=== PATIENT | male | born 1975 | race Caucasian/White ===

== ENCOUNTER → 2017-08-19 16:51 | Outpatient (CLI) | payer MEDICARE, MEDICAID, SELFPAY ==
[2017-08-19 18:03] LABS: Hematocrit 40.8 % (40-54); Hemoglobin 13.9 g/dl (13.0-16.5); Mean Corp Hgb Conc 34.1 g/gl (32-36); Mean Corpuscular Volume 93.8 fL (80-94); Mean Platelet Vol. 9.9 fl (6.2-12.0); Platelet Count 418 K/mm3 (150-450); RBC Distribution Width CV 12.5 % (11.6-14.6); Red Blood Count 4.35 M/mm3 (4.6-6.2); White Blood Count 14.3 K/mm3 (4.4-11.0)
[2017-08-19 18:28] LABS: Vitamin B12 366 pg/mL (211-911); Vitamin D,25 Hydroxy 13.5 ng/mL (29.95-100.01)
[2017-08-19 18:39] LABS: AST(SGOT) 14 U/L (15-37); Alanine Aminotransfer ALT/SGPT 22 U/L (16-61); Albumin, Serum 3.7 g/dL (3.2-5.0); Alkaline Phosphatase 90 U/L (45-117); Anion Gap 7 (5-15); BUN 10 mg/dL (7-18); BUN/Creat Ratio 9.4 RATIO (10-20); Calcium,Total 8.7 mg/dL (8.5-10.1); Chloride 103 mmol/L (98-107); Creatinine, Serum 1.06 mg/dL (0.70-1.30); EST Glomerular Filtration Rate 81 mL/min (>60); Est Glom Filt Rate - Afr Amer 98 mL/min (>60); Globulin 3.7 g/dL (2.2-4.2); Glucose 81 mg/dL (74-106); Potassium 3.9 mmol/L (3.5-5.1); Protein, Total 7.4 g/dL (6.4-8.2); Sodium Level 140 mmol/L (136-145); Thyroid Stim Hormone (TSH) 1.26 uIU/mL (0.358-3.74)
[2017-08-20 15:40] LABS: Absolute Lymphocyte Count 2.76 X10^3/ul (0.83-4.51); Absolute Neutrophil Count 9.4 X10^3/uL (2.0-7.7); Basophil# 0.08 X10^3/uL; Basophil% 0.6 % (0-1); Differential Indicated SCAN CRITERIA MET; Eosinophil# 0.59 X10^3/uL; Eosinophils% 4.1 % (0-5); Lymphocyte # 2.76 X10^3/ul (4.0); Lymphocyte % 19.1 % (19-41); Monocyte# 1.56 X10^3/uL; Monocyte% 10.8 % (0-10); Neutrophil # 9.42 X10^3/uL (2.7-7.7); Neutrophil % 65.1 % (47-70); POSITIVE COUNT NO; POSITIVE DIFFERENTIAL YES; POSITIVE MORPHOLOGY YES
[2017-08-20 16:39] LABS: Differential Comment SCANNED
== END ==
PROVIDERS: Visit Provider Family Medicine
DX: R53.81 Other malaise (principal)
CPT/HCPCS: 36415; 80053; 82306; 82607; 84403; 84443; 85025; 85027

== ENCOUNTER → 2017-09-04 12:48 | Outpatient (CLI) | payer MEDICARE, SELFPAY ==
--- NOTE | 2017-09-04 13:00 | RAD_ITS ---
STUDY: X-RAY - LUMBAR SPINE REASON FOR EXAM: Male, 42 years old. Chronic back pain. TECHNIQUE: 3 view(s) of the lumbar spine were obtained. COMPARISON: Comparison is made with prior study dated April 07, 2014. FINDINGS: There is straightening of the normal lumbar lordosis. There is no substantial scoliosis. There is a normal alignment of the vertebrae. There is multilevel endplate spondylosis of the lumbar vertebrae. Marked degree of disc space narrowing at the L5-S1 level. Moderate degree of disc space narrowing at the L4-L5 level. This has progressed as compared to prior study. The soft tissue structures are unremarkable. RAD/Lumbar Spine 2 or 3 Views IMPRESSION: Degenerative changes of the spine, as detailed above. Electronically Signed: Sal Cole MD at 16:09 EDT Tel [phone], Service support ,
== END ==
PROVIDERS: Family Provider Family Medicine; PCP Family Medicine; Visit Provider Anesthesiology Pain Medicine
DX: M54.9 Dorsalgia, unspecified (principal); G89.29 Other chronic pain
CPT/HCPCS: 72100

== ENCOUNTER 2017-10-29 18:00 | Outpatient (RCR) | payer MEDICARE, MEDICAID, SELFPAY ==
--- NOTE | 2017-09-25 18:55 | HP.PTEVAL ---
Patient's Visit Information HUDSON SHARIF is a 42 year old M referred to Physical Therapy by Renetta Rosen with a diagnosis of Back and leg pain and joint pain.. Date of Evaluation: 09/25/17 Physical Therapist: Isabela Salazar - Visit Plan Frequency: 2x /Week Duration: 4 Weeks Plan: 2X/week for week for general core, hip, knee strengthening being mindful of psoriatic and OA to improve general strength and decrease overall pain with HEP. - Subjective Subjective: Pt reports that many years ago he was dx with osteoporosis, OA, and psoriatic arthritis. THis is due to having an autoimmune disorder. 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 He is confused as to how this will help his pain due to an autoimmune disease. He is on Ultram 50 mg 2X/day and doing injections in his back. Hudson Mendoza was dx with DDD in his spine and Jessika said narrowing of the L4-L5 as well. This would be the first time that he would be doing PT. He is trying to get an appointment with [facility] as well. Somedays he walks with a limp. Dr Bloom said the pt has no cartilage left in his knees. He works 5 hours a day for 5 hours a week. Stairs: he can't run up the stairs. Somedays her can go recip and some says he has to go 2 feet to a stair. He notices more problems going down stairs than going up stairs. Sit to stand he usually does not have apronlem. - Pain Back pain Pain Intensity (Out of 10): 4 Pain Intensity Range: 7 knees and hip pain Pain Intensity (Out of 10): 4 Pain Intensity Range: 7 - Objective Gait: walks with decrease stance time on the R LE. Trunk ROM: flex 100%, ext 25% with increase motion on the L than the R, SB B 75%. LE MMT: Prone hip ext R 3+/5 and L 4-/5, hip flex R 4/5 and L 4+/5, knee ext B 4+/5, R knee flex 4/5 and L 4+/5, B hip abd 4+/5, pt is able to heel and toe raise B. Decreased IR of B hips with increase pain. -SLUMP test (just HS tightness B). -SLR (just HS tightness and some pain in B hips). Patella DTR B 2+/3 - Goals Goal 1:: I HEP Goal Time Frame: 4-6 Weeks Goal 2:: Increase B hip ext strength to 4/5 and hip flex strength to 4+/5 Goal Time Frame: 4-6 Weeks Goal 3:: Subjectively decrease pain in back and B hips and knees to 3/10 on daily basis Goal Time Frame: 4-6 Weeks - Rehabilitation Potential Rehabilitation Potential: Good - Anticipated Interventions Patient/Client Instruction: Educate patient on: Condition, Plan of Care For the Purpose of:: To decrease pain, To decrease swelling/inflammation, To increase ROM, To improve nutrient delivery to tissue, To improve muscle performance and motor function, To improve ability to perform ADL's, To increase tolerance to activity/condition/position, To improve ability of physical actions for home/community/work/leisure, To improve gait and locomotor functions, To improve health of tissue Therapeutic Exercise to Include: Strength training, Postural training, Active ROM, Dynamic Lumbar Stabilization For the Purpose of:: To decrease pain, To increase ROM, To improve nutrient delivery to tissue, To improve muscle performance and motor function, To improve ability to perform ADL's, To increase tolerance to activity/condition/position, To improve performance and independence with ADL's, To improve ability of physical actions for home/community/work/leisure, To improve health of tissue Thank you for the opportunity to evaluate your patient. For Medicare and Medicare HMO plans, please review the plan of care and approve it. It will need to be FAXED BACK to us at [phone] for Medicare purposes. Please let me know if there are questions or concerns regarding this plan of care. Physician Signature: Date:
--- NOTE | 2017-10-29 18:00 | DT_ITS ---
This patient was seen during an EMR downtime October 28, 2017 - November 04, 2017. This patient may have a combination of paper and electronic documentation or all paper documentation. All documentation is viewable within the e-chart portion of [facility] for each patient visit.
--- NOTE | 2018-02-05 17:43 | HP.PTDCNRP_ITS ---
HP - Discharge Summary (1) - Patient Information SUSAN SHARIF was seen in my office for initial evaluation on 09/25/17. The following Plan of Care was established for this patient: Initial Frequency: 2x /Week Initial Duration: 4 Weeks - Anticipated Interventions Patient/Client Instruction: Educate patient on: Condition, Plan of Care For the Purpose of:: To decrease pain, To decrease swelling/inflammation, To increase ROM, To improve nutrient delivery to tissue, To improve muscle performance and motor function, To improve ability to perform ADL's, To increase tolerance to activity/condition/position, To improve ability of physical actions for home/community/work/leisure, To improve gait and locomotor functions, To improve health of tissue Therapeutic Exercise to Include: Strength training, Postural training, Active ROM, Dynamic Lumbar Stabilization For the Purpose of:: To decrease pain, To increase ROM, To improve nutrient delivery to tissue, To improve muscle performance and motor function, To improve ability to perform ADL's, To increase tolerance to activity/condition/ position, To improve performance and independence with ADL's, To improve ability of physical actions for home/community/work/leisure, To improve health of tissue This patient was last seen in our office 10/29/17. Pertinent comments regarding their Physical therapy will appear below: JACK PT At this point I will be discontinuing this patient from physical therapy. I would be happy to see this patient again in the future if found appropriate by the physician. Thank you! Isabela Salazar
== END 2017-10-29 19:00 | disposition home or self-care (01) ==
LOC: PT 18:00
PROVIDERS: Family Provider Family Medicine; PCP Family Medicine; Visit Provider Anesthesiology Pain Medicine
DX: M54.9 Dorsalgia, unspecified (principal); M79.606 Pain in leg, unspecified; M25.50 Pain in unspecified joint
CPT/HCPCS: 97110; 97162

== ENCOUNTER → 2017-11-16 08:33 | Outpatient (CLI) | payer MEDICARE, MEDICAID, SELFPAY ==
--- NOTE | 2017-11-16 09:15 | MRI_ITS ---
STUDY: MRI LUMBAR SPINE WITHOUT CONTRAST REASON FOR EXAM: Male, 42 years old. Low back pain and joint pain. TECHNIQUE: Standardized fat and water weighted pulse sequences were obtained in the sagittal and axial planes. COMPARISON: None FINDINGS: T11-T12: (Sagittal only). Minimal anterior marginal spurs. Normal endplates. Normal disc height, hydration and morphology. Normal central canal and bilateral intervertebral neural foramina. T12-L1: (Sagittal only). Normal endplates. Normal disc height, hydration and morphology. Normal central canal and bilateral intervertebral neural foramina. Normal lumbar lordosis. There is no substantial scoliosis. Normal conus medullaris that terminates at the mid L1 vertebral body level. L1-2: Anterior marginal spurs. Moderate disc space height narrowing but normal disc hydration. Small posterior bulging disc. Normal central canal and bilateral lateral recesses. Normal facet joints. Normal bilateral intervertebral neural foramina. L2-3: Minimal anterior marginal spurs. Normal endplates. Moderate disc space height narrowing. Tiny posterior bulging disc. Normal central canal and bilateral lateral recesses. Normal facet joints. Normal bilateral intervertebral neural foramina. L3-4: Normal endplates. Normal disc height, hydration and morphology. Normal bilateral facet joints. Normal central canal and bilateral lateral recesses. Normal bilateral intervertebral neural foramina. L4-5: Moderate disc space height narrowing. Moderate loss of disc hydration. Moderate central canal stenosis with an AP canal diameter of 8 mm. Small posterior annular bulging disc. Mild asymmetric degenerative facet arthropathy. Normal bilateral intervertebral neural foramina. L5-S1: Pronounced disc space height narrowing. Modic type II degenerative vertebral marrow fatty changes underneath the vertebral endplates. Nearly grade 1 degenerative retrolisthesis of L5 on S1. Mild degenerative facet arthropathy. Normal central canal and bilateral lateral recesses. Normal bilateral intervertebral neural foramina. Normal visualized sacral ala. Normal visualized paraspinous soft tissue structures. MRI/Spine Lumbar (Routine) IMPRESSION: 1. No MRI evidence of lumbar extruded disc fragment. 2. Pronounced L5-S1 disc space height narrowing with Modic type II degenerative vertebral marrow fatty changes underneath the vertebral endplates and nearly grade 1 degenerative retrolisthesis of L5 on S1. 3. Moderate L4-L5 disc space height narrowing with moderate central canal stenosis and small posterior annular bulging disc. 4. Moderate L1-L2 disc space height narrowing with small posterior bulging disc. 5. Moderate L2-L3 disc space height narrowing with small posterior bulging disc. Electronically Signed: Jaswant Lynch MD at 14:27 EDT , Service support ,
== END ==
LOC: MRI 08:35
PROVIDERS: Family Provider Family Medicine; PCP Family Medicine; Visit Provider Anesthesiology Pain Medicine
DX: M54.9 Dorsalgia, unspecified (principal); M79.606 Pain in leg, unspecified
CPT/HCPCS: 72148

== ENCOUNTER 2017-12-24 06:20 | Emergency (ER) | payer MEDICARE, SELFPAY ==
[2017-12-24 06:22] VITALS: BP 133/90; PULSE 78; RESP 16; TEMP 36.7; O2SAT 98; BMI 22.9
--- NOTE | 2017-12-24 06:59 | ED.DCSUM_ITS ---
- ER Visit Summary Date of Service: 12/24/17 Chief Complaint: Right eye foreign body sensation History of Present Illness: The patient is a 42 M foreign body sensation right eye yesterday after using a weed Ricky. States felt some irritation however worsen. No change in the vision. Burning sensation. Does not wear contacts or glasses. 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 Did not well. No nausea or vomiting. History of asthma. Physical Examination: General: Alert and oriented ?3, no acute distress HEENT: Normocephalic, atraumatic. Moist mucosa membranes. Right eye examination moist Q-tip eyelid margins and everted, no foreign bodies. There was diffuse scleral injection. Tetracaine instilled, fluorescein strip with no dye uptake. Neck: supple, nontender. Cardiovascular: Regular rate and rhythm, no murmurs Respiratory: Normal breath sounds, symmetric, no distress Abdomen: Soft, nontender, nondistended Extremities: Nontender, no edema, pulses intact ?4 Neuro: no focal neurological deficits. Test Results: [] Emergency Department Course and Treatment: Patient exam concerns for conjunctivitis. No visual changes. Antibiotic drops will be provided. He can use rewetting drops in between. Follow-up with eye doctor. Treatment Plan: [] Disposition: Discharge Impression: Right eye conjunctivitis This note was generated with [employer] dictation software. It may contain incorrect words, spelling, and punctuation that were not noted in review of the chart prior to signing ED Disposition - Plan for ED Patient: Disposition: Home or Assisted Living Chief Complaint: Eye Problem Diagnosis: Conjunctivitis, right eye Instructions: ED Conjunctivitis Nonspecific Prescriptions: Polymyxin B Sulf/Trimethoprim [Polytrim Eye Drops] 1 drop RIGHT EYE BID #1 bottle Referrals: Jong Zaldivar MD [Primary Care Provider] - Additional Instructions: Follow with eye doctor for reevaluation.
== END 2017-12-24 07:08 | disposition home or self-care (01) ==
PROVIDERS: Emergency Provider Emergency Medicine; Family Provider Family Medicine; PCP Family Medicine
DX: H10.9 Unspecified conjunctivitis (principal); K22.2 Esophageal obstruction; T18.128A Food in esophagus causing other injury, initial encounter; X58.XXXA Exposure to other specified factors, initial encounter; Y93.9 Activity, unspecified; Y92.9 Unspecified place or not applicable; Y99.9 Unspecified external cause status; K44.9 Diaphragmatic hernia without obstruction or gangrene; J44.9 Chronic obstructive pulmonary disease, unspecified; M54.9 Dorsalgia, unspecified; G89.29 Other chronic pain; F17.210 Nicotine dependence, cigarettes, uncomplicated; Z79.899 Other long term (current) drug therapy
CPT/HCPCS: 43247; 93005; 99282; 99283; J7030; J7120; A4216; J1610; J2405

== ENCOUNTER 2017-12-24 19:35 | Outpatient (CLI) | payer MEDICARE, MEDICAID, SELFPAY ==
[2017-12-24 19:35] VITALS: BP 159/105; PULSE 79; RESP 24; TEMP 36.9; O2SAT 98; BMI 22.9
[2017-12-24] MEDS: 0.9% Normal Saline 1,000 ML 1000 ML IV (20:12)
[2017-12-24] MEDS: Glucagon 1 MG/ML Syringe IV (20:12)
--- NOTE | 2017-12-24 21:01 | HP.PCM_ITS ---
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 His primary care physician is Dr. Hudson Zaldivar. 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 The patient has had at least 3 or 4 previous upper endoscopies. The patient has had esophageal dilatation. The patient has had a single episode of food bolus foreign body obstruction approximately 7 years ago. He claims to have known a small hiatal hernia. He has had a previous history of reflux and was on chronic reflux medication but states that recently over an extended period time he has not had reflux symptoms. He states that he ate a piece of baked chicken 2-3 hours ago and it is failed to pass. He is a asthmatic. He is on 3 different inhalers that he takes as needed. He is a 1-1/ 2 pack per day smoker. He suggests that he has had previous history of chronic gastritis and he is not medicating it currently. He is on other medication which he takes only as he sees indicated. He has not had any abdominal surgery. Past Medical History Allergies epinephrine Allergy (Verified 12/24/17 06:24) Unknown Home Medications: Ambulatory Orders Medication Instructions Recorded Albuterol IH (ProAir) [Proair Hfa] 1 puff INHALATION Q4H PRN PRN 04/30/13 Albuterol/Ipratropium [Combivent 2 puff INHALATION 4X/DAY 04/30/13 Inhaler] Clonazepam [Klonopin] 0.5 mg PO TID PRN 04/30/13 Duloxetine Hcl [Cymbalta] 30 mg PO DAILY 04/30/13 Polymyxin B Sulf/Trimethoprim 1 drop RIGHT EYE BID #1 bottle 12/24/17 [Polytrim Eye Drops] traMADol [Ultram (G)] 50 mg PO BID 12/24/17 Surgical History: appendectomy - Esophagoscopy with foreign body removal and on a separate occasion diagnostic endoscopy and on a separate occasion upper endoscopy with esophageal dilatation 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, - - Right knee arthroscopy Smoking Status: Current every day smoker Tobacco Use: Cigarettes - 1-1/2 pack per day Alcohol: None Review of Systems Constitutional: Denies: Anorexia Eyes: Denies: Blurred vision HEENT: Denies: Difficulty Hearing Cardiovascular: Denies: Chest Pain Respiratory: Reports: Cough Gastrointestinal: Denies: Abdominal Pain VTE Information - Inpt Only VTE Present on Admission: No Patient Problems: Active and Suspected Problems Distal esophageal obstruction due to foreign body (Acute) Asthma (Acute) Tobacco abuse (Acute) - Physical Exam General: Alert, Oriented x3, Cooperative, No apparent distress HEENT: Atraumatic Oral: Moist Mucosa Neck: Supple Lungs: Clear to auscultation, - - Increased anterior posterior diameter Cardiovascular: Regular rate, Regular Rhythm Abdomen: Bowel Sounds Present, Soft, Non Tender, Non-Distended Extremities: Clubbing Neurological: Cranial nerves II-XII grossly intact Psych/Mental Status: Normal Affect Vital Signs Temp Pulse Resp BP Pulse Ox 98.4 F 79 24 H 159/105 H 98 12/24/17 19:35 12/24/17 19:35 12/24/17 19:35 12/24/17 19:35 12/24/17 19:35 Oxygen Delivery Method Room Air Weight: 138 lb Body Mass Index (BMI) 22.9 Assessment/Plan All Active Problems Conjunctivitis, right eye (Acute) Distal esophageal obstruction due to foreign body (Acute) Asthma (Acute) Tobacco abuse (Acute) Baked chicken esophageal foreign body obstruction. This is his second episode of food bolus obstruction. He claims that he has had previous endoscopy performed by Dr. Kyle Roberts and actually a previous dilatation. The patient does not know a diagnosis for esophageal disorder. He states that he has never been given a reason for his esophageal dysfunction per Dr. Kyle Roberts I have discussed with the patient he has higher risk for complication. He may have structural abnormality of the esophagus. He has COPD with ongoing heavy tobacco addiction. I am recommending to him that we perform this under general endotracheal intubation. I have cautioned him that this may not simply be a upper endoscopy with pushing the mass into the stomach. Fragment removal may be required. The patient is at risk for pulmonary aspiration. He has had an opportunity to ask and have questions answered. He is well aware that adverse outcome including perforation bleeding aspiration pneumonia are all a possibility. We will proceed at his discretion. Jesus Mcdonald M.D., F.A.C.S.
--- NOTE | 2017-12-24 21:03 | EKGRS_ITS ---
Test Reason : PRE-OP Blood Pressure : / mmHG Vent. Rate : 066 BPM Atrial Rate : 066 BPM P-R Int : 102 ms QRS Dur : 088 ms QT Int : 390 ms P-R-T Axes : 074 084 063 degrees QTc Int : 408 ms Sinus rhythm with short AR Otherwise normal ECG Confirmed by EVELIN FELICIANO, KOLE ([id number]), editor news CLARA CARRERA ([id number]) on 12/26/2017 11:48:18 AM Referred By: REFUGIO Confirmed By:KOLE WATERS MD
--- NOTE | 2017-12-24 22:16 | PCM.OPRPT ---
Problem List (1) Distal esophageal obstruction due to foreign body Status: Acute (2) Asthma Status: Acute Qualifiers: Asthma complication type: unspecified (3) Tobacco abuse Status: Acute Report of Operation Date of Procedure: 12/24/17 Pre-Operative Diagnosis: Esophageal food foreign body obstruction Post-Operative Diagnosis: Impaction in the distal esophagus at the e.g. junction Food foreign body obstruction Surgery/Procedure Performed:: Esophagogastroduodenoscopy with retrieval of esophageal foreign body Description of Surgical Findings:: Timeout and informed consent was obtained. 42-year-old gentleman was taken to the operating room. He underwent general endotracheal intubation. He was placed in left lateral decubitus position. Kneepads and shoulder roll were placed. Flexible gastroscope was inserted passed a bite block. The proximal mid distal esophagus not remarkable all the way down to the GE junction where there was a large food foreign bile duct obstruction consistent with the piece of baked chicken that the patient described. I initially tried to gently manipulate the piece into the stomach and was not able to. I then tried to get Shashank firm retrieval net around it that was not successful. I then placed a 36 Bhutanese chest tube on the end of the gastroscope and is attempted to suction the foreign body which was not successful. I then utilized a 4 pronged grasper to grab the apex of the pes and with that was able to successfully retrieve the majority of the obstruction. I then replaced the scope and additional time was able to assure clearance of the distal esophagus. There was a significant amount of food still remaining within the stomach. There was no antral erythema. Duodenum had some very minimal irritation. There were no additional biopsies performed today. Due to the acuteness of the situation I recommend a follow-up outpatient endoscopy to further evaluate his esophageal dysfunction. There was some mild irritation of the esophagus from the repetitive instrumentation and removal of foreign body. There is no active bleeding. I did not see any disruption. He seemed to tolerate the procedure well. He is taken to the recovery area in satisfactory condition. Specimens include the floor body impaction which was discarded. Drains none. Blood loss minimal. eJsus Mcdonald M.D., F.A.C.S. Type of Anesthesia:: General Anesthesiologist: Marleen Carter
[2017-12-24 22:30] VITALS: BP 134/92; BP 159/105; PULSE 90; RESP 18; TEMP 37.2; O2SAT 99
--- NOTE | 2017-12-24 22:31 | DCINST_ITS ---
Discharge Diet: - - Clear liquids for 24 hours orally. No excessively hot liquids Discharge Activity: Return to Normal Activity, May Drive May shower in (days): 1 Additional Instructions: I am recommending that as an outpatient in the future that you pursue esophageal manometry to evaluate the mechanical function of your esophagus. Allergies/Adverse Reactions: Allergies epinephrine Allergy (Verified 12/24/17 06:24) Unknown Medications to take at Discharge Albuterol IH (ProAir) [Proair Hfa] 1 puff INHALATION Q4H PRN PRN 04/30/13 Albuterol/Ipratropium [Combivent Inhaler] 2 puff INHALATION 4X/DAY 04/30/13 Clonazepam [Klonopin] 0.5 mg PO TID PRN 04/30/13 Duloxetine Hcl [Cymbalta] 30 mg PO DAILY 04/30/13 Polymyxin B Sulf/Trimethoprim [Polytrim Eye Drops] 1 drop RIGHT EYE BID #1 bottle 12/24/17 traMADol [Ultram (G)] 50 mg PO BID 12/24/17 Primary Care Physician: Jong Zaldivar MD [Primary Care Provider] - Test Results: Test results from this visit will be discussed in further detail at your follow- up appointment, if applicable. Please Follow Up With: Jesus Mcdonald MD - [phone] When: Call to make an appointment to be seen in about 10 days.
[2017-12-24 22:45] VITALS: BP 130/89; BP 159/105; PULSE 74; RESP 18; O2SAT 100
[2017-12-24 22:50] VITALS: BP 120/81; BP 159/105; PULSE 78; RESP 16; TEMP 36.8; O2SAT 98
[2017-12-24 22:55] VITALS: BP 159/105
--- NOTE | 2017-12-25 01:13 | ED.DCSUM_ITS ---
- ER Visit Summary Date of Service: 12/25/17 Chief Complaint: Chicken stuck in esophagus History of Present Illness: The patient is a [address] Lagos. Reports that approximately 2 hours ago he was eating chicken and got stuck in his lower esophagus. Reports that he is a dull pressure with 7-10 worst 510 currently. Denies any nausea, vomiting, or diarrhea. Reports that a similar episode approximately 7 years ago. Physical Examination: Vitals: Stable. Afebrile. General: Well-nourished and well-developed. Head: Normocephalic atraumatic. Neck: Supple, no lymphadenopathy. No JVD. Nontender. Cardiovascular: Regular rate and rhythm. No murmurs. Respiratory: No respiratory distress. Clear to auscultation bilaterally. Abdominal: Soft, nontender, nondistended, normal bowel sounds. No guarding, rebound, or peritoneal signs. Back: Nontender. Extremities: Nontender, no edema. Skin: Normal color, no rash. Neurologic: Alert and oriented ?3. Cranial nerves II through XII are intact. Normal strength and sensation. Psych: Normal affect. Emergency Department Course and Treatment: Patient had an IV placed. Is given dose of glucagon IV. There is no resolution of the impaction. Treatment Plan: Patient was discussed with Dr. Jesus Mcdonald. He was taken down to the operating room for endoscopy. Disposition: Transfer to the operating room in stable condition. Impression: 1. Esophageal impaction. This note was generated with [employer] dictation software. It may contain incorrect words, spelling, and punctuation that were not noted in review of the chart prior to signing ED Disposition - Plan for ED Patient: Disposition: Acute Care [facility] Chief Complaint: Foreign Body
== END 2017-12-24 23:04 | disposition home or self-care (01) ==
LOC: ED 20:16 → EN 21:05
PROVIDERS: Emergency Provider Emergency Medicine; Family Provider Family Medicine; PCP Family Medicine; Visit Provider Surgery
PROC: 0DJ08ZZ Inspection of Upper Intestinal Tract, Via Natural or Artificial Opening Endoscopic (ICD-10-PCS; CPT 43235; principal; 2017-12-24 22:00)
DX: K22.2 Esophageal obstruction (principal); T18.128A Food in esophagus causing other injury, initial encounter; X58.XXXA Exposure to other specified factors, initial encounter; Y93.9 Activity, unspecified; Y92.9 Unspecified place or not applicable; Y99.9 Unspecified external cause status; K44.9 Diaphragmatic hernia without obstruction or gangrene; J44.9 Chronic obstructive pulmonary disease, unspecified; M54.9 Dorsalgia, unspecified; G89.29 Other chronic pain; F17.210 Nicotine dependence, cigarettes, uncomplicated; Z79.899 Other long term (current) drug therapy
CPT/HCPCS: 43247; 93005; 99282; J7030; J7120; A4216; J1610; J2405

== ENCOUNTER 2017-12-26 20:11 | Emergency (ER) | payer MEDICARE, MEDICAID, SELFPAY ==
[2017-12-26 20:12] VITALS: BP 153/118; PULSE 93; RESP 17; TEMP 36.9; O2SAT 98; BMI 20.9
[2017-12-26] MEDS: Glucagon 1 MG/ML Syringe IM (20:33)
--- NOTE | 2017-12-26 21:04 | ED.DCSUM_ITS ---
- ER Visit Summary Date of Service: 12/26/17 Chief Complaint: Esophageal food impaction History of Present Illness: The patient is a 42 M presenting with esophageal foreign body. Patient was eating hamburger and Vietnamese fries around 6:30 PM. He states he felt his food get stuck. He has not been able to swallow liquids since that time. He presented to the ED 2 days ago for similar complaints and was scoped by Dr. Mcdonald at that time. He states prior to that he had not had these symptoms in the past 7 years. Denies other complaints. Physical Examination: Vitals are stable. Patient is afebrile. Alert no acute distress. HEENT exam is unremarkable. Neck is supple. Lungs are clear and equal bilaterally. Heart is regular rate and rhythm. Abdomen is soft nontender nondistended. Extremities are unremarkable. Skin is warm and dry. No focal neurologic deficit. Remainder of exam is unremarkable. Emergency Department Course and Treatment: Patient is given glucagon IM. He is unable to tolerate liquids. Discussed with Dr. Paniagua. He was consented for procedural sedation and endoscopy. Endoscopy was performed by Dr. Paniagua. Foreign body was pushed through to his stomach. He had a brief episode of hypoxia which resolved with Ambu bag. He was observed following procedural sedation. Advised full liquid diet and follow-up with Dr. Roberts. Advised return to ED if worsening complaints. Disposition: Discharge home Impression: Esophageal food impaction This note was generated with [employer] dictation software. It may contain incorrect words, spelling, and punctuation that were not noted in review of the chart prior to signing ED Disposition - Plan for ED Patient: Chief Complaint: Foreign Body Referrals: Jong Zaldivar MD [Primary Care Provider] -
--- NOTE | 2017-12-26 21:34 | PCM.CONS.GEN ---
Reason for Consult Date of Consultation: 12/26/17 Reason for Consultation: Distal esophageal food impaction History of Present Illness: The patient is a 42 year old M presents with likely distal esophageal food impaction with lower chest pain and spitting up his saliva. Patient states he had a hamburger ivania which he states he cut up with a fork about 6:30 PM. However midway through the ivania he noticed some was stuck in his lower esophagus he was unable to pass. He states he has been unable to drink clear liquids as well. Patient did have the same issue with chicken 2 days ago which he was intubated and had an EGD and removal of chicken by Dr. Mcdonald. On previous EGD there is no noted stricture of the esophagus. Past Medical History Allergies epinephrine Allergy (Verified 12/24/17 06:24) Unknown Home Medications: Ambulatory Orders Medication Instructions Recorded Albuterol IH (ProAir) [Proair Hfa] 1 puff INHALATION Q4H PRN PRN 04/30/13 Albuterol/Ipratropium [Combivent 2 puff INHALATION 4X/DAY 04/30/13 Inhaler] Clonazepam [Klonopin] 0.5 mg PO TID PRN 04/30/13 Duloxetine Hcl [Cymbalta] 30 mg PO DAILY 04/30/13 Polymyxin B Sulf/Trimethoprim 1 drop RIGHT EYE BID #1 bottle 12/24/17 [Polytrim Eye Drops] traMADol [Ultram (G)] 50 mg PO BID 12/24/17 Surgical History: appendectomy - Esophagoscopy with foreign body removal and on a separate occasion diagnostic endoscopy and on a separate occasion upper endoscopy with esophageal dilatation 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 Denies: Abdominal Pain - Physical Exam General: Alert, Cooperative Lungs: Normal air movement Cardiovascular: Regular rate Abdomen: Soft, Non Tender, Non-Distended Extremities: No clubbing, No cyanosis, No edema Vital Signs Temp Pulse Resp BP Pulse Ox 98.5 F 93 17 153/118 H 98 12/26/17 20:12 12/26/17 20:12 12/26/17 20:12 12/26/17 20:12 12/26/17 20:12 Oxygen Delivery Method Room Air Weight: 125 lb 14.143 oz Body Mass Index (BMI) 20.9 Assessment/Plan All Active Problems Distal esophageal obstruction due to foreign body (Acute) Asthma (Acute) Tobacco abuse (Acute) 42-year-old with distal esophageal obstruction 1. Plan to do an EGD with removal of foreign body. Discussed procedure including risks but not limited to bleeding, perforation, aspiration of food particles, anesthesia. Patient had no further questions at this time. Sita Paniagua M.D. Pager: [phone] [facility] [address] [place] [address], [facility], [address] [place] [address] Office: [phone] Code Visit Inpatient E&M: 26196 Init Hosp L1
--- NOTE | 2017-12-26 21:37 | CON.PCM_ITS ---
Reason for Consult Date of Consultation: 12/26/17 Reason for Consultation: Distal esophageal food impaction History of Present Illness: The patient is a 42 year old M presents with likely distal esophageal food impaction with lower chest pain and spitting up his saliva. Patient states he had a hamburger ivania which he states he cut up with a fork about 6:30 PM. However midway through the ivania he noticed some was stuck in his lower esophagus he was unable to pass. He states he has been unable to drink clear liquids as well. Patient did have the same issue with chicken 2 days ago which he was intubated and had an EGD and removal of chicken by Dr. Mcdonald. On previous EGD there is no noted stricture of the esophagus. Past Medical History Allergies epinephrine Allergy (Verified 12/24/17 06:24) Unknown Home Medications: Ambulatory Orders Medication Instructions Recorded Albuterol IH (ProAir) [Proair Hfa] 1 puff INHALATION Q4H PRN PRN 04/30/13 Albuterol/Ipratropium [Combivent 2 puff INHALATION 4X/DAY 04/30/13 Inhaler] Clonazepam [Klonopin] 0.5 mg PO TID PRN 04/30/13 Duloxetine Hcl [Cymbalta] 30 mg PO DAILY 04/30/13 Polymyxin B Sulf/Trimethoprim 1 drop RIGHT EYE BID #1 bottle 12/24/17 [Polytrim Eye Drops] traMADol [Ultram (G)] 50 mg PO BID 12/24/17 Surgical History: appendectomy - Esophagoscopy with foreign body removal and on a separate occasion diagnostic endoscopy and on a separate occasion upper endoscopy with esophageal dilatation 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 Denies: Abdominal Pain - Physical Exam General: Alert, Cooperative Lungs: Normal air movement Cardiovascular: Regular rate Abdomen: Soft, Non Tender, Non-Distended Extremities: No clubbing, No cyanosis, No edema Vital Signs Temp Pulse Resp BP Pulse Ox 98.5 F 93 17 153/118 H 98 12/26/17 20:12 12/26/17 20:12 12/26/17 20:12 12/26/17 20:12 12/26/17 20:12 Oxygen Delivery Method Room Air Weight: 125 lb 14.143 oz Body Mass Index (BMI) 20.9 Assessment/Plan All Active Problems Distal esophageal obstruction due to foreign body (Acute) Asthma (Acute) Tobacco abuse (Acute) 42-year-old with distal esophageal obstruction 1. Plan to do an EGD with removal of foreign body. Discussed procedure including risks but not limited to bleeding, perforation, aspiration of food particles, anesthesia. Patient had no further questions at this time. Sita Paniagua M.D. Pager: [phone] [facility] [address] [place] [address], [facility], [address] [place] [address] Office: [phone] Code Visit Inpatient E&M: 16510 Init Hosp L1
[2017-12-26] MEDS: Propofol 200 MG/20 ML Vial IV BOLUS (22:25)
[2017-12-26] MEDS: proMETHazine 25 MG/ML Syringe 12.5 MG IV (22:26)
[2017-12-26 22:35] VITALS: BP 143/80; PULSE 62; RESP 22; O2SAT 99
[2017-12-26 22:40] VITALS: BP 119/87; PULSE 64; RESP 21; O2SAT 94
--- NOTE | 2017-12-26 22:42 | PCM.OPRPT ---
Report of Operation Date of Procedure: 12/26/17 Pre-Operative Diagnosis: Distal esophageal food impaction Post-Operative Diagnosis: Same Surgery/Procedure Performed:: EGD Type of Anesthesia:: MAC Special Medications: per Dr. Mcgill in ER Specimen's removed: None Estimated Blood Loss (mL): None Description of Procedure: Procedure: EGD After obtaining informed consent, the endoscope was passed under direct visualization. Throughout the procedure, patient's blood pressure, pulse, oxygen saturations were monitored continuously by Dr. Mcgill, ER physician. The endoscope was introduced through the mouth and advanced to the esophagus where fluid was suctioned. There is noted to be stricture at the distal esophagus where there was a chunk of meat. The insufflation did help pass the meat through the stricture into the stomach. Picture of the stricture was taken. The upper GI endoscopy was accomplished without difficulty. Patient tolerated procedure well. Findings: Stricture of distal esophagus likely Schatzki's ring Impression: 1. Stricture at distal esophagus--Schatzki's ring Recommendations: Full liquid diet with protein drinks until follow-up with GI for dilation. - Complications none
[2017-12-26 22:44] VITALS: BP 119/87; PULSE 81; RESP 26; O2SAT 94
[2017-12-26 22:45] VITALS: BP 126/82; PULSE 64; RESP 30; O2SAT 92
--- NOTE | 2017-12-26 22:46 | ED.RN ---
2235- BEDSIDE PROCEDURE COMPLETE. AFTER COMPLETING THE PROCEDURE PT SATS DROPPED TO THE 70'S. PT BAGGED VIA NRB MASK UNTIL OXYGEN SATURATION ANTONIO TO THE 90'S. PT CURRENTLY ON 2L NC AND CONTINUING TO BE MONITORED. PT AROUSABLE ON CALLING, ABLE TO MOVE ALL EXTREMITIES.
--- NOTE | 2017-12-26 22:52 | ED.DEP ---
ED Disposition - Plan for ED Patient: Chief Complaint: Foreign Body Instructions: ED Foreign Body Esophageal Rslv Referrals: Jong Zaldivar MD [Primary Care Provider] - Kyle Roberts MD [NON-STAFF] -
[2017-12-26 23:09] VITALS: BP 115/79; PULSE 80; RESP 18; O2SAT 93
[2017-12-27 01:18] VITALS: BP 123/79; PULSE 74; RESP 15; O2SAT 100
[2017-12-27 01:19] VITALS: BP 123/79; PULSE 74; RESP 15; O2SAT 98
--- NOTE | 2017-12-27 01:20 | ED.RN ---
THIS RN EDUCATED PT ON WRITTEN AND VERBAL DISCHARGE INSTRUCTIONS AND VERBALIZES UNDERSTANDING. PT EDUCATED TO EAT SOFT FOODS. PROPER SWALLOWING TECHNIQUES. PT VERBALIZES UNDERSTANDING OF ALL INSTRUCTIONS AND DENIES ANY FURTHER QUESTIONS. PT IV D/C AND COVERED WITH 2X2 GAUZE DRESSING AND PAPER TAPE. TOLERATED WELL. PT AWAITING RIDE.
== END 2017-12-27 01:38 | disposition home or self-care (01) ==
PROVIDERS: Surgery; Emergency Provider Emergency Medicine; Family Provider Family Medicine; PCP Family Medicine
PROC: 0DJ08ZZ Inspection of Upper Intestinal Tract, Via Natural or Artificial Opening Endoscopic (ICD-10-PCS; CPT 43235; principal; 2017-12-26 22:15)
DX: K22.2 Esophageal obstruction (principal); T18.128A Food in esophagus causing other injury, initial encounter; X58.XXXA Exposure to other specified factors, initial encounter; Y93.9 Activity, unspecified; Y92.9 Unspecified place or not applicable; Y99.9 Unspecified external cause status; R09.02 Hypoxemia; J45.909 Unspecified asthma, uncomplicated; F17.200 Nicotine dependence, unspecified, uncomplicated; Z79.899 Other long term (current) drug therapy
CPT/HCPCS: 43247; 10120; 96372; 96374; 99284; J7030; A4216; J1610

== ENCOUNTER → 2018-02-11 17:26 | Outpatient (CLI) | payer MEDICARE, MEDICAID, SELFPAY ==
[2018-02-11 19:15] LABS: Amphetamine Urine VISTA NEGATIVE (<1000 ng/mL); Barbiturate Urine VISTA NEGATIVE (< 200 ng/mL); Benzodiazepine Urine VISTA NEGATIVE (< 200 ng/mL); Cocaine Urine VISTA NEGATIVE (< 300 ng/mL); Ecstacy Urine VISTA NEGATIVE (< 500 ng/mL); Methadone Urine VISTA NEGATIVE (< 300 ng/mL); PCP Urine VISTA NEGATIVE (< 25 ng/mL); THC Urine VISTA NEGATIVE (< 50 ng/mL); Vista UDS pH Range 5
== END ==
PROVIDERS: Family Provider Family Medicine; PCP Family Medicine; Visit Provider Anesthesiology Pain Medicine
DX: F11.20 Opioid dependence, uncomplicated (principal)
CPT/HCPCS: 80307

== ENCOUNTER → 2018-04-08 16:38 | Outpatient (CLI) | payer MEDICARE, MEDICAID, SELFPAY ==
[2018-04-08 19:06] LABS: Amphetamine Urine VISTA NEGATIVE (<1000 ng/mL); Barbiturate Urine VISTA NEGATIVE (< 200 ng/mL); Benzodiazepine Urine VISTA NEGATIVE (< 200 ng/mL); Cocaine Urine VISTA NEGATIVE (< 300 ng/mL); Ecstacy Urine VISTA NEGATIVE (< 500 ng/mL); Methadone Urine VISTA NEGATIVE (< 300 ng/mL); PCP Urine VISTA NEGATIVE (< 25 ng/mL); THC Urine VISTA NEGATIVE (< 50 ng/mL); Vista UDS pH Range 7
== END ==
PROVIDERS: Family Provider Family Medicine; PCP Family Medicine; Referring Provider Anesthesiology Pain Medicine; Visit Provider Anesthesiology Pain Medicine
DX: F11.20 Opioid dependence, uncomplicated (principal)
CPT/HCPCS: 80307

== ENCOUNTER → 2018-06-04 10:12 | Outpatient (CLI) | payer MEDICARE, SELFPAY ==
[2018-06-04 12:09] LABS: Hematocrit 42.8 % (40-54); Hemoglobin 14.1 g/dl (13.0-16.5); Mean Corp Hgb Conc 32.9 g/gl (32-36); Mean Corpuscular Hgb 31.3 pg (27.0-32.0); Mean Corpuscular Volume 94.9 fL (80-94); Platelet Count 369 K/mm3 (150-450); RBC Distribution Width CV 12.1 % (11.6-14.6); RBC Distribution Width SD 41.8 fl (35.1-43.9); Red Blood Count 4.51 M/mm3 (4.6-6.2); White Blood Count 7.4 K/mm3 (4.4-11.0)
[2018-06-04 12:13] LABS: Scan Indicated on CBC? Y/N NO
[2018-06-04 12:34] LABS: Vitamin D,25 Hydroxy 82.3 ng/mL (29.95-100.01)
[2018-06-04 12:43] LABS: ALB/GLOB Ratio 0.9 RATIO (0.9-2.4); AST(SGOT) 14 U/L (15-37); Alanine Aminotransfer ALT/SGPT 30 U/L (16-61); Albumin, Serum 3.5 g/dL (3.2-5.0); Alkaline Phosphatase 73 U/L (45-117); Anion Gap 7 (5-15); BUN 11 mg/dL (7-18); BUN/Creat Ratio 8.5 RATIO (10-20); Calcium,Total 8.6 mg/dL (8.5-10.1); Chloride 105 mmol/L (98-107); Cholesterol 190 mg/dL (200); Creatinine, Serum 1.29 mg/dL (0.70-1.30); EST Glomerular Filtration Rate 64 mL/min (>60); Est Glom Filt Rate - Afr Amer 78 mL/min (>60); Globulin 3.8 g/dL (2.2-4.2); Glucose 92 mg/dL (74-106); High Density Lipoprotein 45 mg/dL; Potassium 4.1 mmol/L (3.5-5.1); Protein, Total 7.3 g/dL (6.4-8.2); Sodium Level 137 mmol/L (136-145); Thyroid Stim Hormone (TSH) 1.05 uIU/mL (0.358-3.74); Triglycerides 54 mg/dL; Very Low Density Lipoprotein 11 mg/dL (5-40)
== END ==
PROVIDERS: Family Provider Family Medicine; PCP Family Medicine; Visit Provider Family Medicine
DX: L40.50 Arthropathic psoriasis, unspecified (principal); K58.9 Irritable bowel syndrome, unspecified; Z13.220 Encounter for screening for lipoid disorders
CPT/HCPCS: 36415; 80053; 80061; 82306; 84443; 85027

== ENCOUNTER → 2018-07-01 15:44 | Outpatient (CLI) | payer MEDICARE, SELFPAY ==
--- NOTE | 2018-07-01 15:48 | RAD_ITS ---
HISTORY: RIGHT POSTERIOR LOWER RIB PAIN INCREASING X SEVERAL YEARS, previous left rib fracture. COMPARISON: Left ribs 05/09/2016 FINDINGS: Right ribs with PA chest 5 views The right ribs appear intact. No fracture or suspicious bony lesion. No pneumothorax or suspicious pleural fluid collection. Biapical mild scarring. COPD with hyperinflation. RAD/Ribs Uni Min 3V w/PA Chest IMPRESSION: 1. Negative right ribs. No fracture seen. 2. COPD. at 0650 Reported and signed by: Souleymane Williamson MD Electronically Signed: Souleymane Williamson, at 6:49 EST Tel , Service support ,
== END ==
PROVIDERS: Family Provider Family Medicine; PCP Family Medicine; Referring Provider Anesthesiology Pain Medicine; Visit Provider Anesthesiology Pain Medicine
DX: R07.81 Pleurodynia (principal)
CPT/HCPCS: 71101

== ENCOUNTER 2018-08-25 05:20 | Emergency (ER) | payer OTHER, SELFPAY ==
[2018-08-25 05:21] VITALS: BP 143/93; PULSE 84; RESP 16; TEMP 36.6; O2SAT 100; BMI 23.3
--- NOTE | 2018-08-25 05:39 | ED.VISSUMM ---
- ER Visit Summary Date of Service: 08/25/18 Chief Complaint: Right lateral mid back pain History of Present Illness: The patient is a 43 M of disc disease of his lower back. Patient states he was pulling parts out of the van and started developing right lateral back pain. No falls or trauma. No numbness or weakness in his upper or lower extremities. No fever. Patient states this was at work at the time. Physical Examination: Middle-aged male. No acute distress. Vital signs are stable. He is afebrile. HEENT exam unremarkable. Neck nontender no lymphadenopathy. Lungs clear to auscultation bilaterally. Heart regular rhythm no murmur. Chest wall nontender. Abdomen soft and nontender. Normal bowel sounds no peritoneal signs. Remedies patient is moving all 4 extremities. Neurovascular intact. 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 Dorsi plantar flexion intact. Negative straight leg raise bilaterally. Negative cauda equina or saddle anesthesia. Normal medial thigh sensation. Normal motor strength with dorsi and plantar flexion. Back the cervical, thoracic and lumbar spine are nontender. His right trapezius soft tissue tenderness to palpation consistent with a trapezial muscle strain. There is no ecchymosis or bruising. No bony tenderness. No redness or warmth. Neurologically is awake alert with no focal motor or sensory deficits. Test Results: None Emergency Department Course and Treatment: Motrin for pain. Treatment Plan: Light duty at work. Ice and heat to his back. Motrin for pain and inflammation. Follow-up with corporate care. Disposition: Discharge Impression: Right trapezius back strain This note was generated with [employer]ell[employer] dictation software. It may contain incorrect words, spelling, and punctuation that were not noted in review of the chart prior to signing ED Disposition - Plan for ED Patient: Referrals: Jong Zaldivar MD [Primary Care Provider] -
--- NOTE | 2018-08-25 05:41 | ED.DEP ---
ED Disposition - Plan for ED Patient: Disposition: Home or Assisted Living Instructions: ED Sprain Strain Lumbar Referrals: Jong Zaldivar MD [Primary Care Provider] - As Needed Corporate,Care [GROUP OF PHYSICIANS] - 1 Week if not improving Additional Instructions: Motrin for pain and inflammation. 600 mg 3 or 4 times a day. Ice to your back to decrease inflammation. Heat to relax the muscles. Hot shower and bath. Massage. Light duty at work. No lifting more than 10 pounds over the next week. Follow-up with corporate care as needed.
[2018-08-25] MEDS: Ibuprofen 600 MG Tablet PO (05:53)
[2018-08-25 05:58] VITALS: RESP 14
== END 2018-08-25 06:23 | disposition home or self-care (01) ==
PROVIDERS: Emergency Provider Emergency Medicine; Family Provider Family Medicine; PCP Family Medicine
DX: S46.811A Strain of other muscles, fascia and tendons at shoulder and upper arm level, right arm, initial encounter (principal); X50.9XXA Other and unspecified overexertion or strenuous movements or postures, initial encounter; Y93.9 Activity, unspecified; Y92.9 Unspecified place or not applicable; Y99.9 Unspecified external cause status; J45.909 Unspecified asthma, uncomplicated; Z72.0 Tobacco use
CPT/HCPCS: 99283

== ENCOUNTER → 2018-09-02 16:09 | Outpatient (CLI) | payer OTHER, SELFPAY ==
[2018-08-29 07:34] VITALS: BMI 23.3
--- NOTE | 2018-09-02 16:15 | RAD_ITS ---
STUDY: X-RAY - LUMBAR SPINE REASON FOR EXAM: Male, 43 years old. Chronic low back pain TECHNIQUE: 2 view(s) of the lumbar spine were obtained. COMPARISON: None FINDINGS: Normal lumbar lordosis. There is no substantial scoliosis. There is a normal alignment of the vertebrae. Normal vertebral bodies and endplates. Disc space narrowing at L4-5, and L5-S1. The soft tissue structures are unremarkable. RAD/Lumbar Spine 2 or 3 Views IMPRESSION: Degenerative changes at L4-5 and L5-S1. Electronically Signed: Fred Ko MD at 17:04 EDT , Service support ,
== END ==
PROVIDERS: Family Provider Family Medicine; PCP Family Medicine; Referring Provider Anesthesiology Pain Medicine; Visit Provider Anesthesiology Pain Medicine
DX: M54.9 Dorsalgia, unspecified (principal)
CPT/HCPCS: 72100

== ENCOUNTER 2018-10-09 16:30 | Outpatient (RCR) | payer MEDICARE, MEDICAID, SELFPAY ==
[2018-08-29 07:34] VITALS: BMI 23.3
--- NOTE | 2018-09-24 14:57 | HP.PTEVAL ---
Patient's Visit Information SUSAN SHARIF is a 43 year old M referred to Physical Therapy by Renetta Rosen MD with a diagnosis of Back pain. Date of Evaluation: 09/23/18 Physical Therapist: David Maloney DPT - Visit Plan Frequency: 2x /Week Duration: 4 Weeks Plan: Start with US to lumbar erector spinea, neutral spine core stability exercises, HS stretching, May use Ice or heat at well for symptom management. Progress prone lying proressing to prone on elbows if tolreated. - Subjective Findings: Pt. is here today for his initial evaluation with diagnosis of LBP. Pt. reports having increased pain for a number of years. He reports having some radiating pain into his R LE, but mostly in his lumbar spine on R side. Pt. reports having psoriatic arthritis as well. Pt. has had an MRI showing a moderate disc space narrowing at L5/S1 ~10 months ago. Pt. is disabled due to asthma condition, but was able to start working again recently until having an upper back injury, which ultimately he was laid off from his job. Pt. reprots increased pain with sustinated sitting, standing, lufting, bending, and twisting. Pt. denies N/T in either LE. Pt. is fiorella to sleep on his side, but does have icnreased pain waking him up. Pt. has been seeing pain mangeement with good relief from injections. Pt. reports having last injection ~4 months previously. Pt. is hopeful to reduce symptoms in order to get back to all recreational actvities without limitations. - Pain lumbar spine Pain Intensity (Out of 10): 5 Pain Intensity Range: 2, 8 - Objective POSTURE: Pt. has decreased lumbar lordosis and general slouched posture. Pt. has roudned shoulders with FH positioning. PALAPTION: Pt. ahs increased soreness along lumbar erector spine and increased pain with spring testing of L2-S1. Hypomobility noted throughout. NEURO: Normal throughout. ROM: Lumbar spine: flexion nil loss NE, ext min/mod loss increase NW, SB L min loss NE, SB R mod loss icnrease NW, rotation bilat min loss NE. Pt. has tight HS and hip flexors bilaterally. MMT: RLE- ankle- 5/5 throughout; knee- ext 5-/5, flexion 5-/5; hip- flexion 4/5 increase NW, abd 4/5 NE, ext 4/5 increase NW. LLE- ankle 5/5 throoughout; knee 5/5 throughout. hip- flexion 4+/5 increase NW, abd 4/5 NE, ext 4+/5 increase NW. Core strneght- fair-. GAIT: Pt. ambulates wtih generalized flexed posture. PT. has normal step length, but has icnreased postural sway and forward posture. STAIRS: PT. is able to negotiate without issues. - Special Tests L/S Slump test left side: Positive L/S Slump test right side: Negative L/S Left Straight Leg Raise: Negative L/S Right Straight Leg Raise: Negative L/S Left Femoral Nerve Tension: Positive L/S Right Femoral Nerve Tension: Positive Lumbar Standing: Flexion - Mechanical Response: No effect Lumbar Standing: Flexion - Symptoms During Testing: No effect Lumbar Standing: Flexion - Symptoms After Testing: No effect Lumbar Standing: Extension - Mechanical Response: No effect Lumbar Standing: Extension - Symptoms During Testing: Increases Lumbar Standing: Extension - Symptoms After Testing: No worse Lumbar Standing: Right Side Glides - Mechanical Response: No effect Lumbar Standing: Right Side [place] - Symptoms During Testing: No effect Lumbar Standing: Right Side [place] - Symptoms After Testing: No effect Lumbar Standing: Left Side [place] - Mechanical Response: No effect Lumbar Standing: Left Side [place] - Symptoms During Testing: No effect Lumbar Standing: Left Side [place] - Symptoms After Testing: No effect - Goals Goal 1:: Pt. to be I with HEP. Goal Time Frame: 4-6 Weeks Goal 2:: Pt. to have increased lumbar ROM by 25% in all directions without increase in symptoms. Goal Time Frame: 4-6 Weeks Goal 3:: Pt. to have increased Core strength by 1/2 grade to reduce stress applied to lumbar spine with all functional mobility. Goal Time Frame: 4-6 Weeks Goal 4:: Pt. to sleep throughout the night without increase in symptoms. Goal Time Frame: 4-6 Weeks Goal 5:: Pt. to ambulate unlimited distances with 0-2/10 pain in lumbar spine. Goal Time Frame: 4-6 Weeks - Rehabilitation Potential Physical Therapy Diagnosis: Pt. has signs and symptomc consistent wtih LBP. Pt. did not present with radiating symptoms this date, but report that he does have some. Pt. also did not present with a directional preference this date. He would benefit from PT to reduce symptoms, increase core strength and increase tolerance to all funtional mobility. Rehabilitation Potential: Fair - Anticipated Interventions Patient/Client Instruction: Educate patient on: Condition, Plan of Care, Risk Factors, Benefits of Fitness Program For the Purpose of:: To foster healthy habits, To improve decision making, To facilitate caregiver knowledge, To improve self management, To prevent re-injury, To improve ability to perform tasks related to life management Therapeutic Exercise to Include: Strength training, Power training, Body mechanics, Postural training, Flexibilty training, Passive ROM, Active ROM, Dynamic Lumbar Stabilization, Jessica Exercises For the Purpose of:: To decrease pain, To decrease swelling/inflammation, To increase ROM, To improve nutrient delivery to tissue, To increase oxygenation perfusion, To improve muscle performance and motor function, To improve health of tissue, To decrease soft tissue restriction, To increase flexibility/ROM Manual Therapy Techniques to Include: Mobilization, Functional dry needling, Soft tissue mobilization For the Purpose of:: To decrease pain, To decrease swelling/inflammation, To increase ROM, To improve nutrient delivery to tissue IF ES: Yes Cryotherapy (ice pack, ice massage): Yes Ultrasound (thermal/non thermal): Yes For the Purpose of:: To decrease pain, To decrease swelling/inflammation, To increase ROM Thank you for the opportunity to evaluate your patient. For Medicare and Medicare HMO plans, please review the plan of care and approve it. It will need to be FAXED BACK to us at [phone] for Medicare purposes. For Medicare only, by signing this I certify the plan of care. Please let me know if there are questions or concerns regarding this plan of care. Physician Signature: Date:
--- NOTE | 2018-12-30 15:57 | HP.PTDCNRP_ITS ---
HP - Discharge Summary (1) - Patient Information SUSAN SHARIF was seen in my office for initial evaluation on 09/23/18. The following Plan of Care was established for this patient: Initial Frequency: 2x /Week Initial Duration: 4 Weeks - Anticipated Interventions Patient/Client Instruction: Educate patient on: Condition, Plan of Care, Risk Factors, Benefits of Fitness Program For the Purpose of:: To foster healthy habits, To improve decision making, To facilitate caregiver knowledge, To improve self management, To prevent re- injury, To improve ability to perform tasks related to life management Therapeutic Exercise to Include: Strength training, Power training, Body mechanics, Postural training, Flexibilty training, Passive ROM, Active ROM, Dynamic Lumbar Stabilization, Jessica Exercises For the Purpose of:: To decrease pain, To decrease swelling/inflammation, To increase ROM, To improve nutrient delivery to tissue, To increase oxygenation perfusion, To improve muscle performance and motor function, To improve health of tissue, To decrease soft tissue restriction, To increase flexibility/ROM Manual Therapy Techniques to Include: Mobilization, Functional dry needling, Soft tissue mobilization For the Purpose of:: To decrease pain, To decrease swelling/inflammation, To increase ROM, To improve nutrient delivery to tissue IF ES: Yes Cryotherapy (ice pack, ice massage): Yes Ultrasound (thermal/non thermal): Yes For the Purpose of:: To decrease pain, To decrease swelling/inflammation, To increase ROM This patient was last seen in our office 10/09/18. Pertinent comments regarding their Physical therapy will appear below: Pt. was seen for his back pain. Pt. has not been seen in several months and will be DC from PT at this point in time. At this point I will be discontinuing this patient from physical therapy. I would be happy to see this patient again in the future if found appropriate by the physician. Thank you! David Maloney DPT
== END 2018-10-09 19:00 | disposition home or self-care (01) ==
LOC: PT 16:30
PROVIDERS: Family Provider Family Medicine; PCP Family Medicine; Referring Provider Anesthesiology Pain Medicine; Visit Provider Anesthesiology Pain Medicine
DX: M54.9 Dorsalgia, unspecified (principal)
CPT/HCPCS: 97035; 97110; 97161

== ENCOUNTER → 2019-01-20 12:39 | Outpatient (CLI) | payer MEDICARE, MEDICAID, SELFPAY ==
[2019-01-20 12:39] VITALS: BMI 21.9
--- NOTE | 2019-01-20 12:43 | RAD_ITS ---
STUDY: X-RAY - LUMBAR SPINE REASON FOR EXAM: Male, 43 years old. Low back pain TECHNIQUE: 4 view(s) of the lumbar spine were obtained. COMPARISON: Prior study of 09/02/2018 FINDINGS: There is straightening of the normal lumbar lordosis. There is no substantial scoliosis. There is a normal alignment of the vertebrae. There is multilevel endplate spondylosis of the lumbar vertebrae. There is multi-level degenerative disc disease with multi-level disc space narrowing. There is no demonstrated fracture. The soft tissue structures are unremarkable. RAD/L/S Spine Min 4 Views IMPRESSION: Degenerative changes of the spine, as detailed above. Findings are similar to the previous study. Electronically Signed: Curt Schaefer MD at 17:07 EDT , Service support ,
== END ==
PROVIDERS: Family Provider Family Medicine; PCP Family Medicine; Referring Provider Orthopaedic Surgery; Visit Provider Orthopaedic Surgery
DX: M54.5 Low back pain (principal)
CPT/HCPCS: 72110

== ENCOUNTER 2019-05-11 07:12 | Day surgery (SDC) | payer MEDICARE, MEDICAID, SELFPAY ==
[2019-01-20 12:39] VITALS: BMI 21.9
[2019-05-11] VITALS (7 sets, daily range): BP systolic 98–135; BP diastolic 67–79; PULSE 69–76; RESP 15–16; TEMP 36.7–37.1; O2SAT 95–98; BMI 20.2
[2019-05-11] MEDS: Lactated Ringers 1,000 ML 100 ML IV (07:51)
--- NOTE | 2019-05-11 08:31 | RAD_ITS ---
PROCEDURE: Lumbar facet joint block. DATE OF EXAMINATION: May 11, 2019. INDICATION: Male, 43 years old. Chronic low back pain. FLUOROSCOPY TIME (if supplied): (9.2 seconds) minutes/seconds. 4 images were obtained. Intraoperative imaging provided for L3-S1 facet block. RAD/L/S Spine Min 4 Views IMPRESSION: Intraoperative imaging provided for L3-S1 facet joint block. Electronically Signed: Sal Cole, at 10:17 EST , Service support ,
[2019-05-11] MEDS: Bupivacaine 0.25% 30 ML Vial (08:35)
[2019-05-11] MEDS: MethylPREDNISolone Acetate 80 MG/ML Vial (08:36)
--- NOTE | 2019-05-11 12:11 | PCM.OPRPT ---
Report of Operation Date of Procedure: 05/11/19 Description of Surgical Findings:: PREOPERATIVE DIAGNOSIS: Lumbosacral spondylosis, lumbosacral degenerative disc disease, lumbar facet arthropathy POSTOPERATIVE DIAGNOSIS: Lumbosacral spondylosis, lumbosacral disc disease, lumbar facet arthropathy PROCEDURE PERFORMED: Right-sided lumbar facet steroid injection, L3, L4, L5, and S1. ANESTHESIA: MAC. BLOOD LOSS: Minimal. COMPLICATIONS: None. DESCRIPTION OF PROCEDURE: History and physical of today was reviewed. Risks and benefits of the procedure were explained. The patient understood and agreed to proceed. Informed consent was obtained. IV inserted per routine protocol. The patient was taken to the operating room and placed in the prone position with a pillow positioned underneath the abdomen. The right side of her lower back was prepped and draped in a sterile fashion using iodine x3. Under fluoroscopy on oblique view, the L3 through S1 vertebral bodies were visualized. The skin and subcutaneous tissue was anesthetized with approximately 5 mL of 1% lidocaine using a 25-gauge regular needle. Under direct visualization with fluoroscopy, at approximately 25-degree angle starting on the right L3, ending on the right S1, passing through the L4 and L5, using a 22-gauge 3-1/2-inch spinal needle, the needle was advanced via the skin. The tip of the needle was maneuvered and directed towards the superior medial gutter of the transverse process at the vicinity of the medial branch. Once tip of the needle was in contact with the bone, the needle was pulled approximately 2 mm off the bone. After negative aspiration of blood or CSF and confirmation on AP as well as oblique view, a total of 8 mL of preservative-free 0.25% Marcaine with 80 mg of Depo-Medrol was injected in divided doses between those four levels. The needles were then removed intact. The patient experienced no sign or symptoms of intrathecal or intravascular injection. The patient experienced no paresthesia. The procedure was completed without any apparent difficulty or any complications. The patient appeared to tolerate it well. ASSESSMENT AND PLAN: This is a 43-year-old male with lumbosacral spondylosis, lumbosacral degenerative disc disease, lumbar facet arthropathy status post right-sided lumbar facet steroid injection L3-S1 patient will continue his current medications patient found approximately 2 weeks for reevaluation.
== END 2019-05-11 09:21 | disposition home or self-care (01) ==
LOC: SDC 07:13 → AC 07:14
PROVIDERS: Family Provider Family Medicine; PCP Family Medicine; Referring Provider Anesthesiology Pain Medicine; Visit Provider Anesthesiology Pain Medicine
PROC: 3E0T3BZ Introduction of Anesthetic Agent into Peripheral Nerves and Plexi, Percutaneous Approach (ICD-10-PCS; CPT 64493; principal; 2019-05-11 08:35)
DX: M47.817 Spondylosis without myelopathy or radiculopathy, lumbosacral region (principal); M51.37 Other intervertebral disc degeneration, lumbosacral region; M46.96 Unspecified inflammatory spondylopathy, lumbar region; M48.07 Spinal stenosis, lumbosacral region; J45.909 Unspecified asthma, uncomplicated; K21.9 Gastro-esophageal reflux disease without esophagitis; F41.9 Anxiety disorder, unspecified; F31.9 Bipolar disorder, unspecified; M81.0 Age-related osteoporosis without current pathological fracture; M19.90 Unspecified osteoarthritis, unspecified site; F17.210 Nicotine dependence, cigarettes, uncomplicated; Z79.891 Long term (current) use of opiate analgesic; Z79.899 Other long term (current) drug therapy
CPT/HCPCS: 64493; 64494; 64495; 64483; 72110; J7120

== ENCOUNTER 2019-06-15 07:48 | Day surgery (SDC) | payer MEDICARE, MEDICAID, SELFPAY ==
[2019-05-11 07:41] VITALS: BMI 20.2
[2019-06-15 08:10] VITALS: BP 104/75; PULSE 78; RESP 14; TEMP 36.9; O2SAT 94
[2019-06-15] MEDS: Lactated Ringers 1,000 ML 100 ML IV (08:23)
[2019-06-15] MEDS: Bupivacaine 0.25% 30 ML Vial (08:41)
[2019-06-15] MEDS: MethylPREDNISolone Acetate 80 MG/ML Vial (08:41)
[2019-06-15 08:50] VITALS: BP 104/75; BP 112/67; PULSE 73; RESP 16; TEMP 36.8; O2SAT 98
[2019-06-15 08:55] VITALS: BP 104/75; BP 112/67; PULSE 75; RESP 16; O2SAT 98
--- NOTE | 2019-06-15 08:55 | RAD_ITS ---
PROCEDURE: Right L3-S1 facet joint block. DATE OF EXAMINATION: June 15, 2019. INDICATION: Male, 43 years old. Chronic low back pain. FLUOROSCOPY TIME (if supplied): (14 seconds) minutes/seconds Intraoperative imaging provided for right L3-S1 facet joint block. RAD/L/S Spine Min 4 Views IMPRESSION: Intraoperative imaging provided for right L3-S1 facet joint block. Electronically Signed: Sal Cole, at 14:26 EST , Service support ,
[2019-06-15 09:00] VITALS: BP 104/75; BP 111/74; PULSE 75; RESP 16; O2SAT 95
[2019-06-15 09:05] VITALS: BP 104/75; BP 106/77; PULSE 76; RESP 16; O2SAT 97
--- NOTE | 2019-06-15 09:06 | PCM.OPRPT ---
Report of Operation Date of Procedure: 06/15/19 Description of Surgical Findings:: PREOPERATIVE DIAGNOSIS: Lumbosacral spondylosis, lumbosacral degenerative disc disease, lumbar facet arthropathy POSTOPERATIVE DIAGNOSIS: Lumbosacral spondylosis, lumbosacral degenerative disc disease, lumbar facet arthropathy PROCEDURE PERFORMED: Right-sided lumbar facet steroid injection, L3, L4, L5, and S1. ANESTHESIA: MAC. BLOOD LOSS: Minimal. COMPLICATIONS: None. DESCRIPTION OF PROCEDURE: History and physical of today was reviewed. Risks and benefits of the procedure were explained. The patient understood and agreed to proceed. Informed consent was obtained. IV inserted per routine protocol. The patient was taken to the operating room and placed in the prone position with a pillow positioned underneath the abdomen. The right side of her lower back was prepped and draped in a sterile fashion using iodine x3. Under fluoroscopy on oblique view, the L3 through S1 vertebral bodies were visualized. The skin and subcutaneous tissue was anesthetized with approximately 5 mL of 1% lidocaine using a 25-gauge regular needle. Under direct visualization with fluoroscopy, at approximately 25-degree angle starting on the right L3, ending on the right S1, passing through the L4 and L5, using a 22-gauge 3-1/2-inch spinal needle, the needle was advanced via the skin. The tip of the needle was maneuvered and directed towards the superior medial gutter of the transverse process at the vicinity of the medial branch. Once tip of the needle was in contact with the bone, the needle was pulled approximately 2 mm off the bone. After negative aspiration of blood or CSF and confirmation on AP as well as oblique view, a total of 8 mL of preservative-free 0.25% Marcaine with 80 mg of Depo-Medrol was injected in divided doses between those four levels. The needles were then removed intact. The patient experienced no sign or symptoms of intrathecal or intravascular injection. The patient experienced no paresthesia. The procedure was completed without any apparent difficulty or any complications. The patient appeared to tolerate it well. ASSESSMENT AND PLAN: This is a 43-year-old male with lumbosacral spondylosis, lumbosacral degenerative disc disease, lumbar facet arthropathy status post right-sided lumbar facet steroid injection L3-S1, patient will continue his current medications, patient will follow approximately 2 weeks for reevaluation.
[2019-06-15 09:24] VITALS: BP 104/75
== END 2019-06-15 09:33 | disposition home or self-care (01) ==
LOC: SDC 07:49 → AC 07:50
PROVIDERS: Family Provider Family Medicine; PCP Family Medicine; Referring Provider Anesthesiology Pain Medicine; Visit Provider Anesthesiology Pain Medicine
PROC: 3E0T3BZ Introduction of Anesthetic Agent into Peripheral Nerves and Plexi, Percutaneous Approach (ICD-10-PCS; CPT 64493; principal; 2019-06-15 08:50)
DX: M47.817 Spondylosis without myelopathy or radiculopathy, lumbosacral region (principal); M51.37 Other intervertebral disc degeneration, lumbosacral region; M81.0 Age-related osteoporosis without current pathological fracture; J45.909 Unspecified asthma, uncomplicated; K21.9 Gastro-esophageal reflux disease without esophagitis; F31.9 Bipolar disorder, unspecified; F41.9 Anxiety disorder, unspecified; F17.210 Nicotine dependence, cigarettes, uncomplicated; Z79.899 Other long term (current) drug therapy; Z79.891 Long term (current) use of opiate analgesic
CPT/HCPCS: 01992; 64493; 64494; 64495; 64483; 72110; J7120

== ENCOUNTER → 2019-10-05 09:09 | Outpatient (CLI) | payer MEDICARE, MEDICAID, SELFPAY ==
[2019-10-05 12:17] LABS: Erythrocyte Sedimentation Rate 12 mm/hr (0-15)
[2019-10-05 12:20] LABS: Absolute Neutrophil Count 2.8 X10^3/uL (2.0-7.7); Basophil# 0.13 X10^3/uL; Basophil% 1.8 % (0-1); Eosinophil# 1.05 X10^3/uL; Eosinophils% 14.8 % (0-5); Hematocrit 41.4 % (40-54); Lymphocyte % 31.1 % (19-41); Mean Corp Hgb Conc 33.8 g/dL (32-36); Mean Corpuscular Hgb 33.2 pg (27.0-32.0); Mean Corpuscular Volume 98.1 fL (80-94); Mean Platelet Vol. 10.2 fl (6.2-12.0); Monocyte% 12.7 % (0-10); NRBC Flagged by Analyzer 0 % (0-5); Neutrophil # 2.78 X10^3/uL (2.7-7.7); Neutrophil % 39.3 % (47-70); Platelet Count 330 K/mm3 (150-450); RBC Distribution Width CV 11.7 % (11.6-14.6); RBC Distribution Width SD 42.1 fl (35.1-43.9); Red Blood Count 4.22 M/mm3 (4.6-6.2); White Blood Count 7.1 K/mm3 (4.4-11.0)
[2019-10-05 12:33] LABS: Vitamin D,25 Hydroxy 22.5 ng/mL
[2019-10-05 12:42] LABS: AST(SGOT) 20 U/L (15-37); Alanine Aminotransfer ALT/SGPT 27 U/L (16-61); Albumin, Serum 3.5 g/dL (3.2-5.0); Alkaline Phosphatase 82 U/L (45-117); Anion Gap 6 (5-15); BUN 19 mg/dL (7-18); CRP 4.07 mg/L (0.0-3.0); Calcium,Total 8.4 mg/dL (8.5-10.1); Chloride 105 mmol/L (98-107); Creatinine, Serum 1.12 mg/dL (0.70-1.30); EST Glomerular Filtration Rate 75 mL/min (>60); Est Glom Filt Rate - Afr Amer 91 mL/min (>60); Globulin 3.5 g/dL (2.2-4.2); Glucose 89 mg/dL (74-106); Sodium Level 138 mmol/L (136-145); Thyroid Stim Hormone (TSH) 0.95 uIU/mL (0.358-3.74)
== END ==
PROVIDERS: PCP Family Medicine; Referring Provider Internal Medicine Rheumatology; Visit Provider Internal Medicine Rheumatology
DX: L40.50 Arthropathic psoriasis, unspecified (principal); D64.9 Anemia, unspecified; G56.23 Lesion of ulnar nerve, bilateral upper limbs; M50.30 Other cervical disc degeneration, unspecified cervical region; M51.36 Other intervertebral disc degeneration, lumbar region; M47.812 Spondylosis without myelopathy or radiculopathy, cervical region; M19.041 Primary osteoarthritis, right hand; M19.042 Primary osteoarthritis, left hand; M47.816 Spondylosis without myelopathy or radiculopathy, lumbar region; M41.9 Scoliosis, unspecified; L40.9 Psoriasis, unspecified; K58.9 Irritable bowel syndrome, unspecified; R63.4 Abnormal weight loss; E56.9 Vitamin deficiency, unspecified; Z87.2 Personal history of diseases of the skin and subcutaneous tissue; Z79.1 Long term (current) use of non-steroidal anti-inflammatories (NSAID); Z79.899 Other long term (current) drug therapy
CPT/HCPCS: 36415; 80053; 82306; 84443; 85025; 85652; 86140

== ENCOUNTER 2019-11-30 09:15 | Day surgery (SDC) | payer MEDICARE, MEDICAID, SELFPAY ==
[2019-11-30 09:49] VITALS: BP 131/89; PULSE 83; RESP 16; TEMP 37.1; O2SAT 97; BMI 20.6
[2019-11-30] MEDS: Lactated Ringers 1,000 ML 100 ML IV (10:00)
[2019-11-30] MEDS: Bupivacaine 0.25% 30 ML Vial (10:12)
[2019-11-30] MEDS: MethylPREDNISolone Acetate 80 MG/ML Vial (10:12)
[2019-11-30 10:20] VITALS: BP 131/89; BP 94/61; PULSE 78; RESP 16; TEMP 37.1; O2SAT 96
[2019-11-30 10:25] VITALS: BP 131/89; BP 93/79; PULSE 74; RESP 16; O2SAT 96
[2019-11-30 10:30] VITALS: BP 104/71; BP 131/89; PULSE 74; RESP 16; O2SAT 95
[2019-11-30 10:35] VITALS: BP 109/74; BP 131/89; PULSE 75; RESP 16; TEMP 36.8; O2SAT 96
--- NOTE | 2019-11-30 10:37 | OP.PCM_ITS ---
Report of Operation Date of Procedure: 11/30/19 Description of Surgical Findings:: PROCEDURE: Right-sided lumbar facet steroid injection L3, L4, L5, S1 PREOPERATIVE DIAGNOSIS: Lumbosacral spondylosis, lumbosacral degenerative disc disease and lumbar facet arthropathy POSTOPERATIVE DIAGNOSIS: Lumbosacral spondylosis, lumbosacral degenerative disc disease, and lumbar facet arthropathy ANESTHESIA: MAC COMPLICATIONS: None BLOOD LOSS: Minimal PROCEDURE IN DETAIL: History and physical today was reviewed. Risks and benefits of the procedure were explained. The patient understood, agreed to our procedure, and informed consent was obtained. IV inserted per routine protocol. The patient was taken to the operating room, placed in a prone position with a pillow positioned underneath the abdomen. The right side of his lower back was prepped and draped in a sterile fashion using iodine x3. Under fluoroscopy guidance, on AP view, L3 through S1 vertebral bodies were visualized. Skin and subcutaneous tissues were anesthetized with approximately 5 mL of 1% lidocaine using a 25-gauge regular needle. Under direct visualization with fluoroscopy at approximately 25-degree angle, starting on the right L3, ending on the right S1, passing through the L4-L5 using a 22-gauge 3 1/2-inch spinal needle, the needle was advanced via the skin. The tip of the needle was maneuvered and directed towards the superior and medial gutter of the transverse process at the vicinity of the medial branch. Once the tip of the needle was in contact with the bone, the needle pulled approximately 2 mm off the bone. After negative aspiration of blood with CSF and confirmation of AP as well as oblique view, a total of 8 mL of preservative-free 0.25% Marcaine with 80 mg of Depo- Medrol was injection in divided doses between those 4 levels. The needles were then removed intact. The patient experienced no signs or symptoms intrathecal, intravascular injection. The patient experienced no paraesthesia. The procedure was completed without any apparent difficult, any complication. The patient appeared to tolerate well. ASSESSMENT AND PLAN: This is a 44-year-old Male with lumbosacral spondylosis, lumbosacral degenerative disc disease, and lumbar facet arthropathy, status post right-sided lumbar facet steroid injection L3 through S1. The patient will continue this current medications. The patient will follow in approximately 2 weeks for reevaluation.
--- NOTE | 2019-11-30 10:40 | RAD_ITS ---
PROCEDURE: Lumbar facet intra-articular steroid injection. DATE OF EXAMINATION: November 30, 2019. INDICATION: Male, 44 years old. Chronic back pain. FLUOROSCOPY TIME (if supplied): (10 seconds) minutes/seconds. 4 coned down intraoperative views were obtained. Intraoperative imaging provided for right L3-S1 lumbar facet intra-articular injection. RAD/L/S Spine Min 4 Views IMPRESSION: Intraoperative imaging provided for right L3-S1 lumbar facet joint intra-articular steroid injection. Electronically Signed: Sal Cole, at 15:42 EDT , Service support ,
[2019-11-30 10:55] VITALS: BP 131/89
== END 2019-11-30 10:59 | disposition home or self-care (01) ==
LOC: SDC 09:16 → AC 09:17
PROVIDERS: PCP Family Medicine; Referring Provider Anesthesiology Pain Medicine; Visit Provider Anesthesiology Pain Medicine
PROC: 3E0T3BZ Introduction of Anesthetic Agent into Peripheral Nerves and Plexi, Percutaneous Approach (ICD-10-PCS; principal; 2019-11-30 10:35)
DX: M47.817 Spondylosis without myelopathy or radiculopathy, lumbosacral region (principal); M51.37 Other intervertebral disc degeneration, lumbosacral region; M46.96 Unspecified inflammatory spondylopathy, lumbar region; J45.909 Unspecified asthma, uncomplicated; M19.90 Unspecified osteoarthritis, unspecified site; F31.9 Bipolar disorder, unspecified; Z79.891 Long term (current) use of opiate analgesic; Z79.899 Other long term (current) drug therapy
CPT/HCPCS: 01992; 64493; 64494; 64495; 64483; 72110; J7120

== ENCOUNTER 2019-12-22 13:28 | Outpatient (RCR) | payer MEDICARE, MEDICAID, SELFPAY ==
[2019-12-22 15:50] LABS: Absolute Lymphocyte Count 1.59 X10^3/uL (0.83-4.51); Absolute Neutrophil Count 6.5 X10^3/uL (2.0-7.7); Basophil# 0.09 X10^3/uL; Basophil% 0.9 % (0-1); Eosinophil# 0.52 X10^3/uL; Eosinophils% 5.5 % (0-5); Hemoglobin 13.7 g/dL (13.0-16.5); Lymphocyte # 1.59 X10^3/ul (4.0); Lymphocyte % 16.8 % (19-41); Mean Corp Hgb Conc 32.6 g/dL (32-36); Mean Corpuscular Hgb 32.9 pg (27.0-32.0); Mean Corpuscular Volume 100.7 fL (80-94); Mean Platelet Vol. 10.5 fl (6.2-12.0); Monocyte# 0.74 X10^3/uL; Monocyte% 7.8 % (0-10); NRBC Flagged by Analyzer 0 % (0-5); Neutrophil # 6.51 X10^3/uL (2.7-7.7); Neutrophil % 68.6 % (47-70); Platelet Count 341 K/mm3 (150-450); RBC Distribution Width CV 12.2 % (11.6-14.6); RBC Distribution Width SD 45.7 fl (35.1-43.9); Red Blood Count 4.17 M/mm3 (4.6-6.2); White Blood Count 9.5 K/mm3 (4.4-11.0)
[2019-12-22 15:51] LABS: Erythrocyte Sedimentation Rate 18 mm/hr (0-15)
[2019-12-22 16:32] LABS: AST(SGOT) 11 U/L (15-37); Alanine Aminotransfer ALT/SGPT 21 U/L (16-61); CRP 4.38 mg/L (0.0-3.0); Creatinine, Serum 1.05 mg/dL (0.70-1.30); EST Glomerular Filtration Rate 81 mL/min (>60); Est Glom Filt Rate - Afr Amer 98 mL/min (>60)
[2019-12-25 15:31] LABS: Vitamin D 1,25-Dihydroxy 37.5 pg/mL (19.9-79.3)
== END 2019-12-22 18:00 | disposition home or self-care (01) ==
LOC: MTLAB 13:28
PROVIDERS: PCP Family Medicine; Referring Provider Internal Medicine Rheumatology; Visit Provider Internal Medicine Rheumatology
DX: L40.50 Arthropathic psoriasis, unspecified (principal); R79.82 Elevated C-reactive protein (CRP); G56.23 Lesion of ulnar nerve, bilateral upper limbs; M50.30 Other cervical disc degeneration, unspecified cervical region; M51.36 Other intervertebral disc degeneration, lumbar region; M47.812 Spondylosis without myelopathy or radiculopathy, cervical region; M19.041 Primary osteoarthritis, right hand; M19.042 Primary osteoarthritis, left hand; M47.816 Spondylosis without myelopathy or radiculopathy, lumbar region; M41.9 Scoliosis, unspecified; L40.9 Psoriasis, unspecified; Z87.2 Personal history of diseases of the skin and subcutaneous tissue; Z79.899 Other long term (current) drug therapy; Z79.1 Long term (current) use of non-steroidal anti-inflammatories (NSAID)
CPT/HCPCS: 36415; 82565; 82652; 84450; 84460; 85025; 85652; 86140

== ENCOUNTER 2019-12-28 07:26 | Day surgery (SDC) | payer MEDICARE, MEDICAID, SELFPAY ==
[2019-12-28] VITALS (7 sets, daily range): BP systolic 95–105; BP diastolic 64–74; PULSE 60–66; RESP 15–16; TEMP 36.4–36.8; O2SAT 99–100
[2019-12-28] MEDS: Lactated Ringers 1,000 ML 100 ML IV (07:50)
[2019-12-28] MEDS: MethylPREDNISolone Acetate 80 MG/ML Vial (08:30)
[2019-12-28] MEDS: Bupivacaine 0.25% 30 ML Vial (08:30)
--- NOTE | 2019-12-28 08:30 | RAD_ITS ---
PROCEDURE: Radiofrequency ablation of the right L3-S1 facet joints. DATE OF EXAMINATION: 12/28/2019. INDICATION: Male, 44 years old. Chronic back pain. FLUOROSCOPY TIME (if supplied): (21.9 seconds) minutes/seconds Intraoperative imaging provided for right L3-S1 radiofrequency ablation. RAD/L/S Spine Min 4 Views IMPRESSION: Intraoperative imaging provided for right L3-S1 radiofrequency ablation. Electronically Signed: Sal Cole, at 11:19 EDT , Service support ,
--- NOTE | 2019-12-28 11:33 | PCM.OPRPT ---
Report of Operation Date of Procedure: 12/28/19 Description of Surgical Findings:: PREOPERATIVE DIAGNOSIS: Lumbosacral spondylosis, lumbosacral degenerative disc disease, lumbar facet arthropathy POSTOPERATIVE DIAGNOSIS: Lumbosacral spondylosis, lumbosacral degenerative disc disease, lumbar facet arthropathy PROCEDURE PERFORMED: Right-sided radiofrequency ablation of the medial branch at L3, L4, L5, and S1. ANESTHESIA: MAC. BLOOD LOSS: Minimal. COMPLICATIONS: None. DESCRIPTION OF PROCEDURE: History and physical of today was reviewed. Risks and benefits of the procedure were explained. The patient understood and agreed to proceed. Informed consent was obtained. IV inserted per routine protocol. The patient was taken to the operating room and placed in the prone position with a pillow positioned underneath the abdomen. The right side of the lower back was prepped and draped in a sterile fashion using iodine x3. Under fluoroscopy guidance in an oblique view, the L3 through S1 vertebral bodies were visualized. The skin and subcutaneous tissue was anesthetized with approximately 10 mL of 1% lidocaine using a 25-gauge regular needle. Under direct visualization on fluoroscopy at approximately 25-degree angle, starting on the right L3, ending on the right S1, passing through the L4 and L5, using a 20-gauge 15-cm with a 10-mm curved active-tip radiofrequency ablation needle, the needle was passed through the skin. The tip of the needle was maneuvered and directed towards the superior medial gutter of the transverse process at the vicinity of the medial branch. Once the tip of the needle was in contact with the bone, the needle was pulled approximately 2 mm off the bone. The stylette of each needle was then removed. After negative aspiration of blood or CSF and confirmation on AP, oblique as well as lateral view, the radiofrequency ablation probe was then inserted at each level. Impedance was then recorded at L3 to be 239 ohm, at L4 to be 264 ohm, at L5 to be 282 ohm, and at S1 to be 224 ohm. Motor evoked potential was then initiated to 1.5 volt without any motor response at each corresponding level. The probe was then removed intact and a total of 6 mL of preservative-free 1% lidocaine was injected in divided doses between those four levels after negative aspiration of blood or CSF. The radiofrequency ablation probe was then reinserted. After confirmation on AP, oblique as well as lateral view, radiofrequency ablation was then initiated to 80 degree Celsius for 90 second at each level. Once concluded, the probe was then removed intact. A total of 6 mL of preservative-free 0.25% Marcaine with 40 mg of Depo-Medrol was injected in divided doses between those four levels. The needles were then removed intact. The patient experienced no sign or symptoms of intrathecal or intravascular injection. The patient experienced no paresthesia. The procedure was completed without any apparent difficulty or any complications. The patient appeared to tolerate it well. Sensory as well as motor exam was unchanged from prior to the procedure. ASSESSMENT AND PLAN: This is a 44-year-old male with lumbosacral spondylosis, lumbosacral degenerative disc disease, lumbar facet arthropathy status post right-sided lumbar radiofrequency ablation of the medial branch L3-S1 patient will continue his current medications patient will follow in approximately 2 weeks for reevaluation.
== END 2019-12-28 09:29 | disposition home or self-care (01) ==
LOC: SDC 07:26 → AC 07:28
PROVIDERS: PCP Family Medicine; Referring Provider Anesthesiology Pain Medicine; Visit Provider Anesthesiology Pain Medicine
PROC: (CPT 64635; principal; 2019-12-28 08:25)
DX: M47.27 Other spondylosis with radiculopathy, lumbosacral region (principal); M51.37 Other intervertebral disc degeneration, lumbosacral region; M46.96 Unspecified inflammatory spondylopathy, lumbar region; M48.07 Spinal stenosis, lumbosacral region; G89.29 Other chronic pain; J45.909 Unspecified asthma, uncomplicated; K21.9 Gastro-esophageal reflux disease without esophagitis; F31.9 Bipolar disorder, unspecified; F41.9 Anxiety disorder, unspecified; M19.90 Unspecified osteoarthritis, unspecified site; M81.0 Age-related osteoporosis without current pathological fracture; F17.210 Nicotine dependence, cigarettes, uncomplicated; Z79.891 Long term (current) use of opiate analgesic; Z79.899 Other long term (current) drug therapy
CPT/HCPCS: 01991; 64635; 64636 ×2; 72110; 76000; J7120

== ENCOUNTER → 2020-02-02 09:31 | Outpatient (CLI) | payer MEDICARE, MEDICAID, SELFPAY ==
--- NOTE | 2020-02-02 09:34 | RAD_ITS ---
STUDY: X-RAY - CERVICAL SPINE REASON FOR EXAM: Male, 44 years old. Neck pain TECHNIQUE: 5 view(s) of the cervical spine were obtained including oblique views. COMPARISON: None FINDINGS: Normal anterior atlantoaxial articulation. Normal odontoid process. Normal cervical lordosis. Moderate degree of disc space narrowing at the C3-C4 level with anterior spondylosis. Normal visualized intervertebral neuroforamina. The soft tissue structures are unremarkable. RAD/Cerv Spine 4 or 5 Views IMPRESSION: Moderate degree of disc space narrowing and spondylosis at the C3-C4 level. Electronically Signed: Sal Cole, at 12:25 EDT , Service support ,
== END ==
PROVIDERS: PCP Family Medicine; Referring Provider Nurse Practitioner Family; Visit Provider Nurse Practitioner Family
DX: M47.812 Spondylosis without myelopathy or radiculopathy, cervical region (principal); M48.02 Spinal stenosis, cervical region
CPT/HCPCS: 72050

== ENCOUNTER 2020-04-05 16:32 | Outpatient (RCR) | payer MEDICARE, MEDICAID, SELFPAY ==
--- NOTE | 2020-04-05 16:40 | RAD_ITS ---
HISTORY: right knee pain ADDITIONAL HISTORY: None provided. EXAMINATION/TECHNIQUE: XR Knee Complete 4 Views or More Right Number of images including paperwork: 4 COMPARISON: None FINDINGS: BONES: No acute fracture. Corticated ossific densities noted in the region of the tibial tuberosity. JOINTS: No subluxation. SOFT TISSUES: No distinct foreign body. Soft tissue swelling overlying the region of the tibial tuberosity. RAD/Knee 4 or More Views IMPRESSION: No acute osseous abnormality. Ossific density in the region of the tibial tuberosity with overlying soft tissue swelling, possibly unresolved Mason-Schlatter lesion. at 2312 Reported and signed by: Tamera Fontana MD Electronically Signed: Tamera Fontana MD at 23:12 EST Tel , Service support ,
[2020-04-05 18:04] LABS: Absolute Lymphocyte Count 1.97 X10^3/uL (0.83-4.51); Basophil# 0.12 X10^3/uL; Basophil% 0.9 % (0-1); Eosinophil# 0.78 X10^3/uL; Eosinophils% 5.8 % (0-5); Hematocrit 43.7 % (40-54); Hemoglobin 14.4 g/dL (13.0-16.5); Lymphocyte # 1.97 X10^3/ul (4.0); Lymphocyte % 14.7 % (19-41); Mean Corpuscular Hgb 32.4 pg (27.0-32.0); Mean Corpuscular Volume 98.2 fL (80-94); Mean Platelet Vol. 10.4 fl (6.2-12.0); Monocyte% 10.4 % (0-10); NRBC Flagged by Analyzer 0 % (0-5); Neutrophil # 8.97 X10^3/uL (2.7-7.7); Neutrophil % 66.9 % (47-70); Platelet Count 403 K/mm3 (150-450); RBC Distribution Width CV 11.5 % (11.6-14.6); RBC Distribution Width SD 41.8 fl (35.1-43.9); Red Blood Count 4.45 M/mm3 (4.6-6.2); White Blood Count 13.4 K/mm3 (4.4-11.0)
[2020-04-05 19:01] LABS: AST(SGOT) 16 U/L (15-37); Alanine Aminotransfer ALT/SGPT 25 U/L (16-61); Anion Gap 6 (5-15); BUN 9 mg/dL (7-18); BUN/Creat Ratio 8.2 RATIO (10-20); CRP < 2.90 mg/L (0.0-3.0); Calcium,Total 8.3 mg/dL (8.5-10.1); Chloride 102 mmol/L (98-107); EST Glomerular Filtration Rate 76 mL/min (>60); Est Glom Filt Rate - Afr Amer 92 mL/min (>60); Glucose 69 mg/dL (74-106); Potassium 3.9 mmol/L (3.5-5.1); Sodium Level 139 mmol/L (136-145); Thyroid Stim Hormone (TSH) 1.15 uIU/mL (0.358-3.74)
[2020-04-05 19:47] LABS: Erythrocyte Sedimentation Rate 11 mm/hr (0-15)
[2020-04-08 15:57] LABS: Vitamin D 1,25-Dihydroxy 34.1 pg/mL (19.9-79.3)
== END 2020-04-05 18:00 | disposition home or self-care (01) ==
LOC: MTLAB 16:32
PROVIDERS: PCP Family Medicine; Referring Provider Internal Medicine Rheumatology; Visit Provider Internal Medicine Rheumatology
DX: L40.50 Arthropathic psoriasis, unspecified (principal); G56.23 Lesion of ulnar nerve, bilateral upper limbs; M50.30 Other cervical disc degeneration, unspecified cervical region; M51.36 Other intervertebral disc degeneration, lumbar region; M47.812 Spondylosis without myelopathy or radiculopathy, cervical region; M19.041 Primary osteoarthritis, right hand; M19.042 Primary osteoarthritis, left hand; M47.816 Spondylosis without myelopathy or radiculopathy, lumbar region; M41.9 Scoliosis, unspecified; L40.9 Psoriasis, unspecified; R79.82 Elevated C-reactive protein (CRP); Z87.2 Personal history of diseases of the skin and subcutaneous tissue; Z79.1 Long term (current) use of non-steroidal anti-inflammatories (NSAID); Z79.899 Other long term (current) drug therapy
CPT/HCPCS: 36415; 73564; 80048; 82330; 82652; 84443; 84450; 84460; 85025; 85652; 86140

== ENCOUNTER 2020-04-11 08:34 | Day surgery (SDC) | payer MEDICARE, MEDICAID, SELFPAY ==
[2020-04-11 09:02] VITALS: BP 134/67; PULSE 74; RESP 16; TEMP 36.4; O2SAT 95; BMI 19.9
[2020-04-11] MEDS: Lactated Ringers 1,000 ML 100 ML IV (09:16)
[2020-04-11] MEDS: Bupivacaine 0.25% 30 ML Vial (09:40)
[2020-04-11] MEDS: MethylPREDNISolone Acetate 40 MG/ML Vial IM (09:40)
--- NOTE | 2020-04-11 09:42 | RAD_ITS ---
PROCEDURE: Cervical facet stored injection. DATE OF EXAMINATION: 04/11/2020. INDICATION: Male, 44 years old. Chronic neck pain. FLUOROSCOPY TIME (if supplied): (10.5 seconds) minutes/seconds. 4 images were obtained. Intraoperative imaging provided for right C4-C7 facet steroid injection. RAD/Cerv Spine 4 or 5 Views IMPRESSION: Intraoperative imaging provided for right-sided C4-C7 facet steroid injection. Electronically Signed: Sal Cole, at 8:29 EST , Service support ,
[2020-04-11 09:51] VITALS: BP 108/65; BP 134/67; PULSE 78; RESP 16; TEMP 36.8; O2SAT 98
[2020-04-11 09:55] VITALS: BP 117/74; BP 134/67; PULSE 72; RESP 16; O2SAT 97
[2020-04-11 10:00] VITALS: BP 104/75; BP 134/67; PULSE 67; RESP 16; O2SAT 95
[2020-04-11 10:11] VITALS: BP 106/74; BP 134/67; PULSE 67; RESP 16; TEMP 37.4; O2SAT 96
[2020-04-11 10:25] VITALS: BP 134/67
--- NOTE | 2020-04-15 09:51 | OP.PCM_ITS ---
Report of Operation Date of Procedure: 04/11/20 Description of Surgical Findings:: PREOPERATIVE DIAGNOSIS: CERVICAL SPONDYLOSIS, CERVICAL DEGENERATIVE DISC DISEASE, CERVICAL FACETS ARTHROPATHY POSTOPERATIVE DIAGNOSIS: CERVICAL SPONDYLOSIS, CERVICAL DEGENERATIVE DISC DISEASE, CERVICAL FACETS ARTHROPATHY PROCEDURE PERFORMED:RIGHT-sided cervical facet steroid injection, C4, C5, C6, and C7. ANESTHESIA: MAC. BLOOD LOSS: Minimal. COMPLICATIONS: None. DESCRIPTION OF PROCEDURE: History and physical of today was reviewed. Risks and benefits of the procedure were explained. The patient understood and agreed to proceed. Informed consent was obtained. IV inserted per routine protocol. The patient was taken to the operating room and placed in the prone position with a pillow positioned underneath the chest. The neck area was prepped and draped in a sterile fashion using iodine x3. Under fluoroscopy guidance on an AP view, the C4 through C7 vertebral bodies were visualized at approximately 10- degree angle, starting on the right C4, ending on the rightC7, passing through the C5 and C6. Using a 25-gauge 3-1/2-inch spinal needle, the needle was advanced via the skin. The tip of the needle was maneuvered and directed towards the epiphyseal junction of each corresponding vertebra. Once the tip of the needle was at the vicinity of the medial branch, the needle was pulled approximately 2 mm off the bone. After negative aspiration of blood or CSF and confirmation on AP, oblique as well as lateral view, a total of 4 mL of preservative-free 0.25% Marcaine with 80 mg of Depo-Medrol was injected in divided doses between those four levels. The needles were then removed intact. The patient experienced no sign or symptoms of intrathecal or intravascular injection. The patient experienced no paresthesia. The procedure was completed without any apparent difficulty or any complications. The patient appeared to tolerate it well. ASSESSMENT AND PLAN: This is a 44 Y/O Male with cervical spondylosis, cervical degenerative disc disease, and cervical facets arthropathy S/P right sided cervical facets steroid injection at C4-C7, pt will continue with his current medications, pt will follow up in 2 weeks for reevaluation.
== END 2020-04-11 10:39 | disposition home or self-care (01) ==
LOC: SDC 08:35 → AC 08:35
PROVIDERS: PCP Family Medicine; Referring Provider Anesthesiology Pain Medicine; Visit Provider Anesthesiology Pain Medicine
PROC: 3E0U3BZ Introduction of Anesthetic Agent into Joints, Percutaneous Approach (ICD-10-PCS; CPT 64490; principal; 2020-04-11 09:30)
DX: M47.22 Other spondylosis with radiculopathy, cervical region (principal); M50.10 Cervical disc disorder with radiculopathy, unspecified cervical region; M46.92 Unspecified inflammatory spondylopathy, cervical region; G89.29 Other chronic pain; J45.909 Unspecified asthma, uncomplicated; K21.9 Gastro-esophageal reflux disease without esophagitis; M81.0 Age-related osteoporosis without current pathological fracture; M19.90 Unspecified osteoarthritis, unspecified site; F31.9 Bipolar disorder, unspecified; F41.9 Anxiety disorder, unspecified; F17.210 Nicotine dependence, cigarettes, uncomplicated; Z79.891 Long term (current) use of opiate analgesic; Z79.899 Other long term (current) drug therapy
CPT/HCPCS: 01991; 64491; 64492; 64490; 72040; 72050; J7120

== ENCOUNTER → 2020-04-14 14:37 | Outpatient (CLI) | payer MEDICARE, MEDICAID, SELFPAY ==
[2020-04-11 09:02] VITALS: BMI 19.9
--- NOTE | 2020-04-14 14:41 | BD_ITS ---
STUDY: DUAL ENERGY X-RAY ABSORPTIOMETRY / DXA REASON FOR EXAM: Male, 44 years old. SMOKER -- USES PREDNISONE NEEDED -- HX OF TAKING FOSAMAX IN PAST -- DOES MODERATE AMOUNT OF EXERCISE -- FAMILY HX OF OSTEO- GRANDMA AND GRANDPA -- HX OF R FOOT FX, R ANKLE FX AND FINGER FX -- GISELA OF 0.75 INCH TECHNIQUE: Bone Mineral Density (BMD) measurements of lumbar spine and bilateral hips were obtained. COMPARISON: Comparison is made with prior study dated 10/23/2005. FINDINGS: Lumbar Spine (L1-L4): g/cm2 (0.968) / T-score (-2.1) / Z-score (-2.0) Findings are suggestive of osteopenia with a high fracture risk. Left Femur Total: g/cm2 (0.749) / T-score (-2.4) / Z-score (-2.2) Left Femoral Neck: g/cm2 (0.741) / T-score (-2.5) / Z-score (-2.0) Right Femur Total: g/cm2 (0.738) / T-score (-2.5) / Z-score (-2.2) Right Femoral Neck: g/cm2 (0.753) / T-score (-2.4) / Z-score (-1.9) The T-Scores on the most recent prior examination were: Lumbar Spine (L1-L4): There has been worsening of bone density since the previous examination. Left Femur Total: which represents a worsening of 10.9% . BD/Dexa Bone Density Study IMPRESSION: The patient is considered osteopenic as outlined below according to World Gabe Organization (WHO) criteria with a high fracture risk. There has been worsening of bone density since the previous examination. Reference Information: The T-score is the number of standard deviations above or below the standard which is normal for young adults at their peak bone mineral density. The World Health Organization (WHO) interprets the T-scores as follows: Above -1 Normal bone density Between -1 and -2.5 Osteopenia Equal to / or below -2.5 Osteoporosis As a practical clinical guideline, osteopenia may be graded as follows: Mild -1 through -1.5 Moderate -1.6 through -2.0 Severe -2.1 through -2.4 The Z-score is the number of standard deviations above or below age-matched controls. A Z-score of less than -1.5 would be considered abnormal. References: 1. NIH Osteoporosis and Related Bone Diseases www osteo.org 2. International Society for Clinical Densitometry www iscd.org 3. National Osteoporosis Foundation www nof.org Electronically Signed: Sal Cole, at 11:05 EST , Service support ,
== END ==
PROVIDERS: PCP Family Medicine; Referring Provider Family Medicine; Visit Provider Family Medicine
DX: M81.0 Age-related osteoporosis without current pathological fracture (principal)
CPT/HCPCS: 77080

== ENCOUNTER 2020-09-12 16:38 | Outpatient (RCR) | payer MEDICARE, MEDICAID, SELFPAY ==
[2020-09-12 17:57] LABS: Absolute Neutrophil Count 5.1 X10^3/uL (2.0-7.7); Basophil# 0.09 X10^3/uL; Eosinophil# 0.67 X10^3/uL; Eosinophils% 7.3 % (0-5); Hematocrit 43.6 % (40-54); Hemoglobin 14.1 g/dL (13.0-16.5); Lymphocyte % 27.2 % (19-41); Mean Corp Hgb Conc 32.3 g/dL (32-36); Mean Corpuscular Hgb 31.9 pg (27.0-32.0); Mean Corpuscular Volume 98.6 fL (80-94); Mean Platelet Vol. 10.5 fl (6.2-12.0); Monocyte% 8.7 % (0-10); NRBC Flagged by Analyzer 0 % (0-5); Neutrophil % 55.5 % (47-70); Platelet Count 337 K/mm3 (150-450); RBC Distribution Width CV 12.2 % (11.6-14.6); RBC Distribution Width SD 44.8 fl (35.1-43.9); Red Blood Count 4.42 M/mm3 (4.6-6.2); White Blood Count 9.2 K/mm3 (4.4-11.0)
[2020-09-12 18:12] LABS: Erythrocyte Sedimentation Rate 17 mm/hr (0-20)
[2020-09-12 18:30] LABS: AST(SGOT) 11 U/L (15-37); Alanine Aminotransfer ALT/SGPT 23 U/L (16-61); CRP 3.34 mg/L (0.0-3.0); Creatinine, Serum 1.05 mg/dL (0.70-1.30); EST Glomerular Filtration Rate 80 mL/min (>60); Est Glom Filt Rate - Afr Amer 97 mL/min (>60)
== END 2020-09-12 18:00 | disposition home or self-care (01) ==
LOC: MTLAB 16:38
PROVIDERS: PCP Family Medicine; Referring Provider Internal Medicine Rheumatology; Visit Provider Internal Medicine Rheumatology
DX: L40.50 Arthropathic psoriasis, unspecified (principal); G56.23 Lesion of ulnar nerve, bilateral upper limbs; M50.30 Other cervical disc degeneration, unspecified cervical region; M51.36 Other intervertebral disc degeneration, lumbar region; M47.812 Spondylosis without myelopathy or radiculopathy, cervical region; M19.041 Primary osteoarthritis, right hand; M19.042 Primary osteoarthritis, left hand; M47.816 Spondylosis without myelopathy or radiculopathy, lumbar region; M41.9 Scoliosis, unspecified; L40.9 Psoriasis, unspecified; R79.82 Elevated C-reactive protein (CRP); Z79.1 Long term (current) use of non-steroidal anti-inflammatories (NSAID); Z79.899 Other long term (current) drug therapy; Z87.2 Personal history of diseases of the skin and subcutaneous tissue
CPT/HCPCS: 36415; 82565; 82652; 84450; 84460; 85025; 85652; 86140

== ENCOUNTER 2020-10-10 07:04 | Day surgery (SDC) | payer MEDICARE, MEDICAID, SELFPAY ==
[2020-10-10 07:20] VITALS: BP 120/89; PULSE 69; RESP 16; TEMP 36.8; O2SAT 99
[2020-10-10] MEDS: Lactated Ringers 1,000 ML 100 ML IV (07:37)
--- NOTE | 2020-10-10 08:26 | RAD_ITS ---
INDICATION: RADIO FREQ ABLATION L3-S1,RIGHT EXAMINATION/TECHNIQUE: X-RAY - IR Unlisted Procedure, Spine COMPARISON: None. FINDINGS: Intraoperative imaging for radiofrequency ablation of right L3-S1. RAD/L/S Spine Min 4 Views IMPRESSION: Intraoperative imaging for radiofrequency ablation of right L3-S1. Electronically Signed: Hudson Whitehead MD at 17:26 EDT Tel , Service support ,
--- NOTE | 2020-10-10 08:28 | PCM.OPRPT ---
Report of Operation Date of Procedure: 10/10/20 Pre-Operative Diagnosis: Lumbosacral spondylosis, lumbosacral degenerative disc disease, lumbar facet arthropathy Post-Operative Diagnosis: Lumbosacral spondylosis, lumbosacral degenerative disc disease, lumbar facet arthropathy Surgery/Procedure Performed:: Right-sided lumbar radiofrequency ablation of the medial branch L3, L4, L5, S1 Type of Anesthesia: MAC Estimated Blood Loss (mL): Minimal Description of Procedure: History and physical today was reviewed. Risks and benefits of procedure explained. The patient understood, agreed to the procedure and informed consent was obtained. IV inserted per routine protocol. The patient was taken to the operating room, placed in the prone position with a pillow positioned underneath the abdomen. The right side of the lower back was prepped and draped in a sterile fashion using iodine x 3. Under fluoroscopy guidance, on an oblique view, the L3 through S1 vertebral bodies were visualized. The skin and subcutaneous tissue was anesthetized with approximately 10 mL of 1% lidocaine using a 25-gauge regular needle. Under direct visualization with fluoroscopy at approximately 25-degree angle, starting on the right L3, ending on the right S1 passing through the L4-L5 using a 20-gauge 15 cm with a 10 mm curved active tip radiofrequency ablation needle the needle passed through the skin. The tip of the needle was maneuvered and directed towards the superior and medial gutter of the transverse process at the vicinity of the medial branch. Once the tip of the needle was in contact with the bone, the needle pulled approximately 2 mm up the bone. The stylet of each needle was then removed. After negative aspiration of blood with CSF and confirmation of AP as well as oblique view, radiofrequency ablation probe was then inserted at each level. Impedance was then recorded at L3 to be 204, at L4 17, at L5 293, at S1 274 ohm. Motor-evoked potential was 2 then initiated to 1.5 volt without any motor response at each corresponding level. The probe was then removed intact and a total of 6 mL preservative-free 1% lidocaine was injected in divided doses between those 4 levels after negative aspiration of blood with CSF. The radiofrequency ablation probe was then reinserted after confirmation of AP, oblique as well as lateral view. Radiofrequency ablation was then initiated to 80 degrees Celsius for 90 seconds at each level. Once concluded, the probe was then removed intact and a total of 6 mL of preservative-free 0.25% Marcaine with 40 mg Depo-Medrol was injected in divided doses between those 4 levels. The needles were then removed intact. The patient experienced no signs or symptoms of intrathecal, intravascular injection. The patient experienced no paraesthesia. The procedure was completed without any apparent difficulty, any complication. The patient appeared to tolerate well. Sensory as well as motor exam was unchanged from prior to procedure. ASSESSMENT AND PLAN: This is a 45-year-old male with lumbosacral spondylosis, lumbosacral degenerative disc disease, lumbar facet arthropathy, status post right-sided radiofrequency ablation of the medial branch L3 through S1. The patient will continue his current medications. The patient will follow up in approximately 2 weeks for reevaluation. Complications None
[2020-10-10] MEDS: Bupivacaine 0.25% 30 ML Vial (08:42)
[2020-10-10] MEDS: MethylPREDNISolone Acetate 40 MG/ML Vial IM (08:42)
[2020-10-10] MEDS: Lidocaine 1% (30 ml sdv) 30 ML Vial (08:42)
[2020-10-10 08:56] VITALS: BP 120/89; BP 98/70; PULSE 68; RESP 16; TEMP 36.8; O2SAT 95
[2020-10-10 09:00] VITALS: BP 120/89; BP 89/63; PULSE 74; RESP 16; O2SAT 97
[2020-10-10 09:05] VITALS: BP 101/74; BP 120/89; PULSE 71; RESP 16; O2SAT 96
[2020-10-10 09:10] VITALS: BP 103/73; BP 120/89; PULSE 71; RESP 16; O2SAT 96
[2020-10-10 09:15] VITALS: BP 100/76; BP 120/89; PULSE 71; RESP 16; TEMP 36.7; O2SAT 99
== END 2020-10-10 09:36 | disposition home or self-care (01) ==
LOC: SDC 07:05 → AC 07:06
PROVIDERS: PCP Family Medicine; Referring Provider Anesthesiology Pain Medicine; Visit Provider Anesthesiology Pain Medicine
PROC: (CPT 64635; principal; 2020-10-10 08:35)
DX: M47.817 Spondylosis without myelopathy or radiculopathy, lumbosacral region (principal); M51.37 Other intervertebral disc degeneration, lumbosacral region; M46.96 Unspecified inflammatory spondylopathy, lumbar region; F41.0 Panic disorder [episodic paroxysmal anxiety]; F31.9 Bipolar disorder, unspecified; M81.0 Age-related osteoporosis without current pathological fracture; M19.90 Unspecified osteoarthritis, unspecified site; F17.210 Nicotine dependence, cigarettes, uncomplicated; Z79.891 Long term (current) use of opiate analgesic; Z79.899 Other long term (current) drug therapy
CPT/HCPCS: 64635; 64636 ×2; 72110; 76000; J7120

== ENCOUNTER → 2020-10-11 12:42 | Outpatient (CLI) | payer MEDICARE, MEDICAID, SELFPAY ==
--- NOTE | 2020-10-11 12:45 | RAD_ITS ---
STUDY: X-RAY - LUMBAR SPINE REASON FOR EXAM: Male, 45 years old. FOOT DROP TECHNIQUE: 5 view(s) of the lumbar spine were obtained. COMPARISON: None FINDINGS: There is straightening of the normal lumbar lordosis. There is no substantial scoliosis. There is a normal alignment of the vertebrae. There is multilevel endplate spondylosis of the lumbar vertebrae. There is multi-level degenerative disc disease with multi-level disc space narrowing. There is no demonstrated fracture. There is atherosclerotic calcification of the abdominal aorta without a demonstrated aneurysm. RAD/L/S Spine Min 4 Views IMPRESSION: Degenerative changes of the spine, as detailed above. Electronically Signed: Fred Ko MD at 12:59 EDT , Service support ,
== END ==
PROVIDERS: PCP Family Medicine; Referring Provider Family Medicine; Visit Provider Family Medicine
DX: M21.371 Foot drop, right foot (principal); M47.816 Spondylosis without myelopathy or radiculopathy, lumbar region; M51.36 Other intervertebral disc degeneration, lumbar region; M48.061 Spinal stenosis, lumbar region without neurogenic claudication
CPT/HCPCS: 72110

== ENCOUNTER → 2020-11-15 12:31 | Outpatient (CLI) | payer MEDICARE, MEDICAID, SELFPAY ==
--- NOTE | 2020-11-15 12:37 | MRI_ITS ---
STUDY: MRI LUMBAR SPINE WITHOUT CONTRAST REASON FOR EXAM: Male, 45 years old. RIGHT FOOT DROP TECHNIQUE: Standardized fat and water weighted pulse sequences were obtained in the sagittal and axial planes. COMPARISON: 10/11/2020 FINDINGS: T12-L1: Normal endplates. Normal disc height, hydration and morphology. Normal bilateral facet joints. Normal central canal and bilateral lateral recesses. Normal bilateral intervertebral neural foramina. Normal lumbar lordosis. There is no substantial scoliosis. Normal conus medullaris that terminates at the L1 level. L1-2: Endplate spondylosis. Decreased disc height and small circumferential disc bulge. Degenerative changes of the bilateral facet joints. Mild narrowing of the central canal and bilateral intervertebral neural foramina. L2-3: Endplate spondylosis. Decreased disc height and small circumferential disc bulge. Degenerative changes of the bilateral facet joints. Mild narrowing of the central canal and bilateral intervertebral neural foramina. L3-4: Endplate spondylosis. Decreased disc height and small circumferential disc bulge. Degenerative changes of the bilateral facet joints. Mild narrowing of the central canal and bilateral intervertebral neural foramina. L4-5: Endplate spondylosis. Decreased disc height and small circumferential disc bulge. Degenerative changes of the bilateral facet joints. Mild narrowing of the central canal and bilateral intervertebral neural foramina. There is left foraminal narrowing extraforaminal disc herniation impinging on the left L4 nerve root. L5-S1: Endplate spondylosis. Decreased disc height and moderate circumferential disc bulge. Degenerative changes of the bilateral facet joints. Mild narrowing of the central canal and moderate to severe bilateral intervertebral neural foramina. There is left foraminal narrowing extraforaminal disc herniation impinging on the left L5 nerve root. Normal visualized sacral ala. Normal visualized paraspinous soft tissue structures. MRI/Spine Lumbar (Routine) IMPRESSION: Multilevel degenerative changes, as described above. Left foramina and extraforaminal disc herniations at L4-5 and L5-S1. Moderate to severe narrowing of neuroforamina bilaterally at L5-S1. Electronically Signed: Neri Mckinney MD at 3:48 EDT Tel , Service support ,
== END ==
PROVIDERS: PCP Family Medicine; Referring Provider Family Medicine; Visit Provider Family Medicine
DX: M21.371 Foot drop, right foot (principal)
CPT/HCPCS: 72148

== ENCOUNTER 2020-12-23 11:39 | Outpatient (RCR) | payer MEDICARE, MEDICAID, SELFPAY ==
[2020-12-23 15:06] LABS: Erythrocyte Sedimentation Rate 22 mm/hr (0-20)
[2020-12-23 15:08] LABS: Absolute Lymphocyte Count 1.71 X10^3/uL (0.83-4.51); Basophil# 0.09 X10^3/uL; Basophil% 0.7 % (0-1); Eosinophil# 0.68 X10^3/uL; Eosinophils% 5.1 % (0-5); Hemoglobin 13.8 g/dL (13.0-16.5); Lymphocyte # 1.71 X10^3/ul (0.83-4.51); Lymphocyte % 12.8 % (19-41); Mean Corp Hgb Conc 32.9 g/dL (32-36); Mean Corpuscular Hgb 32.6 pg (27.0-32.0); Mean Corpuscular Volume 99.3 fL (80-94); Mean Platelet Vol. 10.8 fl (6.2-12.0); Monocyte# 0.83 X10^3/uL; Monocyte% 6.2 % (0-10); NRBC Flagged by Analyzer 0 % (0-5); Neutrophil # 10.01 X10^3/uL (2.7-7.7); Neutrophil % 74.8 % (47-70); Platelet Count 343 K/mm3 (150-450); RBC Distribution Width CV 13.1 % (11.6-14.6); RBC Distribution Width SD 47.5 fl (35.1-43.9); Red Blood Count 4.23 M/mm3 (4.6-6.2); White Blood Count 13.4 K/mm3 (4.4-11.0)
[2020-12-23 15:16] LABS: AST(SGOT) 22 U/L (15-37); Alanine Aminotransfer ALT/SGPT 27 U/L (16-61); CRP 7.75 mg/L (0.0-3.0); Creatinine, Serum 1.04 mg/dL (0.70-1.30); EST Glomerular Filtration Rate 81 mL/min (>60); Est Glom Filt Rate - Afr Amer 98 mL/min (>60)
[2020-12-27 14:16] LABS: Vitamin D 1,25-Dihydroxy 26.3 pg/mL (19.9-79.3)
== END 2020-12-23 18:00 | disposition home or self-care (01) ==
LOC: MTLAB 11:39
PROVIDERS: PCP Family Medicine; Referring Provider Internal Medicine Rheumatology; Visit Provider Internal Medicine Rheumatology
DX: L40.50 Arthropathic psoriasis, unspecified (principal); G56.23 Lesion of ulnar nerve, bilateral upper limbs; M50.30 Other cervical disc degeneration, unspecified cervical region; M51.36 Other intervertebral disc degeneration, lumbar region; M47.812 Spondylosis without myelopathy or radiculopathy, cervical region; M19.041 Primary osteoarthritis, right hand; M19.042 Primary osteoarthritis, left hand; M47.816 Spondylosis without myelopathy or radiculopathy, lumbar region; M41.9 Scoliosis, unspecified; L40.9 Psoriasis, unspecified; R79.82 Elevated C-reactive protein (CRP); Z79.1 Long term (current) use of non-steroidal anti-inflammatories (NSAID); Z79.899 Other long term (current) drug therapy; Z87.2 Personal history of diseases of the skin and subcutaneous tissue
CPT/HCPCS: 36415; 82565; 82652; 84450; 84460; 85025; 85652; 86140

== ENCOUNTER → 2021-01-09 09:33 | Outpatient (CLI) | payer MEDICARE, MEDICAID, SELFPAY ==
--- NOTE | 2021-01-09 09:37 | RAD_ITS ---
STUDY: X-RAY CHEST REASON FOR EXAM: Male, 45 years old. SOB,WEIGHT LOSS TECHNIQUE: PA and lateral views of the chest. COMPARISON: Comparison is made with prior study of 07/01/2018. FINDINGS: Hyperinflation. Decreased bilateral bronchovascular markings suggestive of emphysematous changes and/or bullous formation. There is no demonstrated pleural abnormality. Normal size heart. Normal mediastinum and paola. Normal visualized pulmonary arteries. Normal visualized aortic arch and descending thoracic aorta. Normal visualized thoracic spine. Normal visualized ribs, clavicles, and shoulders. There is no demonstrated abnormality of the visualized soft tissue structures of the upper abdomen. RAD/Chest PA and Lateral IMPRESSION: Hyperinflation. Decreased bronchovascular markings in both lungs suggestive of emphysematous changes or possible bullous formation. Electronically Signed: Sal Cole MD at 15:45 EDT , Service support ,
== END ==
PROVIDERS: PCP Family Medicine; Referring Provider Anesthesiology Pain Medicine; Visit Provider Anesthesiology Pain Medicine
DX: R06.02 Shortness of breath (principal); R63.4 Abnormal weight loss
CPT/HCPCS: 71046

== ENCOUNTER 2021-02-06 14:53 | Outpatient (RCR) | payer MEDICARE, MEDICAID, SELFPAY ==
[2021-02-06 18:11] LABS: Absolute Lymphocyte Count 1.53 X10^3/uL (0.83-4.51); Absolute Neutrophil Count 8.4 X10^3/uL (2.0-7.7); Basophil# 0.09 X10^3/uL; Basophil% 0.8 % (0-1); Eosinophil# 0.57 X10^3/uL; Eosinophils% 4.9 % (0-5); Erythrocyte Sedimentation Rate 6 mm/hr (0-20); Hematocrit 43.1 % (40-54); Hemoglobin 14.1 g/dL (13.0-16.5); Lymphocyte # 1.53 X10^3/ul (0.83-4.51); Lymphocyte % 13.1 % (19-41); Mean Corp Hgb Conc 32.7 g/dL (32-36); Mean Corpuscular Volume 100.9 fL (80-94); Mean Platelet Vol. 10.1 fl (6.2-12.0); Monocyte% 8.6 % (0-10); NRBC Flagged by Analyzer 0 % (0-5); Neutrophil # 8.44 X10^3/uL (2.7-7.7); Neutrophil % 72.2 % (47-70); Platelet Count 336 K/mm3 (150-450); RBC Distribution Width CV 15.9 % (11.6-14.6); RBC Distribution Width SD 58.4 fl (35.1-43.9); Red Blood Count 4.27 M/mm3 (4.6-6.2); White Blood Count 11.7 K/mm3 (4.4-11.0)
[2021-02-06 18:30] LABS: AST(SGOT) 16 U/L (15-37); Alanine Aminotransfer ALT/SGPT 25 U/L (16-61); CRP < 2.90 mg/L (0.0-3.0); Creatinine, Serum 1.19 mg/dL (0.70-1.30); EST Glomerular Filtration Rate 70 mL/min (>60); Est Glom Filt Rate - Afr Amer 84 mL/min (>60)
[2021-02-09 21:08] LABS: Vitamin D 1,25-Dihydroxy 33.7 pg/mL (19.9-79.3)
== END 2021-02-06 18:00 | disposition home or self-care (01) ==
LOC: MTLAB 14:53
PROVIDERS: PCP Family Medicine; Referring Provider Internal Medicine Rheumatology; Visit Provider Internal Medicine Rheumatology
DX: L40.50 Arthropathic psoriasis, unspecified (principal); G56.23 Lesion of ulnar nerve, bilateral upper limbs; M50.30 Other cervical disc degeneration, unspecified cervical region; M51.36 Other intervertebral disc degeneration, lumbar region; M47.812 Spondylosis without myelopathy or radiculopathy, cervical region; M19.041 Primary osteoarthritis, right hand; M19.042 Primary osteoarthritis, left hand; M47.816 Spondylosis without myelopathy or radiculopathy, lumbar region; M41.9 Scoliosis, unspecified; L40.9 Psoriasis, unspecified; R79.82 Elevated C-reactive protein (CRP); Z79.1 Long term (current) use of non-steroidal anti-inflammatories (NSAID); Z79.899 Other long term (current) drug therapy; Z87.2 Personal history of diseases of the skin and subcutaneous tissue
CPT/HCPCS: 36415; 82565; 82652; 84450; 84460; 85025; 85652; 86140

== ENCOUNTER 2021-04-17 12:03 | Outpatient (RCR) | payer MEDICARE, MEDICAID, SELFPAY ==
[2021-04-17 15:18] LABS: Absolute Neutrophil Count 6.5 X10^3/uL (2.0-7.7); Basophil% 0.9 % (0-1); Eosinophil# 1.19 X10^3/uL; Eosinophils% 10.6 % (0-5); Hematocrit 40.5 % (40-54); Hemoglobin 13.5 g/dL (13.0-16.5); Lymphocyte % 17.9 % (19-41); Mean Corp Hgb Conc 33.3 g/dL (32-36); Mean Corpuscular Hgb 33.9 pg (27.0-32.0); Mean Corpuscular Volume 101.8 fL (80-94); Mean Platelet Vol. 10.5 fl (6.2-12.0); Monocyte# 1.32 X10^3/uL; Monocyte% 11.8 % (0-10); NRBC Flagged by Analyzer 0 % (0-5); Neutrophil # 6.53 X10^3/uL (2.7-7.7); Neutrophil % 58.3 % (47-70); Platelet Count 335 K/mm3 (150-450); RBC Distribution Width CV 13.3 % (11.6-14.6); RBC Distribution Width SD 50.1 fl (35.1-43.9); Red Blood Count 3.98 M/mm3 (4.6-6.2); White Blood Count 11.2 K/mm3 (4.4-11.0)
[2021-04-17 15:37] LABS: AST(SGOT) 15 U/L (15-37); Alanine Aminotransfer ALT/SGPT 26 U/L (16-61); CRP 6.81 mg/L (0.0-3.0); Creatinine, Serum 1.06 mg/dL (0.70-1.30); EST Glomerular Filtration Rate 79 mL/min (>60); Est Glom Filt Rate - Afr Amer 96 mL/min (>60)
[2021-04-17 15:42] LABS: Erythrocyte Sedimentation Rate 25 mm/hr (0-20)
== END 2021-04-25 18:00 | disposition home or self-care (01) ==
LOC: MTLAB 12:03
PROVIDERS: PCP Family Medicine; Referring Provider Internal Medicine Rheumatology; Visit Provider Internal Medicine Rheumatology
DX: L40.50 Arthropathic psoriasis, unspecified (principal); G56.23 Lesion of ulnar nerve, bilateral upper limbs; M50.30 Other cervical disc degeneration, unspecified cervical region; M51.36 Other intervertebral disc degeneration, lumbar region; M47.812 Spondylosis without myelopathy or radiculopathy, cervical region; M19.041 Primary osteoarthritis, right hand; M19.042 Primary osteoarthritis, left hand; M47.816 Spondylosis without myelopathy or radiculopathy, lumbar region; M41.9 Scoliosis, unspecified; L40.9 Psoriasis, unspecified; R79.82 Elevated C-reactive protein (CRP); Z79.1 Long term (current) use of non-steroidal anti-inflammatories (NSAID); Z79.899 Other long term (current) drug therapy; Z87.2 Personal history of diseases of the skin and subcutaneous tissue
CPT/HCPCS: 36415; 82565; 84450; 84460; 85025; 85652; 86140

== ENCOUNTER 2021-06-02 10:38 | Outpatient (RCR) | payer MEDICARE, MEDICAID, SELFPAY ==
[2021-06-02 12:33] LABS: PTHIN 43.4 pg/mL (18.4-80.1)
[2021-06-02 12:47] LABS: Erythrocyte Sedimentation Rate 45 mm/hr (0-20)
[2021-06-02 12:50] LABS: Hematocrit 41.6 % (40-54); Hemoglobin 13.9 g/dL (13.0-16.5); Mean Corp Hgb Conc 33.4 g/dL (32-36); Mean Corpuscular Hgb 33.3 pg (27.0-32.0); Mean Corpuscular Volume 99.5 fL (80-94); POSITIVE DIFFERENTIAL YES; Platelet Count 401 K/mm3 (150-450); RBC Distribution Width CV 13.4 % (11.6-14.6); RBC Distribution Width SD 49.3 fl (35.1-43.9); Red Blood Count 4.18 M/mm3 (4.6-6.2); White Blood Count 16.2 K/mm3 (4.4-11.0)
[2021-06-02 12:51] LABS: Scan Indicated on CBC? Y/N NO
[2021-06-02 13:17] LABS: AST(SGOT) 14 U/L (15-37); Alanine Aminotransfer ALT/SGPT 21 U/L (16-61); Creatinine, Serum 1.11 mg/dL (0.70-1.30); EST Glomerular Filtration Rate 75 mL/min (>60); Est Glom Filt Rate - Afr Amer 91 mL/min (>60)
[2021-06-02 13:17] LABS: ALB/GLOB Ratio 0.7 RATIO (0.9-2.4); AST(SGOT) 12 U/L (15-37); Alanine Aminotransfer ALT/SGPT 20 U/L (16-61); Albumin, Serum 3.2 g/dL (3.2-5.0); Alkaline Phosphatase 66 U/L (45-117); Anion Gap 5 (5-15); BUN 12 mg/dL (7-18); Calcium,Total 8.2 mg/dL (8.5-10.1); Chloride 106 mmol/L (98-107); Cholesterol 185 mg/dL (200); Creatinine, Serum 1.09 mg/dL (0.70-1.30); EST Glomerular Filtration Rate 77 mL/min (>60); Est Glom Filt Rate - Afr Amer 93 mL/min (>60); Globulin 4.7 g/dL (2.2-4.2); Glucose 97 mg/dL (74-106); High Density Lipoprotein 36 mg/dL; Magnesium 2.2 mg/dL (1.6-2.6); Phosphorus 3.1 mg/dL (2.5-4.9); Potassium 4.2 mmol/L (3.5-5.1); Protein, Total 7.9 g/dL (6.4-8.2); Sodium Level 139 mmol/L (136-145); Thyroid Stim Hormone (TSH) 1.37 uIU/mL (0.358-3.74); Triglycerides 85 mg/dL; Very Low Density Lipoprotein 17 mg/dL (5-40)
[2021-06-02 14:53] LABS: Vitamin D,25 Hydroxy 14.3 ng/mL
== END 2021-06-26 18:00 | disposition home or self-care (01) ==
LOC: MTLAB 10:38
PROVIDERS: PCP Family Medicine; Referring Provider Internal Medicine Rheumatology; Visit Provider Internal Medicine Rheumatology
DX: L40.50 Arthropathic psoriasis, unspecified (principal); G56.23 Lesion of ulnar nerve, bilateral upper limbs; M41.9 Scoliosis, unspecified; M47.816 Spondylosis without myelopathy or radiculopathy, lumbar region; M19.041 Primary osteoarthritis, right hand; M19.042 Primary osteoarthritis, left hand; M47.812 Spondylosis without myelopathy or radiculopathy, cervical region; M51.36 Other intervertebral disc degeneration, lumbar region; M50.30 Other cervical disc degeneration, unspecified cervical region; Z79.899 Other long term (current) drug therapy; Z79.1 Long term (current) use of non-steroidal anti-inflammatories (NSAID); Z87.2 Personal history of diseases of the skin and subcutaneous tissue
CPT/HCPCS: 36415; 80053; 80061; 82306; 82330; 82565; 83735; 83970; 84100; 84443; 84450; 84460; 85027; 85652; 86140

== ENCOUNTER 2021-08-09 15:20 | Outpatient (RCR) | payer MEDICARE, MEDICAID, SELFPAY ==
[2021-08-09 17:54] LABS: Absolute Lymphocyte Count 0.91 X10^3/uL (0.83-4.51); Absolute Neutrophil Count 8.5 X10^3/uL (2.0-7.7); Basophil# 0.08 X10^3/uL; Basophil% 0.8 % (0-1); Eosinophil# 0.06 X10^3/uL; Eosinophils% 0.6 % (0-5); Hematocrit 36.5 % (40-54); Hemoglobin 12.7 g/dL (13.0-16.5); Lymphocyte # 0.91 X10^3/ul (0.83-4.51); Mean Corp Hgb Conc 34.8 g/dL (32-36); Mean Corpuscular Hgb 35.5 pg (27.0-32.0); Mean Platelet Vol. 9.9 fl (6.2-12.0); Monocyte# 0.57 X10^3/uL; Monocyte% 5.6 % (0-10); NRBC Flagged by Analyzer 0 % (0-5); Neutrophil # 8.49 X10^3/uL (2.7-7.7); Neutrophil % 83.6 % (47-70); Platelet Count 381 K/mm3 (150-450); RBC Distribution Width CV 13.9 % (11.6-14.6); RBC Distribution Width SD 50.7 fl (35.1-43.9); Red Blood Count 3.58 M/mm3 (4.6-6.2); White Blood Count 10.2 K/mm3 (4.4-11.0)
[2021-08-09 18:15] LABS: AST(SGOT) 9 U/L (15-37); Alanine Aminotransfer ALT/SGPT 16 U/L (16-61); Creatinine, Serum 0.95 mg/dL (0.70-1.30); EST Glomerular Filtration Rate 90 mL/min (>60); Est Glom Filt Rate - Afr Amer 109 mL/min (>60)
[2021-08-09 18:30] LABS: Erythrocyte Sedimentation Rate 62 mm/hr (0-20)
== END 2021-08-24 18:00 | disposition home or self-care (01) ==
LOC: MTLAB 15:20
PROVIDERS: PCP Family Medicine; Referring Provider Internal Medicine Rheumatology; Visit Provider Internal Medicine Rheumatology
DX: L40.50 Arthropathic psoriasis, unspecified (principal); Z79.899 Other long term (current) drug therapy; Z79.1 Long term (current) use of non-steroidal anti-inflammatories (NSAID); G56.23 Lesion of ulnar nerve, bilateral upper limbs; M41.9 Scoliosis, unspecified; M47.816 Spondylosis without myelopathy or radiculopathy, lumbar region; M19.041 Primary osteoarthritis, right hand; M19.042 Primary osteoarthritis, left hand; M47.812 Spondylosis without myelopathy or radiculopathy, cervical region; M51.36 Other intervertebral disc degeneration, lumbar region; M50.30 Other cervical disc degeneration, unspecified cervical region
CPT/HCPCS: 36415; 82565; 84450; 84460; 85025; 85652; 86140

== ENCOUNTER 2021-08-29 11:54 | Emergency (ER) | payer MEDICARE, MEDICAID, SELFPAY ==
[2021-08-29 11:56] VITALS: BP 150/98; PULSE 124; RESP 24; TEMP 36.7; O2SAT 93; BMI 18.6
[2021-08-29 12:07] VITALS: O2SAT 94
--- NOTE | 2021-08-29 12:28 | EKG12_ITS ---
Test Reason : Blood Pressure : / mmHG Vent. Rate : 100 BPM Atrial Rate : 100 BPM P-R Int : 146 ms QRS Dur : 092 ms QT Int : 368 ms P-R-T Axes : 084 087 073 degrees QTc Int : 474 ms Normal sinus rhythm Normal ECG Confirmed by NAUN BATRES MD ([id number]), society editor ALVIN ALLEN ([id number]) on 08/30/2021 2:08:49 PM Referred By: ARINA Confirmed By:NAUN BATRES MD
--- NOTE | 2021-08-29 12:28 | RAD_ITS ---
STUDY: X-RAY CHEST REASON FOR EXAM: Male, 46 years old. Dyspnea TECHNIQUE: Single frontal view of the chest. COMPARISON: 01/09/21. FINDINGS: The lungs are clear and expanded. There is no demonstrated pleural abnormality. Normal size heart. Normal mediastinum and paola. Normal visualized pulmonary arteries. Normal visualized aortic arch and descending thoracic aorta. Normal visualized thoracic spine. Normal visualized ribs, clavicles, and shoulders. There is no demonstrated abnormality of the visualized soft tissue structures of the upper abdomen. RAD/Chest 1 View (Portable) IMPRESSION: Normal x-ray examination of the chest. Electronically Signed: Syed Matias MD at 14:15 EDT ,
[2021-08-29] MEDS: 0.9% Normal Saline 1,000 ML 999 ML IV (12:37)
[2021-08-29 12:39] LABS: Absolute Lymphocyte Count 0.48 X10^3/uL (0.83-4.51); Absolute Neutrophil Count 24.1 X10^3/uL (2.0-7.7); Basophil# 0.04 X10^3/uL; Basophil% 0.2 % (0-1); Eosinophil# 0.01 X10^3/uL; Hemoglobin 12.8 g/dL (13.0-16.5); Lymphocyte # 0.48 X10^3/ul (0.83-4.51); Lymphocyte % 1.8 % (19-41); Mean Corp Hgb Conc 34.6 g/dL (32-36); Mean Corpuscular Hgb 33.5 pg (27.0-32.0); Mean Corpuscular Volume 96.9 fL (80-94); Mean Platelet Vol. 9.7 fl (6.2-12.0); Monocyte# 1.16 X10^3/uL; Monocyte% 4.5 % (0-10); NRBC Flagged by Analyzer 0 % (0-5); Neutrophil # 24.13 X10^3/uL (2.7-7.7); Neutrophil % 92.7 % (47-70); POSITIVE DIFFERENTIAL YES; Platelet Count 359 K/mm3 (150-450); RBC Distribution Width CV 14.4 % (11.6-14.6); RBC Distribution Width SD 50.3 fl (35.1-43.9); Red Blood Count 3.82 M/mm3 (4.6-6.2)
--- NOTE | 2021-08-29 12:40 | EDS_ITS ---
HPI History of Present Illness Chief Complaint: Shortness of Breath Narrative Narrative: 46-year-old male with history of asthma/COPD presenting with shortness of breath. He states has been like this for a few days. He was on prednisone 60 mg and as the taper has gone to 40 mg the patient has felt more short of breath. He feels wheezy and tight. He does have albuterol at home and tried this as it without help. He also has Spiriva, Pulmicort. Patient has home nebulizers which are working. He still feels short of breath and was sent to the ER by his primary care physician. 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 He states he has a slight cough but no fever, chills. He states he has a history of hospitalization in 2 admissions where he was on a ventilator for COPD. [facility] Medical History Anxiety Chronic neck and back pain Shoulder pain Home Medications albuterol sulfate 1 puff INHALATION Q4H PRN PRN 04/30/13 [History Last Taken 04/11/20 08:20 1 PUFF] clonazepam 0.5 mg PO TID 04/30/13 [History Last Taken Unknown] ipratropium-albuterol 2 puff INHALATION BID 04/30/13 [History Last Taken Unknown] adalimumab 40 mg SQ Q14D 04/08/19 [History Last Taken Unknown] budesonide-formoterol 2 puff IH BID 04/08/19 [History Last Taken 04/11/20 08:20 2 PUFF] cholecalciferol (vitamin D3) 1,000 unit PO DAILY 04/08/19 [History Last Taken Unknown] fluticasone propionate 2 spray NASAL DAILY 04/08/19 [History Last Taken Unknown] methotrexate sodium 18 mg PO WE 04/08/19 [History Last Taken Unknown] omega-3 fatty acids-fish oil 1 ea PO DAILY 04/08/19 [History Last Taken Unknown] omeprazole-sodium bicarbonate 20 ea PO DAILY 04/08/19 [History Last Taken Unknown] sulindac 200 mg PO BID 04/08/19 [History Last Taken Unknown] turmeric root extract 500 mg PO DAILY 04/08/19 [History Last Taken Unknown] prednisone 60 mg PO DAILY 5 Days #30 tab 08/29/21 [Rx Last Taken Unknown] Allergy/AdvReac Type Severity Reaction Status Date / Time epinephrine Allergy Unknown Verified 08/29/21 11:56 Social History Smoking Status: Current every day smoker tobacco type: cigarettes ROS ROS ED Constitutional Constitutional ED: Denies chills or fever(s) Eyes Eyes: Denies blurry vision or diplopia ENT ENT ED: Denies rhinorrhea or sore throat Cardiovascular Cardiovascular: Reports racing heartbeat; Denies chest pain Respiratory/Chest Respiratory/Chest: Reports cough, dyspnea and dyspnea on exertion Gastrointestinal Gastrointestinal: Denies abdominal pain, nausea or vomiting Genitourinary Genitourinary ED: Denies dysuria or hematuria Musculoskeletal Musculoskeletal: Denies arthralgias, myalgias or neck pain Integumentary Denies rash Neurologic Neurologic: Denies headache(s) Psychiatric Psychiatric: Denies anxiety or depression EXAM Physical Exam Const Vital Signs: 08/29/21 11:56 08/29/21 12:07 08/29/21 12:43 Temperature 98.0 F Temperature Source Temporal Pulse Rate 124 H 101 H Respiratory Rate 24 H 12 Respiratory Effort Short of Breath Accessory Muscle Use Respiratory Depth Deep Respiratory Pattern Tachypnea Normal Blood Pressure 150/98 H Blood Pressure Mean 115 Pulse Ox 93 94 Oxygen Delivery Method Room Air Room Air 08/29/21 14:33 Temperature Temperature Source Pulse Rate 94 Respiratory Rate 16 Respiratory Effort Respiratory Depth Respiratory Pattern Blood Pressure 111/72 Blood Pressure Mean 85 Pulse Ox 93 Oxygen Delivery Method Room Air Positive cachectic General Appearance ED: cachectic and NAD; Negative for pallor Nutritional Appearance: cachectic HEENT Reports dry mucous membranes atraumatic Mouth ED: Yes dry mucous membranes Mouth: dry mucous membranes Eyes PERRL and EOMs intact bilaterally General Eye ED: Negative for pale conjunctiva or scleral icterus Resp Resp Narrative: Tachypnea Auscultation: wheezes expiratory wheezes and inspiratory wheezes Cardio regular rhythm Rate: tachycardic GI non-tender and non-distended Palpation: soft Neuro oriented x3 and CN's II-XII intact bilaterally Sensorium / Orientation: alert Psych mental status grossly normal Skin General Skin Exam: Negative for jaundice or pallor MDM MDM MDM Narrative Medical decision making narrative: 46-year-old male presenting with asthma/COPD exacerbation. He states he was on about 4 days of 60 mg of prednisone and doing his albuterol at home and felt well like he was improving and then after he switched to the tapering dose of 40 he felt worse. On evaluation he is wheezing and tight. He is not hypoxic and his pulse ox was 93%. Patient tachycardic and tachypneic. Sepsis work-up obtained. Patient does have a leukocytosis of 26,000, however his chest x-ray is negative and his urinalysis is negative. I have found no source of infection. Soon this is partially elevated due to his steroid use over several days. Patient is nontoxic-appearing. He is speaking in full sentences. He was given 2 stacked duo nebs and feels much better and feels as if he can go. The rest of his lab work including PT/INR, BMP, high- sensitivity troponin are normal. His high-sensitivity troponin is less than 3. Lactic acid 1.2. Chest x-ray on my and interpretation shows no acute cardiopulm onary process and radiologist does agree. Since patient is well-appearing I did walk him at the bedside to maintain sats of 93% with ambulation. He does not feel like he wants to stay in the hospital. I spoke with Dr. Zaldivar who states he can follow-up with him within the next 1 to 2 days. I did discuss with him that the patient wants to go back to 60 mg of prednisone daily and this will be provided for him. He was amenable to that plan. Patient was pancultured and he is aware that if he has a positive culture he will need to return to the ER. The patient knows that if he is worsening to return to the ER. Impression: 1. Asthma exacerbation 2. Leukocytosis Lab Data Attestation: I reviewed the patient's lab results. Labs: Laboratory Results - last 24 hr 08/29/21 08/29/21 08/29/21 12:21 12:21 12:21 WBC 26.0 H RBC 3.82 L Hgb 12.8 L Hct 37.0 L MCV 96.9 H MCH 33.5 H MCHC 34.6 RDW Std Deviation 50.3 H RDW Coeff of Lana 14.4 Plt Count 359 MPV 9.7 Immature Gran % (Auto) 0.800 Neut % (Auto) 92.7 H Lymph % (Auto) 1.8 L [place] % (Auto) 4.5 Eos % (Auto) 0.0 Baso % (Auto) 0.2 Absolute Neuts (auto) 24.1 H Absolute Lymphs (auto) 0.48 L Nucleated RBC % 0 Differential Comment SCANNED PT 13.4 INR 1.1 Sodium 134 L Potassium 4.1 Chloride 102 Carbon Dioxide 29.0 Anion Gap 3 L BUN 16 Creatinine 1.12 Estim Creat Clear Calc 57.96 Est GFR (MDRD) Af Amer 90 Est GFR (MDRD) Non-Af 74 BUN/Creatinine Ratio 14.3 Glucose 158 H Lactic Acid Calcium 7.9 L Troponin I High Sens < 3 L Urine Color Urine Clarity Urine pH Ur Specific [place] Urine Protein Urine Glucose (UA) Urine Ketones Urine Occult Blood Urine Nitrite Urine Bilirubin Urine Urobilinogen Ur Leukocyte Esterase Urine RBC Urine WBC Ur Squamous Epith Cells Urine Bacteria Urine Mucus 08/29/21 08/29/21 12:55 13:55 WBC RBC Hgb Hct MCV MCH MCHC RDW Std Deviation RDW Coeff of Lana Plt Count MPV Immature Gran % (Auto) Neut % (Auto) Lymph % (Auto) [place] % (Auto) Eos % (Auto) Baso % (Auto) Absolute Neuts (auto) Absolute Lymphs (auto) Nucleated RBC % Differential Comment PT INR Sodium Potassium Chloride Carbon Dioxide Anion Gap BUN Creatinine Estim Creat Clear Calc Est GFR (MDRD) Af Amer Est GFR (MDRD) Non-Af BUN/Creatinine Ratio Glucose Lactic Acid 1.2 Calcium Troponin I High Sens Urine Color Yellow Urine Clarity Clear Urine pH 8.0 Ur Specific [place] 1.015 Urine Protein Negative Urine Glucose (UA) Normal Urine Ketones Negative Urine Occult Blood Negative Urine Nitrite Negative Urine Bilirubin Negative Urine Urobilinogen Normal Ur Leukocyte Esterase 25 H Urine RBC 0 SEEN Urine WBC 0 SEEN Ur Squamous Epith Cells 0 SEEN Urine Bacteria 0 SEEN Urine Mucus 0 SEEN Radiography Diagnostic Testing: Clinical Impression(s) from Imaging Studies Chest X-Ray 08/29/21 12:28 IMPRESSION: Normal x-ray examination of the chest. Electronically Signed: Syed Matias MD at 14:15 EDT , Discharge Plan Triage Chief Complaint: Shortness of Breath ED Provider: Jose Steele Dx/Rx/DC Orders Instructions: ED Asthma, Acute (Adult) Prescriptions: New prednisone 10 mg tablet 60 mg PO DAILY 5 Days Qty: 30 RF: 0 No Action clonazepam 0.5 MG tablet 0.5 mg PO TID RF: 0 ipratropium-albuterol 1 PUFF inhaler 2 puff inhalation BID RF: 0 albuterol sulfate 1 PUFF inhaler 1 puff inhalation Q4H PRN PRN (Reason: Sob Or Anxiety) RF: 0 methotrexate sodium 2.5 MG tablet 18 mg PO WE RF: 0 fluticasone propionate 1 SPRAY spray,suspension 2 spray NASAL DAILY RF: 0 sulindac 200 MG tablet 200 mg PO BID RF: 0 cholecalciferol (vitamin D3) 1,000 UNIT capsule 1,000 unit PO DAILY RF: 0 adalimumab 40 MG/0.8 ML syringe kit 40 mg SQ Q14D RF: 0 omeprazole-sodium bicarbonate 1 EACH capsule 20 ea PO DAILY RF: 0 omega-3 fatty acids-fish oil 1 EACH capsule 1 ea PO DAILY RF: 0 budesonide-formoterol 10.2 GM HFA aerosol inhaler 2 puff IH BID RF: 0 turmeric root extract 500 MG capsule 500 mg PO DAILY RF: 0 Primary Care Provider: Jong Zaldivar Referrals: Jong Zaldivar MD [Primary Care Provider] - Disposition Disposition: Home, Self Care
[2021-08-29 12:42] LABS: Differential Indicated SCAN CRITERIA MET
[2021-08-29] MEDS: Ipratropium/Albuterol Sulfate 3 ML AMPUL.NEB INHALATION ×2 (12:42→12:50)
[2021-08-29 12:43] VITALS: PULSE 101; RESP 12
[2021-08-29 12:55] LABS: Anion Gap 3 (5-15); BUN 16 mg/dL (7-18); BUN/Creat Ratio 14.3 RATIO (10-20); Calcium,Total 7.9 mg/dL (8.5-10.1); Chloride 102 mmol/L (98-107); Creatinine, Serum 1.12 mg/dL (0.70-1.30); EST Glomerular Filtration Rate 74 mL/min (>60); Est Glom Filt Rate - Afr Amer 90 mL/min (>60); Estimated Creatinine Clearance 57.96 ml/min; Glucose 158 mg/dL (74-106); Potassium 4.1 mmol/L (3.5-5.1); Sodium Level 134 mmol/L (136-145); Troponin-I HS < 3 pg/mL (3.0-78.0)
[2021-08-29 13:03] LABS: Differential Comment SCANNED
[2021-08-29 13:13] LABS: International Normalized Ratio 1.1; Prothrombin Time (Protime)PT. 13.4 SECONDS (11.7-14.9)
[2021-08-29 13:38] LABS: Lactic Acid 1.2 mmol/L (0.4-1.9)
[2021-08-29 13:59] LABS: Bacteria 0 SEEN /hpf (None Seen); Mucous, Urine 0 SEEN /hpf (<or=2+); Red Blood Cells-Urine 0 SEEN /hpf (0-5); Squamous Epithelial Cells - UA 0 SEEN /hpf (0-5); White Blood Cells 0 SEEN /hpf (0-5)
[2021-08-29 14:01] LABS: Color, Urine Yellow (Yellow); Glucose, Dipstick Normal (Normal); Ketone-Dipstick Negative (Negative); Leukocyte Esterase-Dipstick 25 /ul (Negative); Nitrite-Dipstick Negative (Negative); Occult Blood-Urine Negative /ul (Negative); Protein-Dipstick Negative (Negative); Specific Gravity, Urine 1.015 (1.002-1.030); Urine Bilirubin Dipstick Negative (Negative); Urine Clarity Clear (Clear); Urine Urobilinogen Normal (Normal)
[2021-08-29 14:33] VITALS: BP 111/72; PULSE 94; RESP 16; O2SAT 93
[2021-08-29 15:17] VITALS: BP 111/72; PULSE 94; RESP 18; O2SAT 92
== END 2021-08-29 15:31 | disposition home or self-care (01) ==
PROVIDERS: Emergency Provider Student in an Organized Health Care Education/Training Program; PCP Family Medicine; Visit Provider Student in an Organized Health Care Education/Training Program
DX: J44.1 Chronic obstructive pulmonary disease with (acute) exacerbation (principal); D72.829 Elevated white blood cell count, unspecified; F41.9 Anxiety disorder, unspecified; F17.210 Nicotine dependence, cigarettes, uncomplicated; Z79.899 Other long term (current) drug therapy
CPT/HCPCS: 71045; 80048; 81001; 83605; 84484; 85025; 85610; 87040; 87086; 87088; 93005; 94640; 96360; 99284; J7030

== ENCOUNTER 2021-10-11 15:22 | Outpatient (RCR) | payer MEDICARE, MEDICAID, SELFPAY ==
[2021-10-11 17:44] LABS: Hematocrit 39.8 % (40-54); Hemoglobin 13.2 g/dL (13.0-16.5); Mean Corp Hgb Conc 33.2 g/dL (32-36); Mean Corpuscular Hgb 33.8 pg (27.0-32.0); Mean Corpuscular Volume 102.1 fL (80-94); Mean Platelet Vol. 10.4 fl (6.2-12.0); Platelet Count 373 K/mm3 (150-450); RBC Distribution Width CV 13.8 % (11.6-14.6); RBC Distribution Width SD 51.3 fl (35.1-43.9); White Blood Count 10.1 K/mm3 (4.4-11.0)
[2021-10-11 18:04] LABS: AST(SGOT) 9 U/L (15-37); Alanine Aminotransfer ALT/SGPT 21 U/L (16-61); Creatinine, Serum 0.93 mg/dL (0.70-1.30); EST Glomerular Filtration Rate 93 mL/min (>60); Est Glom Filt Rate - Afr Amer 112 mL/min (>60)
[2021-10-11 18:14] LABS: Erythrocyte Sedimentation Rate 23 mm/hr (0-20)
== END 2021-10-11 18:00 | disposition home or self-care (01) ==
LOC: MTLAB 15:22
PROVIDERS: PCP Family Medicine; Referring Provider Internal Medicine Rheumatology; Visit Provider Internal Medicine Rheumatology
DX: L40.50 Arthropathic psoriasis, unspecified (principal); G56.23 Lesion of ulnar nerve, bilateral upper limbs; M41.9 Scoliosis, unspecified; M47.816 Spondylosis without myelopathy or radiculopathy, lumbar region; M19.041 Primary osteoarthritis, right hand; M19.042 Primary osteoarthritis, left hand; M47.812 Spondylosis without myelopathy or radiculopathy, cervical region; M51.36 Other intervertebral disc degeneration, lumbar region; M50.30 Other cervical disc degeneration, unspecified cervical region; Z79.899 Other long term (current) drug therapy; Z79.1 Long term (current) use of non-steroidal anti-inflammatories (NSAID); Z87.2 Personal history of diseases of the skin and subcutaneous tissue
CPT/HCPCS: 36415; 82565; 84450; 84460; 85027; 85652; 86140

== ENCOUNTER 2022-01-10 15:06 | Outpatient (RCR) | payer MEDICARE, MEDICAID, SELFPAY ==
[2022-01-10 18:03] LABS: Erythrocyte Sedimentation Rate 26 mm/hr (0-20)
[2022-01-10 18:05] LABS: Absolute Lymphocyte Count 2.34 X10^3/uL (0.83-4.51); Absolute Neutrophil Count 5.2 X10^3/uL (2.0-7.7); Basophil# 0.11 X10^3/uL; Basophil% 1.2 % (0-1); Eosinophil# 0.33 X10^3/uL; Eosinophils% 3.7 % (0-5); Hemoglobin 14.2 g/dL (13.0-16.5); Lymphocyte # 2.34 X10^3/ul (0.83-4.51); Lymphocyte % 26.4 % (19-41); Mean Corp Hgb Conc 33.8 g/dL (32-36); Mean Corpuscular Hgb 32.8 pg (27.0-32.0); Mean Platelet Vol. 10.4 fl (6.2-12.0); Monocyte# 0.83 X10^3/uL; Monocyte% 9.4 % (0-10); NRBC Flagged by Analyzer 0 % (0-5); Neutrophil % 58.8 % (47-70); Platelet Count 351 K/mm3 (150-450); RBC Distribution Width CV 13.1 % (11.6-14.6); Red Blood Count 4.33 M/mm3 (4.6-6.2); White Blood Count 8.9 K/mm3 (4.4-11.0)
[2022-01-10 18:26] LABS: Vitamin D,25 Hydroxy 22.1 ng/mL
[2022-01-10 18:39] LABS: AST(SGOT) 15 U/L (15-37); Alanine Aminotransfer ALT/SGPT 46 U/L (16-61); Anion Gap 4 (5-15); BUN 13 mg/dL (7-18); BUN/Creat Ratio 13.7 RATIO (10-20); CRP 4.73 mg/L (0.0-3.0); Calcium,Total 8.2 mg/dL (8.5-10.1); Chloride 104 mmol/L (98-107); Creatinine, Serum 0.95 mg/dL (0.70-1.30); EST Glomerular Filtration Rate 90 mL/min (>60); Est Glom Filt Rate - Afr Amer 108 mL/min (>60); Glucose 70 mg/dL (74-106); Sodium Level 138 mmol/L (136-145); Thyroid Stim Hormone (TSH) 2.03 uIU/mL (0.358-3.74)
[2022-01-10 18:52] LABS: PTHIN 53.8 pg/mL (18.4-80.1)
== END 2022-01-10 18:00 | disposition home or self-care (01) ==
LOC: MTLAB 15:06
PROVIDERS: PCP Family Medicine; Referring Provider Internal Medicine Rheumatology; Visit Provider Internal Medicine Rheumatology
DX: M81.0 Age-related osteoporosis without current pathological fracture; Z79.899 Other long term (current) drug therapy; J44.9 Chronic obstructive pulmonary disease, unspecified; L40.50 Arthropathic psoriasis, unspecified; L40.9 Psoriasis, unspecified; Z79.1 Long term (current) use of non-steroidal anti-inflammatories (NSAID); Z87.2 Personal history of diseases of the skin and subcutaneous tissue; G56.23 Lesion of ulnar nerve, bilateral upper limbs; M41.9 Scoliosis, unspecified; M47.816 Spondylosis without myelopathy or radiculopathy, lumbar region; M19.041 Primary osteoarthritis, right hand; M19.042 Primary osteoarthritis, left hand; M47.812 Spondylosis without myelopathy or radiculopathy, cervical region; M51.36 Other intervertebral disc degeneration, lumbar region; M50.30 Other cervical disc degeneration, unspecified cervical region
CPT/HCPCS: 80048; 82306; 82330; 83970; 84443; 84450; 84460; 85025; 85652; 86140

== ENCOUNTER 2022-04-12 14:16 | Outpatient (RCR) | payer MEDICARE, MEDICAID, SELFPAY ==
[2022-04-12 18:04] LABS: Absolute Lymphocyte Count 2.03 X10^3/uL (0.83-4.51); Absolute Neutrophil Count 4.6 X10^3/uL (2.0-7.7); Basophil% 1.1 % (0-1); Eosinophil# 1.15 X10^3/uL; Eosinophils% 12.9 % (0-5); Hematocrit 40.4 % (40-54); Hemoglobin 13.3 g/dL (13.0-16.5); Lymphocyte # 2.03 X10^3/ul (0.83-4.51); Lymphocyte % 22.8 % (19-41); Mean Corp Hgb Conc 32.9 g/dL (32-36); Mean Corpuscular Hgb 32.8 pg (27.0-32.0); Mean Corpuscular Volume 99.8 fL (80-94); Mean Platelet Vol. 10.3 fl (6.2-12.0); Monocyte# 0.97 X10^3/uL; Monocyte% 10.9 % (0-10); NRBC Flagged by Analyzer 0 % (0-5); Neutrophil # 4.62 X10^3/uL (2.7-7.7); Platelet Count 385 K/mm3 (150-450); RBC Distribution Width CV 12.9 % (11.6-14.6); RBC Distribution Width SD 47.4 fl (35.1-43.9); Red Blood Count 4.05 M/mm3 (4.6-6.2); White Blood Count 8.9 K/mm3 (4.4-11.0)
[2022-04-12 18:11] LABS: AST(SGOT) 17 U/L (15-37); Alanine Aminotransfer ALT/SGPT 47 U/L (16-61); Anion Gap 4 (5-15); BUN 14 mg/dL (7-18); BUN/Creat Ratio 12.8 RATIO (10-20); CRP 8.85 mg/L (0.0-3.0); Calcium,Total 8.4 mg/dL (8.5-10.1); Chloride 103 mmol/L (98-107); Creatinine, Serum 1.09 mg/dL (0.70-1.30); EST Glomerular Filtration Rate 77 mL/min (>60); Est Glom Filt Rate - Afr Amer 93 mL/min (>60); Glucose 81 mg/dL (74-106); Sodium Level 139 mmol/L (136-145)
[2022-04-12 18:24] LABS: Erythrocyte Sedimentation Rate 18 mm/hr (0-20)
== END 2022-04-25 18:00 | disposition home or self-care (01) ==
LOC: MTLAB 14:16
PROVIDERS: PCP Family Medicine; Referring Provider Internal Medicine Rheumatology; Visit Provider Internal Medicine Rheumatology
DX: G56.23 Lesion of ulnar nerve, bilateral upper limbs (principal); L40.50 Arthropathic psoriasis, unspecified; M50.30 Other cervical disc degeneration, unspecified cervical region; M51.36 Other intervertebral disc degeneration, lumbar region; M47.812 Spondylosis without myelopathy or radiculopathy, cervical region; M19.041 Primary osteoarthritis, right hand; M19.042 Primary osteoarthritis, left hand; M47.816 Spondylosis without myelopathy or radiculopathy, lumbar region; M41.9 Scoliosis, unspecified; L40.9 Psoriasis, unspecified; R79.82 Elevated C-reactive protein (CRP); E16.2 Hypoglycemia, unspecified; Z87.2 Personal history of diseases of the skin and subcutaneous tissue; Z79.1 Long term (current) use of non-steroidal anti-inflammatories (NSAID); Z79.899 Other long term (current) drug therapy
CPT/HCPCS: 80048; 84450; 84460; 85025; 85652; 86140

== ENCOUNTER 2022-07-23 14:09 | Outpatient (RCR) | payer MEDICARE, MEDICAID, SELFPAY ==
[2022-07-23 17:52] LABS: Absolute Lymphocyte Count 2.13 X10^3/uL (0.83-4.51); Absolute Neutrophil Count 4.7 X10^3/uL (2.0-7.7); Basophil# 0.16 X10^3/uL; Basophil% 1.8 % (0-1); Eosinophil# 0.83 X10^3/uL; Eosinophils% 9.5 % (0-5); Hematocrit 42.2 % (40-54); Lymphocyte # 2.13 X10^3/ul (0.83-4.51); Lymphocyte % 24.3 % (19-41); Mean Corp Hgb Conc 33.2 g/dL (32-36); Mean Corpuscular Hgb 33.4 pg (27.0-32.0); Mean Corpuscular Volume 100.7 fL (80-94); Mean Platelet Vol. 10.2 fl (6.2-12.0); Monocyte# 0.91 X10^3/uL; Monocyte% 10.4 % (0-10); NRBC Flagged by Analyzer 0 % (0-5); Neutrophil % 53.8 % (47-70); Platelet Count 338 K/mm3 (150-450); RBC Distribution Width CV 11.5 % (11.6-14.6); Red Blood Count 4.19 M/mm3 (4.6-6.2); White Blood Count 8.8 K/mm3 (4.4-11.0)
[2022-07-23 18:05] LABS: Vitamin D,25 Hydroxy 17.8 ng/mL
[2022-07-23 18:13] LABS: AST(SGOT) 21 U/L (15-37); Alanine Aminotransfer ALT/SGPT 68 U/L (16-61); CRP < 2.90 mg/L (0.0-3.0); Creatinine, Serum 1.18 mg/dL (0.70-1.30); EST Glomerular Filtration Rate 70 mL/min (>60); Est Glom Filt Rate - Afr Amer 84 mL/min (>60)
[2022-07-23 18:23] LABS: Erythrocyte Sedimentation Rate 24 mm/hr (0-20)
[2022-07-25 19:48] LABS: Vitamin D 1,25-Dihydroxy 55.9 pg/mL (24.8-81.5)
== END 2022-07-23 18:00 | disposition home or self-care (01) ==
LOC: MTLAB 14:09
PROVIDERS: PCP Family Medicine; Referring Provider Internal Medicine Rheumatology; Visit Provider Internal Medicine Rheumatology
DX: L40.50 Arthropathic psoriasis, unspecified (principal); M41.9 Scoliosis, unspecified; L40.9 Psoriasis, unspecified; R79.82 Elevated C-reactive protein (CRP); Z87.2 Personal history of diseases of the skin and subcutaneous tissue; Z79.1 Long term (current) use of non-steroidal anti-inflammatories (NSAID); Z79.899 Other long term (current) drug therapy; E16.2 Hypoglycemia, unspecified; G56.23 Lesion of ulnar nerve, bilateral upper limbs; M50.30 Other cervical disc degeneration, unspecified cervical region; M51.36 Other intervertebral disc degeneration, lumbar region; M47.812 Spondylosis without myelopathy or radiculopathy, cervical region; M19.041 Primary osteoarthritis, right hand; M19.042 Primary osteoarthritis, left hand; M47.816 Spondylosis without myelopathy or radiculopathy, lumbar region; E55.9 Vitamin D deficiency, unspecified
CPT/HCPCS: 36415; 82306; 82565; 82652; 84450; 84460; 85025; 85652; 86140

== ENCOUNTER → 2022-08-08 | Outpatient (CLI) | payer MEDICARE, MEDICAID, SELFPAY ==
[2022-08-08 18:59] LABS: AST(SGOT) 14 U/L (15-37); Alanine Aminotransfer ALT/SGPT 26 U/L (16-61)
== END | disposition home or self-care (01) ==
LOC: MTLAB 14:29
PROVIDERS: PCP Family Medicine; Referring Provider Internal Medicine Rheumatology; Visit Provider Internal Medicine Rheumatology
DX: R79.89 Other specified abnormal findings of blood chemistry (principal)
CPT/HCPCS: 36415; 84450; 84460

== ENCOUNTER → 2022-11-28 | Outpatient (CLI) | payer MEDICARE, MEDICAID, SELFPAY ==
[2022-11-28 15:29] LABS: Absolute Lymphocyte Count 1.92 X10^3/uL (0.83-4.51); Absolute Neutrophil Count 6.8 X10^3/uL (2.0-7.7); Basophil# 0.09 X10^3/uL; Basophil% 0.8 % (0-1); Eosinophil# 0.88 X10^3/uL; Eosinophils% 8.1 % (0-5); Hematocrit 42.2 % (40-54); Hemoglobin 14.2 g/dL (13.0-16.5); Lymphocyte # 1.92 X10^3/ul (0.83-4.51); Lymphocyte % 17.6 % (19-41); Mean Corp Hgb Conc 33.6 g/dL (32-36); Mean Corpuscular Hgb 34.1 pg (27.0-32.0); Mean Corpuscular Volume 101.2 fL (80-94); Mean Platelet Vol. 10.2 fl (6.2-12.0); Monocyte# 1.22 X10^3/uL; Monocyte% 11.2 % (0-10); NRBC Flagged by Analyzer 0 % (0-5); Neutrophil # 6.77 X10^3/uL (2.7-7.7); Neutrophil % 61.9 % (47-70); Platelet Count 364 K/mm3 (150-450); RBC Distribution Width CV 12.8 % (11.6-14.6); RBC Distribution Width SD 47.1 fl (35.1-43.9); Red Blood Count 4.17 M/mm3 (4.6-6.2); White Blood Count 10.9 K/mm3 (4.4-11.0)
[2022-11-28 15:45] LABS: Vitamin D,25 Hydroxy 16.8 ng/mL
[2022-11-28 15:48] LABS: Erythrocyte Sedimentation Rate 23 mm/hr (0-20)
[2022-11-28 16:06] LABS: AST(SGOT) 19 U/L (15-37); Alanine Aminotransfer ALT/SGPT 23 U/L (16-61); CRP < 2.90 mg/L (0.0-3.0); Creatinine, Serum 0.96 mg/dL (0.70-1.30); EST Glomerular Filtration Rate 88 mL/min (>60); Est Glom Filt Rate - Afr Amer 106 mL/min (>60)
[2022-12-01 14:10] LABS: Vitamin D 1,25-Dihydroxy 49.1 pg/mL (24.8-81.5)
== END | disposition home or self-care (01) ==
PROVIDERS: PCP Family Medicine; Referring Provider Internal Medicine Rheumatology; Visit Provider Internal Medicine Rheumatology
DX: E55.9 Vitamin D deficiency, unspecified (principal); L40.50 Arthropathic psoriasis, unspecified; M41.9 Scoliosis, unspecified; G56.23 Lesion of ulnar nerve, bilateral upper limbs; M50.30 Other cervical disc degeneration, unspecified cervical region; M51.36 Other intervertebral disc degeneration, lumbar region; M47.812 Spondylosis without myelopathy or radiculopathy, cervical region; M19.041 Primary osteoarthritis, right hand; M19.042 Primary osteoarthritis, left hand; M47.816 Spondylosis without myelopathy or radiculopathy, lumbar region; D64.9 Anemia, unspecified; Z79.1 Long term (current) use of non-steroidal anti-inflammatories (NSAID); Z79.631 Long term (current) use of antimetabolite agent; Z79.83 Long term (current) use of bisphosphonates; Z79.899 Other long term (current) drug therapy; Z87.2 Personal history of diseases of the skin and subcutaneous tissue
CPT/HCPCS: 36415; 82306; 82565; 82652; 84450; 84460; 85025; 85652; 86140

== ENCOUNTER → 2023-01-31 | Outpatient (CLI) | payer MEDICARE, MEDICAID, SELFPAY ==
[2023-01-31 10:32] LABS: Erythrocyte Sedimentation Rate 9 mm/hr (0-20)
[2023-01-31 10:34] LABS: Absolute Lymphocyte Count 2.19 X10^3/uL (0.83-4.51); Absolute Neutrophil Count 7.6 X10^3/uL (2.0-7.7); Basophil# 0.09 X10^3/uL; Basophil% 0.8 % (0-1); Eosinophil# 0.62 X10^3/uL; Eosinophils% 5.4 % (0-5); Hematocrit 37.8 % (40-54); Hemoglobin 12.3 g/dL (13.0-16.5); Lymphocyte # 2.19 X10^3/ul (0.83-4.51); Mean Corp Hgb Conc 32.5 g/dL (32-36); Mean Corpuscular Hgb 33.3 pg (27.0-32.0); Mean Corpuscular Volume 102.4 fL (80-94); Mean Platelet Vol. 9.9 fl (6.2-12.0); Monocyte# 0.99 X10^3/uL; Monocyte% 8.6 % (0-10); NRBC Flagged by Analyzer 0 % (0-5); Neutrophil % 65.7 % (47-70); Platelet Count 331 K/mm3 (150-450); RBC Distribution Width CV 11.8 % (11.6-14.6); RBC Distribution Width SD 44.7 fl (35.1-43.9); Red Blood Count 3.69 M/mm3 (4.6-6.2); White Blood Count 11.6 K/mm3 (4.4-11.0)
[2023-01-31 10:55] LABS: Vitamin D,25 Hydroxy 15.8 ng/mL
[2023-01-31 11:04] LABS: AST(SGOT) 15 U/L (15-37); Alanine Aminotransfer ALT/SGPT 21 U/L (16-61); CRP < 2.90 mg/L (0.0-3.0); Cholesterol 165 mg/dL (200); Creatinine, Serum 1.08 mg/dL (0.70-1.30); EST Glomerular Filtration Rate 77 mL/min (>60); Est Glom Filt Rate - Afr Amer 93 mL/min (>60); High Density Lipoprotein 58 mg/dL; Triglycerides 105 mg/dL; Very Low Density Lipoprotein 21 mg/dL (5-40)
== END | disposition home or self-care (01) ==
LOC: MTLAB 09:34
PROVIDERS: PCP Family Medicine; Visit Provider Internal Medicine Rheumatology
DX: L40.50 Arthropathic psoriasis, unspecified (principal); M41.9 Scoliosis, unspecified; G56.23 Lesion of ulnar nerve, bilateral upper limbs; M50.30 Other cervical disc degeneration, unspecified cervical region; M51.36 Other intervertebral disc degeneration, lumbar region; M47.812 Spondylosis without myelopathy or radiculopathy, cervical region; M19.041 Primary osteoarthritis, right hand; M19.042 Primary osteoarthritis, left hand; M47.816 Spondylosis without myelopathy or radiculopathy, lumbar region; D64.9 Anemia, unspecified; E55.9 Vitamin D deficiency, unspecified; Z87.2 Personal history of diseases of the skin and subcutaneous tissue; Z79.83 Long term (current) use of bisphosphonates; Z79.1 Long term (current) use of non-steroidal anti-inflammatories (NSAID); Z79.899 Other long term (current) drug therapy; Z79.631 Long term (current) use of antimetabolite agent
CPT/HCPCS: 80061; 82306; 82565; 84450; 84460; 85025; 85652; 86140

== ENCOUNTER → 2023-02-13 | Outpatient (CLI) | payer MEDICARE, MEDICAID, SELFPAY ==
[2023-02-13 18:25] LABS: Anion Gap 3 (5-15); BUN 19 mg/dL (7-18); BUN/Creat Ratio 16.5 RATIO (10-20); Calcium,Total 8.4 mg/dL (8.5-10.1); Chloride 106 mmol/L (98-107); Creatinine, Serum 1.15 mg/dL (0.70-1.30); EST Glomerular Filtration Rate 72 mL/min (>60); Est Glom Filt Rate - Afr Amer 87 mL/min (>60); Glucose 106 mg/dL (74-106); Potassium 3.3 mmol/L (3.5-5.1); Sodium Level 139 mmol/L (136-145); Thyroid Stim Hormone (TSH) 0.55 uIU/mL (0.358-3.74)
[2023-02-14 08:19] LABS: PTHIN 79.2 pg/mL (18.4-80.1)
== END | disposition home or self-care (01) ==
LOC: MFPLAB 15:14
PROVIDERS: PCP Family Medicine; Visit Provider Family Medicine
DX: R03.0 Elevated blood-pressure reading, without diagnosis of hypertension (principal); M81.0 Age-related osteoporosis without current pathological fracture; F41.1 Generalized anxiety disorder
CPT/HCPCS: 36415; 80048; 83970; 84443

== ENCOUNTER → 2023-05-23 | Outpatient (CLI) | payer MEDICARE, MEDICAID, SELFPAY ==
--- OUTSIDE RECORDS SUMMARY | 2023-05-23 14:19 | XMS RPT_ITS | CCD ---
Author Name Unknown Address [address] [facility] [address] [place] [address] Organization [facility] Care Team Providers Care Food Services Director Name Role Phone Susan Zaldivar Primary Care Provider [phone] Susan Zaldivar MD Primary Care Provider Susan Zaldivar MD Primary Care Provider SUSAN ZALDIVAR Primary Care Unavailabl e SUSAN ZALDIVAR Primary Care Unavailabl e SUSAN ZALDIVAR Primary Care Unavailabl e SUSAN ZALDIVAR Primary Care Unavailabl e SUSAN ZALDIVAR Primary Care Unavailabl e SUSAN ZALDIVAR Primary Care Unavailabl e SUSAN ZALDIVAR Primary Care Unavailabl e SELF, SELF Referring Unavailable PIERRE ENGEL JR, JR Attending Toma PIERRE Washington JR, JR Unavaila SUSAN Grant Primary Care Unavailabl e SELF, SELF Referring Unavailable SUSAN ZALDIVAR Primary Care Unavailabl e SELF, SELF Referring Unavailable PIERRE ENGEL JR, JR Unavaila SUSAN Grant Primary Care Unavailabl e Allergies Allergy Classification Reported Allergen(s) Allergy Type Date of Onset Reaction(s) Facility (20 sources) EPINEPHrine Drug Allergy 06-28-2005 [facility] (20 sources) Etanercept Drug Allergy 01-21-2019 [facility] Medications Current Medications Medication Drug Class(es) Dates Sig (Normalized) Sig (Original) 0.4 ml adalimumab 100 mg/ml auto-injector (20 sources) Tumor Necrosis Factor Gerald Start: 01-22-2022 Adalimumab (Humira Pen) 40 MG/0.4ML Pen-injector Kit citrate free Indications: Psoriatic arthritis , CRP elevated , History of psoriatic arthritis , 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) , Long-term use of high-risk medication , Methotrexate, 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, current use , Ulnar neuropathy of both upper extremities , DDD (degenerative disc disease), cervical , Lumbar degenerative disc disease , Osteoarthritis of cervical spine, unspecified spinal osteoarthritis complication status , Osteoarthritis of both hands, unspecified osteoarthritis type , Osteoarthritis of lumbar spine, unspecified spinal osteoarthritis complication status , Scoliosis of lumbar spine, unspecified scoliosis type , Psoriasis 40 mg injection one day a week 4 Each 01/22/2022 Active Completed/Discontinued Medications Medication Drug Class(es) Dates Sig (Normalized) Sig (Original) Elastic Bandages & Supports (WRIST SPLINT ELASTIC/LARGE-XL) Misc (18 sources) Start: 01-21-2019 End: 07-24-2019 Elastic Bandages & Supports (WRIST SPLINT ELASTIC/LARGE-XL) [facility] [place]: Psoriatic arthritis , Methotrexate, care home, current use , Long-term use of high-risk medication , 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) , History of psoriatic arthritis , Fatigue, unspecified type , Asthma, unspecified asthma severity, unspecified whether complicated, unspecified whether persistent , Paresthesia of both hands , Dorsalgia , Cervicalgia , Bilateral carpal tunnel syndrome , Weakness of both hands , Tendonitis of both rotator cuffs , Subacromial bursitis , Right elbow pain , Hip pain, left , Hip flexor tendonitis, left , Disorder of bone and cartilage , Chronic pain of both shoulders , Bilateral wrist pain , Bilateral hand pain , Bilateral biceps tendonitis B/L wrist splints for B/L CTS 2 Each 01/21/2019 07/24/2019 Discontinued Problems Active Problems Problem Classification Problem Date Documented Date Episodic/Chronic Asthma (20 sources) Asthma; Translations: [Unspecified asthma, uncomplicated] Onset: 9 01-21-2019 Chronic Deficiency and other anemia (8 sources) Anemia; Translations: [Anemia, unspecified] Onset: 0 Resolved: 0 07-24-2019 Episodic Nutritional deficiencies (5 sources) Vitamin D deficiency; Translations: [Vitamin D deficiency, unspecified] Onset: 3 Chronic Osteoarthritis (20 sources) Primary osteoarthritis, right hand; Translations: [Osteoarthritis of joint of bilateral hands] Onset: 9 03-18-2019 Chronic Other acquired deformities (20 sources) Scoliosis of lumbar spine; Translations: [Scoliosis, unspecified] Onset: 9 03-18-2019 Chronic Other acquired deformities (2 sources) Scoliosis, unspecified; Translations: [Scoliosis, unspecified] Onset: 9 Chronic Other aftercare (20 sources) terminal manager methotrexate user; Translations: [Other 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terminal (current) drug therapy] Onset: 9 01-21-2019 Episodic Other aftercare (6 sources) H/O: high risk medication; Translations: [Other 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terminal (current) drug therapy] Onset: 9 Episodic Other aftercare (6 sources) Patient encounter status; Translations: [care home (current) use of non-steroidal anti-inflammatories (NSAID)] Onset: 9 Episodic Other bone disease and musculoskeletal deformities (10 sources) Osteochondropathy; Translations: [Disorder of bone and cartilage] Onset: 9 01-21-2019 Chronic Other bone disease and musculoskeletal deformities (14 sources) Disorder of skeletal system; Translations: [Disorder of bone and cartilage] Onset: 9 01-21-2019 Chronic Other connective tissue disease (20 sources) H/O: arthritis; Translations: [Personal history of diseases of the skin and subcutaneous tissue] Onset: 9 01-21-2019 Episodic Other connective tissue disease (20 sources) Bilateral hand weakness; Translations: [Weakness of both hands] Onset: 9 01-21-2019 Other connective tissue disease (20 sources) Pain of bilateral hands; Translations: [Bilateral hand pain] Onset: 9 01-21-2019 Other connective tissue disease (20 sources) Bilateral rotator cuff tendinitis; Translations: [Tendonitis of both rotator cuffs] Onset: 9 01-21-2019 Other endocrine disorders (6 sources) Hypoglycemia; Translations: [Hypoglycemia, unspecified] Onset: 1 06-01-2020 Chronic Other inflammatory condition of skin (20 sources) Psoriatic arthritis; Translations: [Arthropathic psoriasis, unspecified] Onset: 9 01-21-2019 Chronic Other inflammatory condition of skin (12 sources) Psoriasis; Translations: [Psoriasis, unspecified] Onset: 0 07-24-2019 Chronic Other inflammatory condition of skin (2 sources) Arthropathic psoriasis, unspecified; Translations: [Arthropathic psoriasis, unspecified] Onset: 9 Chronic Other inflammatory condition of skin (2 sources) Psoriasis, unspecified; Translations: [Psoriasis, unspecified] Onset: 0 Chronic Other nervous system disorders (20 sources) Ulnar neuropathy; Translations: [Lesion of ulnar nerve, bilateral upper limbs] Onset: 9 03-18-2019 Chronic Other nervous system disorders (1 source) Lesion of ulnar nerve; Translations: [Lesion of ulnar nerve, bilateral] Chronic Other nervous system disorders (2 sources) Lesion of ulnar nerve, bilateral upper limbs; Translations: [Lesion of ulnar nerve, bilateral upper limbs] Onset: 9 Chronic Other non-traumatic joint disorders (20 sources) Bilateral wrist pain; Translations: [Bilateral wrist pain] Onset: 9 01-21-2019 Spondylosis; intervertebral disc disorders; other back problems (20 sources) Cervical spondylosis; Translations: [Lumbar spondylosis] Onset: 9 03-18-2019 Chronic Unclassified (20 sources) Patient encounter status; Translations: [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)] Onset: 9 01-21-2019 Unclassified (20 sources) H/O: high risk medication; Translations: [Long-term use of high-risk medication] Onset: 9 01-21-2019 Unclassified (2 sources) Long-term current use of immunosuppressive drug; Translations: [terminal manager current use of immunosuppressive drug] Unclassified (1 source) terminal manager (current) use of antimetabolite agent; Translations: [care home (current) use of antimetabolite agent] Onset: 9 Past or Other Problems Problem Classification Problem Date Documented Date Episodic/Chronic Deficiency and other anemia (2 sources) Anemia, unspecified; Translations: [Anemia, unspecified] Onset: 07-25-2022 Episodic Diseases of white blood cells (20 sources) Monocytosis; Translations: [Neutrophilia] Onset: 06-01-2020 Resolved: 01-24-2022 1 Chronic Malaise and fatigue (20 sources) Fatigue; Translations: [Other fatigue] Onset: 01-21-2019 01-21-2019 Episodic Other aftercare (3 sources) Long-term current use of systemic steroid; Translations: [terminal manager (current) use of systemic steroids] Onset: 01-21-2019 Resolved: 01-21-2019 01-21-2019 Episodic Other aftercare (3 sources) Long-term current use of bisphosphonates; Translations: [care home (current) use of bisphosphonates] Onset: 07-25-2022 Episodic Other aftercare (1 source) care home (current) use of bisphosphonates; Translations: [terminal manager (current) use of bisphosphonates] Onset: 07-25-2022 Episodic Other aftercare (2 sources) care home (current) use of non-steroidal anti-inflammatories (NSAID); Translations: [terminal manager (current) use of non-steroidal anti-inflammatories (nsaid)] Onset: 01-21-2019 Episodic Other aftercare (2 sources) Other 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terminal (current) drug therapy; Translations: [Other 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terminal (current) drug therapy] Onset: 01-21-2019 Episodic Other bone disease and musculoskeletal deformities (3 sources) Disorder of skeletal system; Translations: [Disorder of bone, unspecified] Onset: 01-21-2019 01-21-2019 Episodic Other connective tissue disease (20 sources) Subacromial bursitis; Translations: [Bursitis of unspecified shoulder] Onset: 01-21-2019 01-21-2019 Episodic Other connective tissue disease (20 sources) Tendinitis of hip; Translations: [Other specified enthesopathies of left lower limb, excluding foot] Onset: 01-21-2019 01-21-2019 Episodic Other connective tissue disease (20 sources) Biceps tendinitis; Translations: [Bicipital tendinitis, right shoulder] Onset: 01-21-2019 01-21-2019 Episodic Other connective tissue disease (3 sources) Bilateral rotator cuff tendinitis; Translations: [Other shoulder lesions, right shoulder] Onset: 01-21-2019 01-21-2019 Episodic Other connective tissue disease (3 sources) Pain of bilateral hands; Translations: [Pain in right hand] Onset: 01-21-2019 01-21-2019 Episodic Other connective tissue disease (3 sources) Bilateral hand weakness; Translations: [Other symptoms and signs involving the musculoskeletal system] Onset: 01-21-2019 01-21-2019 Episodic Other hematologic conditions (4 sources) ESR raised; Translations: [Elevated erythrocyte sedimentation rate] Onset: 06-12-2021 Resolved: 01-24-2022 Episodic Other nervous system disorders (3 sources) Bilateral carpal tunnel syndrome; Translations: [Carpal tunnel syndrome, bilateral upper limbs] Onset: 01-21-2019 Resolved: 03-18-2019 03-18-2019 Chronic Other nervous system disorders (20 sources) Paresthesia of hand ; Translations: [Paresthesia of both hands] Onset: 01-21-2019 01-21-2019 Episodic Other nervous system disorders (4 sources) Paresthesia of skin; Translations: [Disturbance of skin sensation] Onset: 01-21-2019 01-21-2019 Episodic Other nervous system disorders (20 sources) Bilateral carpal tunnel syndrome; Translations: [Bilateral carpal tunnel syndrome] Onset: 01-21-2019 Resolved: 03-18-2019 01-21-2019 Other non-traumatic joint disorders (20 sources) Shoulder pain; Translations: [Pain in right shoulder] Onset: 01-21-2019 01-21-2019 Episodic Other non-traumatic joint disorders (20 sources) Hip pain; Translations: [Pain in left hip] Onset: 01-21-2019 01-21-2019 Episodic Other non-traumatic joint disorders (20 sources) Pain in elbow; Translations: [Pain in right elbow] Onset: 01-21-2019 01-21-2019 Episodic Other non-traumatic joint disorders (3 sources) Bilateral wrist pain; Translations: [Pain in right wrist] Onset: 01-21-2019 01-21-2019 Episodic Other non-traumatic joint disorders (1 source) Bilateral chronic pain of upper limbs; Translations: [Pain in right shoulder] Onset: 01-21-2019 01-21-2019 Episodic Other nutritional; endocrine; and metabolic disorders (4 sources) Hypocalcemia; Translations: [Hypocalcemia] Onset: 06-01-2020 Resolved: 06-01-2020 06-01-2020 Chronic Other screening for suspected conditions (not mental disorders or infectious disease) (20 sources) Renal function tests abnormal; Translations: [Elevated C-reactive protein] Onset: 03-18-2019 Resolved: 07-25-2022 03-18-2019 Episodic Other screening for suspected conditions (not mental disorders or infectious disease) (3 sources) Elevated C-reactive protein; Translations: [CRP elevated] Onset: 12-04-2019 Resolved: 06-01-2020 12-04-2019 Other skin disorders (2 sources) Personal history of diseases of the skin and subcutaneous tissue; Translations: [Personal history of diseases of the skin and subcutaneous tissue] Onset: 01-21-2019 Episodic Spondylosis; intervertebral disc disorders; other back problems (20 sources) Thoracic back pain; Translations: [Neck pain] Onset: 01-21-2019 01-21-2019 Episodic Unclassified (20 sources) Long-term current use of systemic steroid; Translations: [care home current use of systemic steroids] Onset: 01-21-2019 Resolved: 01-21-2019 01-21-2019 Unclassified (1 source) care home (current) use of antimetabolite agent; Translations: [care home (current) use of antimetabolite agent] Onset: 07-25-2022 Results Test Name Value Interpretation Reference Range Facil ity Vital Signs Date Time Vital Sign Value Performing Clinician Faci lity 07-25-2022 14:30-0500 Diastolic blood pressure 74 mm[Hg] Pierre Engel Jr., DO Work Phone: [facility] 07-25-2022 14:30-0500 Systolic blood pressure 110 mm[Hg] Pierre Engel Jr., DO Work Phone: [facility] 01-24-2022 09:49-0400 Body height 165.1 cm Pierre Engel Jr., DO Work Phone: [facility] 01-24-2022 09:49-0400 Body mass index (BMI) [Ratio] 19.8 kg/m2 Pierre Engel Jr., DO Work Phone: [facility] 01-24-2022 09:49-0400 Body temperature 98.01 [degF] Pierre Engel Jr., DO Work Phone: [facility] 01-24-2022 09:49-0400 Body weight 53.98 kg Pierre Engel Jr., DO Work Phone: [facility] 01-24-2022 09:49-0400 Diastolic blood pressure 80 mm[Hg] Pierre Fernandezpriya Lm, DO Work Phone: [facility] 01-24-2022 09:49-0400 Heart rate 75 /min Pierre Fernandezprimitivoirineo KeeneLm, DO Work Phone: [facility] 01-24-2022 09:49-0400 SaO2% (BldA) [Mass fraction] 96 % Pierre Jimprimitivoirineo KeeneLm, DO Work Phone: [facility] 01-24-2022 09:49-0400 Systolic blood pressure 128 mm[Hg] Pierre Engel Lm, DO Work Phone: 1(818)026-016[address] [place] [address] 06-12-2021 14:11-0500 Body height 165.1 cm Pierre Engel Jr., DO Work Phone: 5(126)403-205917 [place] [address] 06-12-2021 14:11-0500 Body mass index (BMI) [Ratio] 19.8 kg/m2 Pierre Fernandezprimitivoirineo Gonzalez, DO Work Phone: 0(345)[phone] [place] [address] 06-12-2021 14:11-0500 Body weight 53.98 kg Pierre Fernandezprimitivoirineo Gonzalez, DO Work Phone: 5(598)872-865117 [place] [address] 06-12-2021 14:11-0500 Diastolic blood pressure 70 mm[Hg] Pierre Engel Jr., DO Work Phone: 1(617)052-381517 [place] [address] 06-12-2021 14:11-0500 Heart rate 98 /min Pierre Jimpriya Lm, DO Work Phone: [facility] 06-12-2021 14:11-0500 SaO2% (BldA) [Mass fraction] 99 % Pierre Engel Lm, DO Work Phone: 9(605)104-294317 [place] [address] 06-12-2021 14:11-0500 Systolic blood pressure 110 mm[Hg] Pierre Engel Jr., DO Work Phone: [facility] 06-01-2020 07:44-0500 BMI (Body Mass Index) 20.14 kg/m2 [facility] 06-01-2020 07:44-0500 Body Temperature 98.29 [degF] [facility] 06-01-2020 07:44-0500 Body weight 54.88 kg [facility] 06-01-2020 07:44-0500 BP Diastolic 62 mm[Hg] [facility] 06-01-2020 07:44-0500 BP Systolic 118 mm[Hg] [facility] 06-01-2020 07:44-0500 Height 165.1 cm [facility] 06-01-2020 07:44-0500 Pulse (Heart Rate) 71 /min [facility] 06-01-2020 07:44-0500 Pulse Oximetry 95 % [facility] 12-04-2019 09:28-0400 BMI (Body Mass Index) 20.14 kg/m2 [facility] 12-04-2019 09:28-0400 Body Temperature 97.59 [degF] [facility] 12-04-2019 09:28-0400 Body weight 54.88 kg [facility] 12-04-2019 09:28-0400 BP Diastolic 68 mm[Hg] [facility] 12-04-2019 09:28-0400 BP Systolic 142 mm[Hg] [facility] 12-04-2019 09:28-0400 Height 165.1 cm [facility] 12-04-2019 09:28-0400 Pulse (Heart Rate) 93 /min [facility] 12-04-2019 09:28-0400 Pulse Oximetry 93 % [facility] 07-24-2019 09:42-0500 BMI (Body Mass Index) 20.34 kg/m2 [facility] 07-24-2019 09:42-0500 Body Temperature 99.19 [degF] [facility] 07-24-2019 09:42-0500 Body weight 55.43 kg [facility] 07-24-2019 09:42-0500 BP Diastolic 88 mm[Hg] [facility] 07-24-2019 09:42-0500 BP Systolic 112 mm[Hg] [facility] 07-24-2019 09:42-0500 Height 165.1 cm [facility] 07-24-2019 09:42-0500 Pulse (Heart Rate) 98 /min [facility] 07-24-2019 09:42-0500 Pulse Oximetry 98 % [facility] 03-18-2019 12:51-0400 BMI (Body Mass Index) 20.9 kg/m2 [facility] 03-18-2019 12:51-0400 Body Temperature 98.01 [degF] [facility] 03-18-2019 12:51-0400 Body weight 56.97 kg [facility] 03-18-2019 12:51-0400 BP Diastolic 74 mm[Hg] [facility] 03-18-2019 12:51-0400 BP Systolic 112 mm[Hg] [facility] 03-18-2019 12:51-0400 Pulse (Heart Rate) 73 /min [facility] 03-18-2019 12:51-0400 Pulse Oximetry 93 % [facility] 01-21-2019 07:20-0400 BMI (Body Mass Index) 20.63 kg/m2 [facility] 01-21-2019 07:20-0400 Body weight 56.25 kg [facility] 01-21-2019 07:20-0400 Height 165.1 cm [facility] Encounters Encounter Date Encounter Type Care Provider Facility Start: 06-17-2023 ambulatory SUSAN Stone [facility] Start: 02-05-2023 ambulatory SUSAN Stone [facility] Start: 01-30-2023 [facility] Start: 12-03-2022 ambulatory SUSAN ZALDIVAR [facility] Start: 11-30-2022 ambulatory SUSAN Stone [facility] Start: 08-13-2022 ambulatory MARNIANETTE Stone [facility] Start: 07-27-2022 ambulatory MARNIANETTE Stone [facility] Start: 07-25-2022 End: 07-25-2022 Office outpatient visit 15 minutes Pierre Engel DO Work Phone: [facility] Rheumatology Procedures Date Procedure Procedure Detail Performing Clinician Start: 02-18-2019 RFLX QUANTIFERON TB GOLD PLUS Pierre Engel Work Phone: Start: 02-18-2019 Tb cell mediated ant ign respnse gamma interferon Pierre Engel Work Phone: Start: 02-05-2019 Electromyography Pierre Engel Work Phone: Start: 02-05-2019 Motor nerve conducti on studies Jesus Duong Work Phone: Start: 02-05-2019 EMG AND NERVE CONDUC TION (SCANNED) Pierre Engel Work Phone: Start: 01-21-2019 25 hydroxy includes fractions if performed Pierre Kwesi Engel Work Phone: Start: 01-21-2019 Angiotensin i-conver ting enzyme Pierre Engel Work Phone: Start: 01-21-2019 Assay of blood/uric acid Pierre Kwesi Engel Work Phone: Start: 01-21-2019 Assay of testosterone total Pierre Engel Work Phone: Start: 01-21-2019 Blood count complete automated Pierre Engel Work Phone: Start: 01-21-2019 C-reactive protein Eduardo darnell Kwesi [employer] Work Phone: Start: 01-21-2019 Comprehensive metabolic panel Pierre Kwesi [employer] Work Phone: Start: 01-21-2019 Creatine kinase total D avidarnell Kwesi [employer] Work Phone: Start: 01-21-2019 Cyanocobalamin vitamin b-12 Pierre [employer] Work Phone: Start: 01-21-2019 Hepatitis antibody h aab igm antibody Pierre [employer] Work Phone: Start: 01-21-2019 RED CELL FOLATE Pierre [employer]Oosco [employer] Work Phone: Start: 01-21-2019 Rheumatoid factor quantitative Pierre [employer] Work Phone: Start: 01-21-2019 Sedimentation rate r bc automated Pierre [employer] Work Phone: Start: 01-21-2019 Tb cell mediated ant ign respnse gamma interferon Pierre [employer] Work Phone: Plan of Treatment Date Care Activity Detail Author Start: 06-04-2028 Tetanus vaccination TETANUS [facility] Start: 01-30-2023 End: 01-30-2023 Patient encounter procedure 01/30/2023 Office Visit Rheumatology Pierre Engel Jr., DO [address] [place] [phone] [facility] Rheumatology Start: 07-25-2022 End: 07-25-2022 Patient encounter procedure 07/25/2022 Office Visit Rheumatology Pierre Engel Jr., DO [address] [place] [phone] [facility] Rheumatology Start: 07-13-2022 End: 01-24-2023 VITAMIN D (25-HYDROXY,TOTAL) VITAMIN D (25-HYDROXY,TOTAL) Lab Routine Psoriatic arthritis Scoliosis of lumbar spine, unspecified scoliosis type Psoriasis CRP elevated History of psoriatic arthritis care home current use of non-steroidal anti-inflammatories (NSAID) Long-term use of high-risk medication Methotrexate, 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[employer], current use Hypoglycemia Ulnar neuropathy of both upper extremities DDD (degenerative disc disease), cervical Lumbar degenerative disc disease Osteoarthritis of cervical spine, unspecified spinal osteoarthritis complication status Osteoarthritis of both hands, unspecified osteoarthritis type Osteoarthritis of lumbar spine, unspecified spinal osteoarthritis complication status Vitamin D deficiency Expected: 07/13/2022 (Approximate), Expires: 01/24/2023 [facility] Payers Date Payer Category Payer Medicare UHC MYCARE MEDIC ARE RX [facility] MYCARE MEDICARE RX [id number] 2019-Present [id number] 2019 Medicaid MEDICAID MEDICAI D xxxxxxxxxxxx 2019-Present [id number] 2019 Medicaid [id number] 2019 Medicaid MEDICAID MEDICAI D [id number] 2019-Present [address] [place] [address] [id number] 2019 Medicaid [id number] 2004 Medicare MEDICARE MEDICAR E A AND B [id number] 2004-Present [address] [place] [address] [id number] 2004 Medicare MEDICARE MEDICAR E A AND B [id number] 2004-Present [address] [place] [address] [id number] 2004 Medicare [id number] 2003 Medicare MEDICARE MEDICAR E A AND B xxxxxxxxxxx 2003-Present [place], [place] xxxxxxxxxxx [id number] 1973 Unknown [id number] 1973 Unknown [id number] 1973 Unknown [id number] 1973 Unknown [id number] 1973 Unknown [id number] 1973 Unknown [id number] 1973 Unknown [id number] 1973 Unknown [id number] 1973 Unknown [id number] 1973 Unknown [id number] Social History Date Type Detail Facility Start: 01-21-2019 End: 03-18-2019 Tobacco smoking status [facility] Current every day smoker [facility] End: 05-27-2021 History of tobacco use Cigarette Smoker [facility] Start: 01-21-2019 End: 07-25-2022 Cigarettes smoked current (pack per day) - Reported [facility] Start: 01-21-2019 End: 03-18-2019 Alcohol intake Never [facility] Start: 01-21-2019 End: 06-01-2020 History SDOH Alcohol Frequency 1 [facility] Start: 1975 Sex Assigned At Not on file [facility] [place] Start: 07-24-2019 End: 07-25-2022 Alcohol intake Lifetime non-drinker (finding) [facility] Start: 12-04-2019 End: 07-25-2022 Tobacco use and exposure Never used [facility] Exposure to SARS-CoV -2 (event) Not sure [facility] Start: 07-25-2022 Tobacco smoking stat us [facility] Ex-smoker [email or web address] End: 05-27-2021 History of tobacco use Current smoker [email or web address] History of Present illness Narrative 07-25-2022 Pierre Orosco Steffenirineo , DO - 07/25/2022 2:30 PM EST Note Date & Type Note Facility 07-25-2022 History of Presen t illness Narrative Images from the original note were not included. History of Present Illness Humira started 02/2020. Humira has been helping and not bothering there patient. Presence of Pain: denies pain/discomfort. Total time spent in this encounter was 28 minutes. Asthma is doing better. Joint pain is not much. Will have bad days but nothing major. Rash/Psoriasis is better. Humira is once a week. I have been told that patient is on a high risk medication as it either treats cancer or requires blood work every 2-3 months. Patient stopped smoking. Review of Systems Constitutional: Negative. HENT: Negative. Eyes: Negative. Respiratory: Asthma Cardiovascular: Negative. Gastrointestinal: Negative. Endocrine: Negative. Genitourinary: Negative. Musculoskeletal: Negative. Skin: psoriasis Allergic/Immunologic: Negative. Neurological: Negative. Hematological: Negative. Psychiatric/Behavioral: Negative. Vitals: There were no vitals taken for this visit. Physical Exam Vitals and nursing note reviewed. Constitutional: Appearance: Normal appearance. He is well-developed. HENT: Head: Normocephalic and atraumatic. Right Ear: External ear normal. Left Ear: External ear normal. Nose: Nose normal. Mouth/Throat: Mouth: Mucous membranes are moist. Pharynx: Oropharynx is clear. Eyes: Extraocular Movements: Extraocular movements intact and EOM normal. Conjunctiva/sclera: Conjunctivae normal. Pupils: Pupils are equal, round, and reactive to light. Cardiovascular: Rate and Rhythm: Normal rate and regular rhythm. Pulses: Radial pulses are 2+ on the right side and 2+ on the left side. Heart sounds: Normal heart sounds. Pulmonary: Effort: Pulmonary effort is normal. Breath sounds: Normal breath sounds. Abdominal: General: Bowel sounds are normal. Palpations: Abdomen is soft. Musculoskeletal: Right shoulder: Normal. Left shoulder: Normal. Right upper arm: Normal. Left upper arm: Normal. Right elbow: Normal. Left elbow: Decreased range of motion. Right forearm: Normal. Left forearm: Normal. Right wrist: Crepitus present. Decreased range of motion. Left wrist: Decreased range of motion. Right hand: Deformity present. Decreased range of motion. Left hand: Decreased range of motion. Hands: Cervical back: Neck supple. Right upper leg: Normal. Left upper leg: Normal. Right knee: Crepitus present. Decreased range of motion. Left knee: Crepitus present. Decreased range of motion. Right lower leg: Normal. Left lower leg: Normal. Right ankle: Decreased range of motion. Left ankle: Decreased range of motion. Legs: Feet: Skin: General: Skin is warm and dry. Comments: Psoriasis scalp - improved Neurological: Mental Status: He is alert and oriented to person, place, and time. Cranial Nerves: Cranial nerves 2-12 are intact. Sensory: Sensory deficit present. Motor: Motor function is intact. Comments: Positive tinel's B/L wrists . Psychiatric: Mood and Affect: Mood normal. Behavior: Behavior normal. Thought Content: Thought content normal. Judgment: Judgment normal. Neurological Exam Mental Status Alert. Oriented to person, place, and time. Cranial Nerves CN III, IV, : Extraocular movements intact bilaterally. Extraocular movements intact bilaterally. Pupils equal round and reactive to light bilaterally. Positive tinel's B/L wrists .. Assessment and Plan Encounter Diagnoses Name Primary? 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 Time was spent with the patient today in education in re: to all their medical conditions. A complete H&P&ROS was obtained and is either in this note or in the EHR. Please do not hesitate to contact me with any questions or concerns re: this patient. Past History Past medical, surgical, family, and social histories have been reviewed and updated with the patient today and are located elsewhere in the medical record. 2. Thank you for allowing me to participate in the care of your patient. With your permission I would like to F/U with your patient. 3. Negative Hep A&B&C serology, Lyme disease, KING, ANCA, Celiac, CCP, RF 4. CRP was elevated at 4.73 and is now negative at < 2.9 5. Patient told to stop smoking and is now vaping since 05/2022 6. Stop OTC Aleve and IBP 7. ESR was normal at 26 and still is at 24 8. Tramadol did not help 9. Enbrel stopped due severe boils 10. Humira stopped due to unknown reason - but is now back on it 11. Glucose was a little elevated at 105 and patient is going to F/U with PCP 12. Rec: derm eval and F/U 13. ALT is elevated at 68 14. Glucose was low at 70 15. 25 hydroxy Vit D level is low at 17.8 16. Rx given for Folic acid 1 mg to increase to 4 pills a day 17. Rx given for Dosokap to increase to 2 pills a day 18. Stop sulindac - no help 19. ALISE level was normal at 41 20. Lab on or about 10/20/2022 and every 3 months thereafer 21. Rx given for PT - patient declines has been there and is doing HEP and they told him there was nothing more they could do for him - patient declines again 22. Hold Methtorexate week before, week during and, week after any surgery. Hold Methotrexate any time have an infection can restart once off of ATB and/or antiviral and free of infection. Hold Methotrexate week before, week during and, week after any live attenuated vaccine (shingles). Monitor CBC/LFT/Renal func every 2-3 months on Methotrexate. Hold Methotrexate anytime there is an open wound and can restart once wound has healed 23. Hold Humira 2 weeks before and 2 weeks after any surgery or live vaccine (shingles). Hold Humira anytime have an infection can restart once of off ATB and/or antiviral and free of infection. Hold Humira if open wound can restart once wound has healed. 24. TB test was negative 26. Repeat LFT on or about 08/08/2022 27. Patient declines prednisone 28. Patient declines referral to OT - patient declines again 29. Repeat Vit D level on or about 10/25/2022 with copy to PCP 30. PTH was normal at 53.8 31. F/U with me in 6 months documented in this encounter [facility] History of Present illness Narrative 01-24-2022 Pierre Engel Jr., DO - 01/24/2022 9:30 AM EDT Note Date & Type Note Facility 01-24-2022 History of Presen t illness Narrative Images from the original note were not included. History of Present Illness Humira started 02/2020. Humira has been helping and not bothering there patient. Presence of Pain: denies pain/discomfort. Total time spent in this encounter was 27 minutes. Asthma is better. Joint pain is no. Psoriasis/Rash is better. Patient is here today for his 4 Month F/U. Patient states he has been doing good since his last appointment. Patient states the Humira is working good and he is not having joint pain, I have been told that patient is on a high risk medication as it either treats cancer or requires blood work every 2-3 months. humira is once a week. Patient is still smoking. Review of Systems Constitutional: Negative. HENT: Negative. Eyes: Negative. Respiratory: Asthma Cardiovascular: Negative. Gastrointestinal: Negative. Endocrine: Negative. Genitourinary: Negative. Musculoskeletal: Negative. Skin: psoriasis Allergic/Immunologic: Negative. Neurological: Negative. Hematological: Negative. Psychiatric/Behavioral: Negative. Vitals: Blood pressure 128/80, pulse 75, temperature 98 F (36.7 C), temperature source Temporal, height 1.651 m (5' 5 ), weight 54 kg (119 lb), SpO2 96 %. Physical Exam Vitals and nursing note reviewed. Constitutional: Appearance: Normal appearance. He is well-developed. HENT: Head: Normocephalic and atraumatic. Right Ear: External ear normal. Left Ear: External ear normal. Nose: Nose normal. Mouth/Throat: Mouth: Mucous membranes are moist. Pharynx: Oropharynx is clear. Comments: mask Eyes: Extraocular Movements: Extraocular movements intact and EOM normal. Conjunctiva/sclera: Conjunctivae normal. Pupils: Pupils are equal, round, and reactive to light. Cardiovascular: Rate and Rhythm: Normal rate and regular rhythm. Pulses: Radial pulses are 2+ on the right side and 2+ on the left side. Heart sounds: Normal heart sounds. Pulmonary: Effort: Pulmonary effort is normal. Abdominal: General: Bowel sounds are normal. Palpations: Abdomen is soft. Musculoskeletal: Right shoulder: Normal. Left shoulder: Normal. Right upper arm: Normal. Left upper arm: Normal. Right elbow: Decreased range of motion. Left elbow: Decreased range of motion. Right forearm: Normal. Left forearm: Normal. Right wrist: Crepitus present. Decreased range of motion. Left wrist: Decreased range of motion. Right hand: Deformity present. Decreased range of motion. Left hand: Decreased range of motion. Hands: Cervical back: Neck supple. Right upper leg: Normal. Left upper leg: Normal. Right knee: Crepitus present. Decreased range of motion. Left knee: Crepitus present. Decreased range of motion. Right lower leg: Normal. Left lower leg: Normal. Right ankle: Decreased range of motion. Left ankle: Decreased range of motion. Legs: Feet: Skin: General: Skin is warm and dry. Comments: Psoriasis scalp - improved Nicotine staining L hand Neurological: Mental Status: He is alert and oriented to person, place, and time. Cranial Nerves: Cranial nerves are intact. Sensory: Sensory deficit present. Motor: Motor function is intact. Comments: Positive tinel's B/L wrists . Psychiatric: Mood and Affect: Mood normal. Behavior: Behavior normal. Thought Content: Thought content normal. Judgment: Judgment normal. Neurological Exam Mental Status Alert. Oriented to person, place, and time. Cranial Nerves CN III, IV, : Extraocular movements intact bilaterally. Extraocular movements intact bilaterally. Pupils equal round and reactive to light bilaterally. Positive tinel's B/L wrists .. Assessment and Plan Encounter Diagnoses Name Primary? 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 Time was spent with the patient today in education in re: to all their medical conditions. A complete H&P&ROS was obtained and is either in this note or in the EHR. Please do not hesitate to contact me with any questions or concerns re: this patient. Past History Past medical, surgical, family, and social histories have been reviewed and updated with the patient today and are located elsewhere in the medical record. 2. Thank you for allowing me to participate in the care of your patient. With your permission I would like to F/U with your patient. 3. Negative Hep A&B&C serology, Lyme disease, KING, ANCA, Celiac, CCP, RF 4. CRP was elevated at 17.60 and still is at 4.73 5. Patient told to stop smoking 6. Stop OTC Aleve and IBP 7. ESR was elevated at 45 and is now normal at 26 8. Tramadol did not help 9. Enbrel stopped due severe boils 10. Humira stopped due to unknown reason - but is now back on it 11. Glucose was a little elevated at 105 and patient is going to F/U with PCP 12. Rec: derm eval and F/U 13. WBC was elevated at 16.2 and is now normal at 8.9 14. Glucose was low at 69 and still is at 70 15. Calcium was low at 8.3. and patient is going to F/U with PCP - patient was started on calcium by PCP - ionized calcium was normal at 5.1. calcium is low at 8.2 and patient is going to F/U with PCP although ionized calcium is normla at 5.0 16. Patient is using Trellegy inhaler 17. Dosoquin has been increased to 2 pills a day 18. Stop sulindac - non help 19. ALISE level was normal at 41 20. Lab on or about 03/12/2022 and every 2 months thereafer 21. Rx given for PT - patient declines has been there and is doing HEP and they told him there was nothing more they could do for him - patient declines again 22. Hold Methtorexate week before, week during and, week after any surgery. Hold Methotrexate any time have an infection can restart once off of ATB and/or antiviral and free of infection. Hold Methotrexate week before, week during and, week after any live attenuated vaccine (shingles). Monitor CBC/LFT/Renal func every 2-3 months on Methotrexate. Hold Methotrexate anytime there is an open wound and can restart once wound has healed 23. Hold Humira 2 weeks before and 2 weeks after any surgery or live vaccine (shingles). Hold Humira anytime have an infection can restart once of off ATB and/or antiviral and free of infection. Hold Humira if open wound can restart once wound has healed. 24. TB test was negative 26. Low 25 hydroxy Vit D level at 22.1 with normal 25 hydroxy vit D level 27. Patient declines prednisone 28. Patient declines referral to OT - patient declines again 29. Repeat Vit D level on or about 30. PTH is normal at 53.8 31. Rx given for Daypro 1 or 2 pills a day 32. Rx given for Methotrexate 9 pills one day a week 33. F/U with me in 6 months documented in this encounter [facility] History of Present illness Narrative 06-12-2021 Pierre Engel Jr., DO - 06/12/2021 2:30 PM EST Note Date & Type Note Facility 06-12-2021 History of Presen t illness Narrative Images from the original note were not included. History of Present Illness Humira started 02/2020. Humira has been helping and not bothering there patient. Presence of Pain: denies pain/discomfort. Total time spent in this encounter was 20 minutes. Asthma is not too bad. Joint pain is minor but mostly from the weather. Psoriasis is better. Patient is here for a 4 Month F/U. Patient states that he is having stiffness in his joints. Patient states that the weather causes him to have more stiffness. Patient states that he has good days and bad days. Patient is still smoking. I have been told that patient is on a high risk medication as it either treats cancer or requires blood work every 2-3 months. humira is once a week. Review of Systems Constitutional: Negative. HENT: Negative. Eyes: Negative. Respiratory: Asthma Cardiovascular: Negative. Gastrointestinal: Negative. Endocrine: Negative. Genitourinary: Negative. Musculoskeletal: Positive for arthralgias. Skin: psoriasis Allergic/Immunologic: Negative. Neurological: Negative. Hematological: Negative. Psychiatric/Behavioral: Negative. Vitals: Blood pressure 110/70, pulse 98, height 1.651 m (5' 5 ), weight 54 kg (119 lb), SpO2 99 %. Physical Exam Vitals and nursing note reviewed. Constitutional: Appearance: Normal appearance. He is well-developed. HENT: Head: Normocephalic and atraumatic. Right Ear: External ear normal. Left Ear: External ear normal. Nose: Nose normal. Mouth/Throat: Mouth: Mucous membranes are moist. Pharynx: Oropharynx is clear. Comments: mask Eyes: Extraocular Movements: Extraocular movements intact and EOM normal. Conjunctiva/sclera: Conjunctivae normal. Pupils: Pupils are equal, round, and reactive to light. Cardiovascular: Rate and Rhythm: Normal rate and regular rhythm. Pulses: Radial pulses are 2+ on the right side and 2+ on the left side. Heart sounds: Normal heart sounds. Pulmonary: Effort: Pulmonary effort is normal. Abdominal: General: Bowel sounds are normal. Palpations: Abdomen is soft. Musculoskeletal: Right shoulder: Normal. Left shoulder: Normal. Right upper arm: Normal. Left upper arm: Normal. Right elbow: Normal. Left elbow: Decreased range of motion. Right forearm: Normal. Left forearm: Normal. Right wrist: Crepitus present. Decreased range of motion. Left wrist: Decreased range of motion. Right hand: Deformity present. Decreased range of motion. Left hand: Decreased range of motion. Hands: Cervical back: Neck supple. Right upper leg: Normal. Left upper leg: Normal. Right knee: Crepitus present. Decreased range of motion. Left knee: Crepitus present. Decreased range of motion. Right lower leg: Normal. Left lower leg: Normal. Right ankle: Decreased range of motion. Left ankle: Decreased range of motion. Legs: Feet: Skin: General: Skin is warm and dry. Comments: Psoriasis scalp - improved Nicotine staining L hand Neurological: Mental Status: He is alert and oriented to person, place, and time. Cranial Nerves: Cranial nerves are intact. Sensory: Sensory deficit present. Motor: Motor function is intact. Comments: Positive tinel's B/L wrists . Psychiatric: Mood and Affect: Mood normal. Behavior: Behavior normal. Thought Content: Thought content normal. Judgment: Judgment normal. Neurological Exam Mental Status Alert. Cranial Nerves CN III, IV, : Extraocular movements intact bilaterally. Extraocular movements intact bilaterally. Pupils equal round and reactive to light bilaterally. Assessment and Plan Encounter Diagnoses Name Primary? 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 Time was spent with the patient today in education in re: to all their medical conditions. A complete H&P&ROS was obtained and is either in this note or in the EHR. Please do not hesitate to contact me with any questions or concerns re: this patient. Past History Past medical, surgical, family, and social histories have been reviewed and updated with the patient today and are located elsewhere in the medical record. 2. Thank you for allowing me to participate in the care of your patient. With your permission I would like to F/U with your patient. 3. Negative Hep A&B&C serology, Lyme disease, KING, ANCA, Celiac, CCP, RF 4. CRP was elevated at 3.34 and still is at 17.60 (different scale) 5. Patient told to stop smoking 6. Stop OTC Aleve and IBP 7. ESR was normal at 17 and is now elevated at 45 8. Tramadol did not help 9. Enbrel stopped due severe boils 10. Humira stopped due to unknown reason - but is now back on it 11. Glucose was a little elevated at 105 and patient is going to F/U with PCP 12. Rec: derm eval and F/U 13. WBC is elevated at 16.2 14. Glucose was low at 69 and patient is going to F/U with PCP 15. Calcium was low at 8.3. and patient is going to F/U with PCP - patient was started on calcium by PCP - ionized calcium is normal at 5.1 16. Rx given to increase Methotrexate to 9 pills one day a week 17. Dosoquin is 1 pill a day 18. Stop sulindac - non help 19. ALISE level was normal at 41 20. Lab on or about 07/31/2021 and every 2 months thereafer 21. Rx given for PT - patient declines has been there and is doing HEP and they told him there was nothing more they could do for him - patient declines again 22. Hold Methtorexate week before, week during and, week after any surgery. Hold Methotrexate any time have an infection can restart once off of ATB and/or antiviral and free of infection. Hold Methotrexate week before, week during and, week after any live attenuated vaccine (shingles). Monitor CBC/LFT/Renal func every 2-3 months on Methotrexate. Hold Methotrexate anytime there is an open wound and can restart once wound has healed 23. Hold Humira 2 weeks before and 2 weeks after any surgery or live vaccine (shingles). Hold Humira anytime have an infection can restart once of off ATB and/or antiviral and free of infection. Hold Humira if open wound can restart once wound has healed. 24. TB test was negative 26. F/U with me in 4 months 27. Patient declines prednisone 28. Patient declines referral to OT - patient declines again 29. Repeat Vit D level on or about 07/31/2021 with copy to PCP documented in this encounter [facility] Evaluation note Note Date & Type Note Facility documented in this encounter [facility] Evaluation note Note Date & Type Note Facility documented in this encounter [facility] Evaluation note Note Date & Type Note Facility documented in this encounter [facility] Reason for Referral Status Reason Specialty Diagnoses / Procedures Referred By Contact Referred To Contact New Request Neurology Diagnoses Psoriatic arthritis Methotrexate, care home, current use Long-term use of high-risk medication care home current use of non-steroidal anti-inflammatories (NSAID) History of psoriatic arthritis Fatigue, unspecified type Asthma, unspecified asthma severity, unspecified whether complicated, unspecified whether persistent Paresthesia of both hands Dorsalgia Cervicalgia Bilateral carpal tunnel syndrome Weakness of both hands Tendonitis of both rotator cuffs Subacromial bursitis Right elbow pain Hip pain, left Hip flexor tendonitis, left Disorder of bone and cartilage Chronic pain of both shoulders Bilateral wrist pain Bilateral hand pain Bilateral biceps tendonitis Pierre Engel Jr., [address] [place] [address] Jesus Duong MD [address] [place] [address] Status Reason Specialty Diagnoses / Procedures Referred By Contact Referred To Contact New Request Diagnoses Psoriatic arthritis Methotrexate, 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, current use Long-term use of high-risk medication 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) History of psoriatic arthritis Fatigue, unspecified type Asthma, unspecified asthma severity, unspecified whether complicated, unspecified whether persistent Paresthesia of both hands Dorsalgia Cervicalgia Bilateral carpal tunnel syndrome Weakness of both hands Tendonitis of both rotator cuffs Subacromial bursitis Right elbow pain Hip pain, left Hip flexor tendonitis, left Disorder of bone and cartilage Chronic pain of both shoulders Bilateral wrist pain Bilateral hand pain Bilateral biceps tendonitis Procedures EMG & NERVE CONDUCTION Pierre Engel Jr., DO [address] [place] [address] Status Reason Specialty Diagnoses / Procedures Referre d By Contact Referred To Contact Closed Diagnoses Psoriatic arthritis Methotrexate, 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, current use Long-term use of high-risk medication care home current use of non-steroidal anti-inflammatories (NSAID) History of psoriatic arthritis Fatigue, unspecified type Asthma, unspecified asthma severity, unspecified whether complicated, unspecified whether persistent Paresthesia of both hands Dorsalgia Cervicalgia Bilateral carpal tunnel syndrome Weakness of both hands Tendonitis of both rotator cuffs Subacromial bursitis Right elbow pain Hip pain, left Hip flexor tendonitis, left Disorder of bone and cartilage Chronic pain of both shoulders Bilateral wrist pain Bilateral hand pain Bilateral biceps tendonitis Procedures EMG & NERVE CONDUCTION Pierre Engel Jr. DO [address] [place] [id number] Jesus Duong MD [address] [place] [id number] History of Present Illness * Toro Gonzalez, Pierre Orosco, DO - 01/21/2019 7:15 AM EDT History of Present Illness Presence of Pain: complains of pain/discomfort Pain Location: (Everywhere) Select Pain Scale: DVPRS (Defense and Veterans Pain Rating Scale) (Adult- Cognitively Intact) DVPRS: Rest: 6- moderate pain DVPRS: Activity: 6- moderate pain Select Pain Scale: DVPRS (Defense and Veterans Pain Rating Scale) (Adult- Cognitively Intact) Pain Frequency: constant Pain Quality: aching Due to complex issues I spent at least 54 minutes in face to face time with patient, more than 50% of that time was spent on counseling and coordination of care. Patient is beingevaluated for an unstable chronic illness that increase morbidity and mortality. Due to patient's coexisting health problems and co-morbidities treatment is and will be very difficult. Patient was referred by Dr. Zaldivar for psoriatic arthritis. Patient states she is having joint pain everywhere. Patient states he was on Humira which was working. Patient states he has tried Enbrel in the past which caused him to have severe boils. Patient has been on OTC IBP and Aleve. Dx with psoriatic arthritis 2010. Neck and back and shoulder and R elbow pain. B/L hand and wrist pain and paresthesias and weakness. Left hip pain. Review of Systems Constitutional: Positive for fatigue. HENT: Negative. Eyes: Negative. Respiratory: Asthma Cardiovascular: Negative. Gastrointestinal: Negative. Endocrine: Negative. Genitourinary: Negative. Musculoskeletal: Positive for arthralgias, back pain, joint swelling, neck pain and neck stiffness. Skin: Positive for rash. psoriasis Allergic/Immunologic: Negative. Neurological: Positive for weakness and numbness. Hematological: Negative. Psychiatric/Behavioral: The patient is nervous/anxious. Vitals: Height 1.651 m (5' 5 ), weight 56.2 kg (124 lb). Physical Exam Constitutional: He is oriented to person, place, and time. He appears well- developed and well-nourished. HENT: Head: Normocephalic and atraumatic. Right Ear: External ear normal. Left Ear: External ear normal. Nose: Nose normal. Mouth/Throat: Oropharynx is clear and moist. Eyes: Pupils are equal, round, and reactive to light. Conjunctivae and EOM are normal. Neck: Neck supple. Cardiovascular: Normal rate, regular rhythm, normal heart sounds and intact distal pulses. Pulses: Carotid pulses are 2+ on the right side, and 2+ on the left side. Radial pulses are 2+ on the right side, and 2+ on the left side. Dorsalis pedis pulses are 2+ on the right side, and 2+ on the left side. Posterior tibial pulses are 2+ on the right side, and 2+ on the left side. No carotid of subclavian bruits Pulmonary/Chest: Effort normal and breath sounds normal. Abdominal: Soft. Bowel sounds are normal. Musculoskeletal: Right shoulder: He exhibits decreased range of motion and tenderness. Left shoulder: He exhibits decreased range of motion and tenderness. Right elbow: He exhibits decreased range of motion, swelling and effusion. Tenderness found. Left elbow: Normal. Right wrist: He exhibits decreased range of motion and tenderness. Left wrist: He exhibits decreased range of motion and tenderness. Right hip: He exhibits decreased range of motion. Left hip: He exhibits decreased range of motion and tenderness. Right knee: He exhibits decreased range of motion. Left knee: He exhibits decreased range of motion. Right ankle: Normal. Left ankle: He exhibits decreased range of motion. Cervical back: He exhibits decreased range of motion and tenderness. Thoracic back: Normal. Lumbar back: He exhibits decreased range of motion and tenderness. Right upper arm: He exhibits tenderness. Left upper arm: He exhibits tenderness. Right forearm: Normal. Left forearm: Normal. Right hand: He exhibits decreased range of motion, tenderness and deformity. Left hand: He exhibits decreased range of motion and tenderness. Hands: Right upper leg: Normal. Left upper leg: Normal. Legs: Right foot: Normal. Left foot: Normal. Feet: Neurological: He is alert and oriented to person, place, and time. A sensory deficit is present. Hedisplays a negative Romberg sign. Reflex Scores: Tricep reflexes are 1+ on the right side and 1+ on the left side. Bicep reflexes are 1+ on the right side and 1+ on the left side. Brachioradialis reflexes are 1+ on the right side and 1+ on the left side. Patellar reflexes are 2+ on the right side and 2+ on the left side. Achilles reflexes are 2+ on the right side and 2+ on the left side. Positive tinel's B/L wrists with decreased air purifier servicer strength B/L hands Skin: Skin is warm and dry. Rash noted. Psoriasis scalp Psychiatric: He has a normal mood and affect. His behavior is normal. Judgment and thought content normal. Nursing note and vitals reviewed. Neurologic Exam Mental Status Oriented to person, place, and time. Cranial Nerves CN III, IV, Pupils are equal, round, and reactive to light. Extraocular motions are normal. Gait, Coordination, and Reflexes Reflexes Right brachioradialis: 1+ Left brachioradialis: 1+ Right biceps: 1+ Left biceps: 1+ Right triceps: 1+ Left triceps: 1+ Right patellar: 2+ Left patellar: 2+ Right achilles: 2+ Left achilles: 2+ Assessment and Plan Encounter Diagnoses Name Primary? Psoriatic arthritis Yes Methotrexate, care home, current use Long-term use of high-risk medication 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) History of psoriatic arthritis Fatigue, unspecified type Asthma, unspecified asthma severity, unspecified whether complicated, unspecified whether persistent Paresthesia of both hands Dorsalgia Cervicalgia Bilateral carpal tunnel syndrome Weakness of both hands Tendonitis of both rotator cuffs Subacromial bursitis Right elbow pain Hip pain, left Hip flexor tendonitis, left Disorder of bone and cartilage Chronic pain of both shoulders Bilateral wrist pain Bilateral hand pain Bilateral biceps tendonitis 1. Time was spent with the patient today in education in re: to all their medical conditions. A complete H&P&ROS was obtained and is either in this note or in the EHR. Please do not hesitate to contact me with any questions or concerns re: this patient. Past History Past medical, surgical, family, and social histories have been reviewed and updated with the patient today and are located elsewhere in the medical record. 2. Thank you for allowing me to participate in the care of your patient. With your permission I would like to F/U with your patient. 3. Differenetial Diagnosis includes but is not limited to Autoimmune Disease, Connective Tissue Disease, Collagen Vascular Disorder, Infection, and Neoplasm. 4. Lab and x-ray and F/U with me in 2 weeks after EMG 5. Patient told to stop smoking 6. Stop OTC Aleve and IBP 7. Rx given for Sulindac 200 mg 1 or 2 pills a day 8. Tramadol did not help 9. Enbrel stopped due severe boils 10. Humira stopped due to unknown reason 11. Patient given educational material on Psoriatic Arthritis in the form of a pamphlet from the arthritis foundation 12. Rec: derm eval and F/U 13. If neck pain continues rec: eval by spinal surgery and/or chronic pain management 14. If patient continues to have trouble with back pain would rec: eval by spinal surgery and/or chronic pain management 15. If shoulder and elbow and wrist and hand and hip problems continue rec: ortho eval 16. Patient given educational material on bursitis and tendonitis in the form of a pamphlet from the arthritis foundation. Patient told that PT would be the cornerstone of treatment 17. Patient given educational material on OA in the from of a pamphlet from the arthritis foundation. Patient told that PT and keeping ideal body wt would be the cornerstone of treatment 18. Educational material was given to the patient on CTS in the form of a pamphlet from the arthritis foundation 19. EMG/NCV B/L UE B/L hand and wrist pain and paresthesias and weakness R/O CTS 20. Rx given for B/L wrist splints for B/L CTS 21. If CTS problems continue rec: surgical eval 22. Rx given for PT - patient declines has been there and is doing HEP and they told him there was nothing more they could do for him 23. Hold Methtorexate week before, week during and, week after any surgery. Hold Methotrexate any time have an infection can restart once off of ATB and/or antiviral and free of infection. Hold Methotrexate week before, week during and, week after any live attenuated vaccine (shingles). Monitor CBC/LFT/Renal func every 2-3 months on Methotrexate. Hold Methotrexate anytime there is an open wound and can restart once wound has healed 24. Hold Humira 2 weeks before and 2 weeks after any surgery or live vaccine (shingles). Hold Humira anytime have an infection can restart once of off ATB and/or antiviral and free of infection. HoldHumira if open wound can restart once wound has healed. 25. TB test today 26. Rx given for Humira 27. Humira ambassador 28. Rx given for Methotrexate 3 pills one day a week 29. Rx given for Folic acid 1 mg a day 30. Patient declines prednisone 31. Patient declines referral to OT documented in this encounter* Pierre Engel Jr., - 03/18/2019 12:30 PM EDT History of Present Illness Presence of Pain: complains of pain/discomfort Select Pain Scale: DVPRS (Defense and Veterans Pain Rating Scale) (Adult- Cognitively Intact) DVPRS: Rest: 5- moderate pain DVPRS: Activity: 5- moderate pain Select Pain Scale: DVPRS (Defense and Veterans Pain Rating Scale) (Adult- Cognitively Intact) . Due to complex issues I spent at least 30 minutes in face to face time with patient, more than 50% of that time was spent on counseling and coordination of care. Patient seen as ad on patient today. Energy level is dickson poor. Joint pain is usually yeah. Back pain is oh yeah. Joint swelling is no. Neck pain is a little bit. Psoriasis is doing better - small improvement - 3 out of 10. No paresthesias occasional RLE radiculopathy. Weakness is sometimes on and off. Patient is here today for their 2 week EMG F/u. Patient states that he has been okay since his last appointment. Nothing new. Patient is still smoking. I have been told that patient is on a high risk medication as it either treats canceror requires blood work every 2-3 months. B/L wrist splints are not helping. Patient still is not onHumira. Review of Systems Constitutional: Positive for fatigue. HENT: Negative. Eyes: Negative. Respiratory: Asthma Cardiovascular: Negative. Gastrointestinal: Negative. Endocrine: Negative. Genitourinary: Negative. Musculoskeletal: Positive for arthralgias, back pain, neck pain and neck stiffness. Skin: Positive for rash. psoriasis Allergic/Immunologic: Negative. Neurological: Positive for weakness and numbness. Hematological: Negative. Psychiatric/Behavioral: Negative. Vitals: Blood pressure 112/74, pulse 73, temperature 98 F (36.7 C), temperature source Temporal, weight 57 kg (125 lb 9.6 oz), SpO2 93 %. Physical Exam Constitutional: He is oriented to person, place, and time. He appears well- developed and well-nourished. HENT: Head: Normocephalic and atraumatic. Right Ear: External ear normal. Left Ear: External ear normal. Nose: Nose normal. Mouth/Throat: Oropharynx is clear and moist. Eyes: Pupils are equal, round, and reactive to light. Conjunctivae and EOM are normal. Neck: Neck supple. Cardiovascular: Normal rate, regular rhythm and normal heart sounds. Pulses: Radial pulses are 2+ on the right side, and 2+ on the left side. Pulmonary/Chest: Effort normal and breath sounds normal. Abdominal: Soft. Bowel sounds are normal. Musculoskeletal: Right shoulder: He exhibits decreased range of motion and tenderness. Left shoulder: He exhibits decreased range of motion and tenderness. Right elbow: He exhibits decreased range of motion, swelling and effusion. Tenderness found. Left elbow: Normal. Right wrist: He exhibits decreased range of motion and tenderness. Left wrist: He exhibits decreased range of motion and tenderness. Right knee: He exhibits decreased range of motion. Left knee: He exhibits decreased range of motion. Right ankle: Normal. Left ankle: He exhibits decreased range of motion. Right upper arm: He exhibits tenderness. Left upper arm: He exhibits tenderness. Right forearm: Normal. Left forearm: Normal. Right hand: He exhibits decreased range of motion, tenderness and deformity. Left hand: He exhibits decreased range of motion and tenderness. Hands: Right upper leg: Normal. Left upper leg: Normal. Right lower leg: Normal. Left lower leg: Normal. Legs: Feet: Neurological: He is alert and oriented to person, place, and time. A sensory deficit is present. Hedisplays a negative Romberg sign. Positive tinel's B/L wrists with decreased air purifier servicer strength B/L hands Skin: Skin is warm and dry. Rash noted. Psoriasis scalp Psychiatric: He has a normal mood and affect. His behavior is normal. Judgment and thought content normal. Nursing note and vitals reviewed. Neurologic Exam Mental Status Oriented to person, place, and time. Cranial Nerves CN III, IV, Pupils are equal, round, and reactive to light. Extraocular motions are normal. Assessment and Plan Encounter Diagnoses Name Primary? Psoriatic arthritis Yes care home current use of non-steroidal anti-inflammatories (NSAID) History of psoriatic arthritis Long-term use of high-risk medication Methotrexate, care home, current use Abnormal renal function test Ulnar neuropathy of both upper extremities Osteoarthritis of both hands, unspecified osteoarthritis type Scoliosis of lumbar spine, unspecified scoliosis type Osteoarthritis of lumbar spine, unspecified spinal osteoarthritis complication status Lumbar degenerative disc disease DDD (degenerative disc disease), cervical Osteoarthritis of cervical spine, unspecified spinal osteoarthritis complication status 1. Time was spent with the patient today in education in re: to all their medical conditions. A complete H&P&ROS was obtained and is either in this note or in the EHR. Please do not hesitate to contact me with any questions or concerns re: this patient. Past History Past medical, surgical, family, and social histories have been reviewed and updated with the patient today and are located elsewhere in the medical record. 2. Thank you for allowing me to participate in the care of your patient. With your permission I would like to F/U with your patient. 3. Negative Hep A&B&C serology, Lyme disease, KING, ANCA, Celiac, CCP, RF 4. CRP is negative at < 8.9 5. Patient told to stop smoking 6. Stop OTC Aleve and IBP 7. ESR is normal at 26 8. Tramadol did not help 9. Enbrel stopped due severe boils 10. Humira stopped due to unknown reason 11. Glucose is a little elevated at 105 and patient is going to F/U with PCP 12. Rec: derm eval and F/U 13. If neck pain continues rec: eval by spinal surgery and/or chronic pain management 14. If patient continues to have trouble with back pain would rec: eval by spinal surgery and/or chronic pain management 15. If shoulder and elbow and wrist and hand and hip problems continue rec: ortho eval 16. CLAIM REP is elevated at 1.29 with GFR > 60 17. Vit B12 is elevated at 1,736 and patient told could cut B12 intake in half 18. Vit B6 is elevated at 49.8 and patient told could cut Vit B6 intake in half 19. ALISE level is normal at 41 20. Rx given to increase Methotrexate to 6 pills one day a week 21. Lab on or about 04/20/19 and every 2 months thereafter 22. Rx given for PT - patient declines has been there and is doing HEP and they told him there was nothing more they could do for him 23. Hold Methtorexate week before, week during and, week after any surgery. Hold Methotrexate any time have an infection can restart once off of ATB and/or antiviral and free of infection. Hold Methotrexate week before, week during and, week after any live attenuated vaccine (shingles). Monitor CBC/LFT/Renal func every 2-3 months on Methotrexate. Hold Methotrexate anytime there is an open wound and can restart once wound has healed 24. Hold Humira 2 weeks before and 2 weeks after any surgery or live vaccine (shingles). Hold Humira anytime have an infection can restart once of off ATB and/or antiviral and free of infection. HoldHumira if open wound can restart once wound has healed. 25. TB test is negative 26. Rx given for Humira - again 27. Humira ambassador 28. F/U with me in 4 months 29. Patient declines prednisone 30. Patient declines referral to OT documented in this encounter* Pierre Engel Jr., DO - 07/24/2019 10:00 AM EST History of Present Illness Humira started 02/2020. Humira is helping and not bothering there patient. Presence of Pain: complains of pain/discomfort Pain Location: (Everywhere) Select Pain Scale: DVPRS (Defense and Veterans Pain Rating Scale) (Adult- Cognitively Intact) DVPRS: Rest: 4- mild pain DVPRS: Activity: 4- mild pain Select Pain Scale: DVPRS (Defense and Veterans Pain Rating Scale) (Adult- Cognitively Intact) Pain Frequency: constant Pain Quality: aching . Energy level is still low. Patient is being evaluated for an unstable chronic illness that increase morbidity and mortality. Due to complex issues I spent at least 24 minutes in face to face time with patient, more than 50% of that time was spent on counseling and coordination of care. Asthma is doing pretty good considering the time of year. Joint pain is not today. Back pain is no - starting to get better. Patient is seeing pain doctor. Neck pain is here and there but nothing that hasn't been there. Paresthesias is no but weak sometimes in the legs - occasional quads and knee joints. Psoriasis is doing pretty good - couple little spots on the scalp. Patient is here today for his 4 Month F/U. Patient states he has been doing okay since his last appointment. Patientstates he is having SHYLA leg weakness. Patient states he is having extreme fatigue and no energy everyday. Patient states he notices some approvment with the Humira. Patient is still smoking. I have been told that patient is on a high risk medication as it either treats cancer or requires blood workevery 2-3 months. Patient is not using wrist splints. Humira is lasting 2 weeks. Patient did not get lab as instructed. Review of Systems Constitutional: Positive for fatigue. HENT: Negative. Eyes: Negative. Respiratory: Asthma Cardiovascular: Negative. Gastrointestinal: Negative. Endocrine: Negative. Genitourinary: Negative. Musculoskeletal: Positive for back pain, neck pain and neck stiffness. Skin: Positive for rash. psoriasis Allergic/Immunologic: Negative. Neurological: Positive for weakness. Hematological: Negative. Psychiatric/Behavioral: Negative. Vitals: Blood pressure 112/88, pulse 98, temperature 99.2 F (37.3 C), temperature source Temporal, height 1.651 m (5' 5 ), weight 55.4 kg (122 lb 3.2 oz), SpO2 98 %. Physical Exam Vitals signs and nursing note reviewed. Constitutional: Appearance: Normal appearance. He is well-developed. HENT: Head: Normocephalic and atraumatic. Right Ear: External ear normal. Left Ear: External ear normal. Nose: Nose normal. Mouth/Throat: Mouth: Mucous membranes are moist. Pharynx: Oropharynx is clear. Eyes: Extraocular Movements: Extraocular movements intact and EOM normal. Conjunctiva/sclera: Conjunctivae normal. Pupils: Pupils are equal, round, and reactive to light. Neck: Musculoskeletal: Neck supple. Cardiovascular: Rate and Rhythm: Normal rate and regular rhythm. Pulses: Radial pulses are 2+ on the right side and 2+ on the left side. Heart sounds: Normal heart sounds. Pulmonary: Effort: Pulmonary effort is normal. Breath sounds: Examination of the right-lower field reveals wheezing. Wheezing present. Abdominal: General: Bowel sounds are normal. Palpations: Abdomen is soft. Musculoskeletal: Right shoulder: He exhibits decreased range of motion. Left shoulder: He exhibits decreased range of motion. Right elbow: He exhibits decreased range of motion. Left elbow: He exhibits decreased range of motion. Right wrist: He exhibits decreased range of motion. Left wrist: He exhibits decreased range of motion. Right knee: He exhibits decreased range of motion. Left knee: He exhibits decreased range of motion. Right ankle: Normal. Left ankle: He exhibits decreased range of motion. Right upper arm: Normal. Left upper arm: Normal. Right forearm: Normal. Left forearm: Normal. Right hand: He exhibits decreased range of motion and deformity. Left hand: He exhibits decreased range of motion. Hands: Right upper leg: Normal. Left upper leg: Normal. Right lower leg: Normal. Left lower leg: Normal. Legs: Feet: Skin: General: Skin is warm and dry. Findings: Rash present. Comments: Psoriasis scalp - improved Neurological: Mental Status: He is alert and oriented to person, place, and time. Cranial Nerves: Cranial nerves are intact. Sensory: Sensory deficit present. Motor: Motor function is intact. Coordination: Coordination is intact. Gait: Gait is intact. Comments: Positive tinel's B/L wrists Psychiatric: Mood and Affect: Mood normal. Behavior: Behavior normal. Thought Content: Thought content normal. Judgment: Judgment normal. Neurologic Exam Mental Status Oriented to person, place, and time. Cranial Nerves CN III, IV, Pupils are equal, round, and reactive to light. Extraocular motions are normal. Gait, Coordination, and Reflexes Gait Gait: normal Assessment and Plan Encounter Diagnoses Name Primary? Psoriatic arthritis Yes Anemia, unspecified type History of psoriatic arthritis care home current use of non-steroidal anti-inflammatories (NSAID) Long-term use of high-risk medication Methotrexate, 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, current use Ulnar neuropathy of both upper extremities DDD (degenerative disc disease), cervical Lumbar degenerative disc disease Osteoarthritis of cervical spine, unspecified spinal osteoarthritis complication status Osteoarthritis of both hands, unspecified osteoarthritis type Osteoarthritis of lumbar spine, unspecified spinal osteoarthritis complication status Scoliosis of lumbar spine, unspecified scoliosis type Psoriasis 1. Time was spent with the patient today in education in re: to all their medical conditions. A complete H&P&ROS was obtained and is either in this note or in the EHR. Please do not hesitate to contact me with any questions or concerns re: this patient. Past History Past medical, surgical, family, and social histories have been reviewed and updated with the patient today and are located elsewhere in the medical record. 2. Thank you for allowing me to participate in the care of your patient. With your permission I would like to F/U with your patient. 3. Negative Hep A&B&C serology, Lyme disease, KING, ANCA, Celiac, CCP, RF 4. CRP was negative at < 8.9 and still is at < 8.9 5. Patient told to stop smoking 6. Stop OTC Aleve and IBP 7. ESR was normal at 26 and still is at 24 8. Tramadol did not help 9. Enbrel stopped due severe boils 10. Humira stopped due to unknown reason - but is now back on it 11. Glucose was a little elevated at 105 and patient is going to F/U with PCP 12. Rec: derm eval and F/U 13. Patient has Symbicort inhaler 14. Hgb is low at 13.9 15. Rx given for Sulindac 200 mg 1 or 2 pills a day 16. CLAIM REP was elevated at 1.29 with GFR > 60 and is now normal at 1.19 with GFR > 60 17. Rx given for Folic acid 1 mg 1 pill a day 18. Rx given for Methotrexate 6 pills one day a week 19. ALISE level was normal at 41 20. Rx given for Humira 21. Lab on or about 07/24/2019 and every 2 months thereafter 22. Rx given for PT - patient declines has been there and is doing HEP and they told him there was nothing more they could do for him - patient declines again 23. Hold Methtorexate week before, week during and, week after any surgery. Hold Methotrexate any time have an infection can restart once off of ATB and/or antiviral and free of infection. Hold Methotrexate week before, week during and, week after any live attenuated vaccine (shingles). Monitor CBC/LFT/Renal func every 2-3 months on Methotrexate. Hold Methotrexate anytime there is an open wound and can restart once wound has healed 24. Hold Humira 2 weeks before and 2 weeks after any surgery or live vaccine (shingles). Hold Humira anytime have an infection can restart once of off ATB and/or antiviral and free of infection. HoldHumira if open wound can restart once wound has healed. 25. TB test was negative 26. F/U with me in 4 months 27. Patient declines prednisone 28. Patient declines referral to OT - patient declines again documented in this encounter* Pierre Engel Jr. KwesiDO - 12/04/2019 9:30 AM EDT History of Present Illness Humira started 02/2020. Humira has been helping and not bothering there patient. Presence of Pain: complains of pain/discomfort Pain Location: back Select Pain Scale: DVPRS (Defense and Veterans Pain Rating Scale) (Adult- Cognitively Intact) DVPRS: Rest: 5- moderate pain DVPRS: Activity: 5- moderate pain Select Pain Scale: DVPRS (Defense and Veterans Pain Rating Scale) (Adult- Cognitively Intact) Pain Frequency: constant Pain Quality: aching Due to complex issues I spent at least 34 minutes in face to face time with patient, more than 50% of that time was spent on counseling and coordination of care. Patient is here for a 4Month F/U. Patient states he has back pain rates a 5. Patient states that methotrexate and humira is not as affected this past month. Patient states his psoriasis is coming back. Patient stateshis pain is coming back. Patient states he just has injections in his back a week ago and only helped a little bit. Patient is still smoking. Energy level is same. Asthma is the same. Weakness is no.Back pain is yes. Neck pain is a little bit. Joint pain is hips and knees. Psoriasis was doing really good and 1 month ago started flaring up again. I have been told that patient is on a high risk medication as it either treats cancer or requires blood work every 2-3 months. humira is lasting 4 days. Review of Systems Constitutional: Positive for fatigue. HENT: Negative. Eyes: Negative. Respiratory: Asthma Cardiovascular: Negative. Gastrointestinal: Negative. Endocrine: Negative. Genitourinary: Negative. Musculoskeletal: Positive for arthralgias, back pain, neck pain and neck stiffness. Skin: Positive for rash. psoriasis Allergic/Immunologic: Negative. Neurological: Negative. Hematological: Negative. Psychiatric/Behavioral: Negative. Vitals: There were no vitals taken for this visit. Physical Exam Vitals signs and nursing note reviewed. Constitutional: Appearance: Normal appearance. He is well-developed. HENT: Head: Normocephalic and atraumatic. Right Ear: External ear normal. Left Ear: External ear normal. Nose: Nose normal. Mouth/Throat: Mouth: Mucous membranes are moist. Pharynx: Oropharynx is clear. Comments: mask Eyes: Extraocular Movements: Extraocular movements intact and EOM normal. Conjunctiva/sclera: Conjunctivae normal. Pupils: Pupils are equal, round, and reactive to light. Neck: Musculoskeletal: Neck supple. Cardiovascular: Rate and Rhythm: Normal rate and regular rhythm. Pulses: Radial pulses are 2+ on the right side and 2+ on the left side. Heart sounds: Normal heart sounds. Pulmonary: Effort: Pulmonary effort is normal. Breath sounds: Normal breath sounds. Abdominal: General: Bowel sounds are normal. Palpations: Abdomen is soft. Musculoskeletal: Right shoulder: Normal. Left shoulder: Normal. Right elbow: He exhibits decreased range of motion. Left elbow: He exhibits decreased range of motion, swelling and effusion. Right wrist: He exhibits decreased range of motion. Left wrist: He exhibits decreased range of motion. Right knee: Normal. Left knee: Normal. Right ankle: He exhibits decreased range of motion. Left ankle: He exhibits decreased range of motion. Right upper arm: Normal. Left upper arm: Normal. Right forearm: Normal. Left forearm: Normal. Right hand: He exhibits decreased range of motion and deformity. Left hand: He exhibits decreased range of motion. Hands: Right upper leg: Normal. Left upper leg: Normal. Right lower leg: Normal. Left lower leg: Normal. Legs: Feet: Skin: General: Skin is warm and dry. Findings: Rash present. Comments: Psoriasis scalp - improved Neurological: Mental Status: He is alert and oriented to person, place, and time. Cranial Nerves: Cranial nerves are intact. Sensory: Sensory deficit present. Motor: Motor function is intact. Coordination: Coordination is intact. Gait: Gait is intact. Comments: Positive tinel's B/L wrists Psychiatric: Mood and Affect: Mood normal. Behavior: Behavior normal. Thought Content: Thought content normal. Judgment: Judgment normal. Neurologic Exam Mental Status Oriented to person, place, and time. Cranial Nerves CN III, IV, Pupils are equal, round, and reactive to light. Extraocular motions are normal. Gait, Coordination, and Reflexes Gait Gait: normal Assessment and Plan Encounter Diagnoses Name Primary? Psoriatic arthritis Yes CRP elevated History of psoriatic arthritis care home current use of non-steroidal anti-inflammatories (NSAID) Long-term use of high-risk medication Methotrexate, care home, current use Ulnar neuropathy of both upper extremities DDD (degenerative disc disease), cervical Lumbar degenerative disc disease Osteoarthritis of cervical spine, unspecified spinal osteoarthritis complication status Osteoarthritis of both hands, unspecified osteoarthritis type Osteoarthritis of lumbar spine, unspecified spinal osteoarthritis complication status Scoliosis of lumbar spine, unspecified scoliosis type Psoriasis 1. Time was spent with the patient today in education in re: to all their medical conditions. A complete H&P&ROS was obtained and is either in this note or in the EHR. Please do not hesitate to contact me with any questions or concerns re: this patient. Past History Past medical, surgical, family, and social histories have been reviewed and updated with the patient today and are located elsewhere in the medical record. 2. Thank you for allowing me to participate in the care of your patient. With your permission I would like to F/U with your patient. 3. Negative Hep A&B&C serology, Lyme disease, KING, ANCA, Celiac, CCP, RF 4. CRP was negative at < 8.9 and is now elevated at 4.07 5. Patient told to stop smoking 6. Stop OTC Aleve and IBP 7. ESR was normal at 24 and still is at 12 8. Tramadol did not help 9. Enbrel stopped due severe boils 10. Humira stopped due to unknown reason - but is now back on it 11. Glucose was a little elevated at 105 and patient is going to F/U with PCP 12. Rec: derm evsuleman and F/U 13. Patient has Symbicort inhaler 14. Hgb was low at 13.9 and is now normal at 14.0 15. Low 25 hydroxy Vit D level at 22.5 with normal 1,25 dihydroxy vit D level 16. Repeat Vit D level on or about 02/05/2020 with copy to PCP 17. Rx given to increase Dosoquin to 2 pills a day 18. Rx given to increase Methotrexate to 7 pills one day a wek 19. ALISE level was normal at 41 20. Rx given to increase Humira to once a week 21. Lab on or about 12/05/2019 and every 2 months thereafter 22. Rx given for PT - patient declines has been there and is doing HEP and they told him there was nothing more they could do for him - patient declines again 23. Hold Methtorexate week before, week during and, week after any surgery. Hold Methotrexate any time have an infection can restart once off of ATB and/or antiviral and free of infection. Hold Methotrexate week before, week during and, week after any live attenuated vaccine (shingles). Monitor CBC/LFT/Renal func every 2-3 months on Methotrexate. Hold Methotrexate anytime there is an open wound and can restart once wound has healed 24. Hold Humira 2 weeks before and 2 weeks after any surgery or live vaccine (shingles). Hold Humira anytime have an infection can restart once of off ATB and/or antiviral and free of infection. HoldHumira if open wound can restart once wound has healed. 25. TB test was negative 26. F/U with me in 4 months 27. Patient declines prednisone 28. Patient declines referral to OT - patient declines again 29. Patient is going to F/U with PCP about HTN. documented in this encounter* Pierre Engel Jr., DO - 06/01/2020 7:45 AM EST History of Present Illness Humira started 02/2020. Humira has been helping and not bothering there patient. Presence of Pain: denies pain/discomfort . Due to complex issues I spent at least 26 minutes in face to face time withpatient, more than 50% of that time was spent on counseling and coordination of care. Energy level is doable. Joint pain is not today. Asthma has been pretty good. Back pain is no. Neck pain is no. They did injections for upper neck and nerve burn for lower back. Rash/psoriasis is no. Patient is here for a 4 Month F/U. Patient states that he is not doing too bad. Patient states that he has had a few flare ups. Patient denies pain today. Patient states that the weather has caused pain that comesand goes. Patient is still smoking. I have been told that patient is on a high risk medication as it either treats cancer or requires blood work every 2-3 months. humira is lasting whole week. Patient did not increase Dosoquin to 2 pills a day as instructed. Review of Systems Constitutional: Negative. HENT: Negative. Eyes: Negative. Respiratory: Asthma Cardiovascular: Negative. Gastrointestinal: Negative. Endocrine: Negative. Genitourinary: Negative. Musculoskeletal: Negative. Skin: psoriasis Allergic/Immunologic: Negative. Neurological: Negative. Hematological: Negative. Psychiatric/Behavioral: Negative. Vitals: Blood pressure 118/62, pulse 71, temperature 98.3 F (36.8 C), height 1.651 m (5' 5 ), weight 54.9 kg (121 lb), SpO2 95 %. Physical Exam Vitals signs and nursing note reviewed. Constitutional: Appearance: Normal appearance. He is well-developed. HENT: Head: Normocephalic and atraumatic. Right Ear: External ear normal. Left Ear: External ear normal. Nose: Nose normal. Mouth/Throat: Mouth: Mucous membranes are moist. Pharynx: Oropharynx is clear. Comments: mask Eyes: Extraocular Movements: Extraocular movements intact and EOM normal. Conjunctiva/sclera: Conjunctivae normal. Pupils: Pupils are equal, round, and reactive to light. Neck: Musculoskeletal: Neck supple. Cardiovascular: Rate and Rhythm: Normal rate and regular rhythm. Pulses: Radial pulses are 2+ on the right side and 2+ on the left side. Heart sounds: Normal heart sounds. Pulmonary: Effort: Pulmonary effort is normal. Breath sounds: Normal breath sounds. Abdominal: General: Bowel sounds are normal. Palpations: Abdomen is soft. Musculoskeletal: Right shoulder: Normal. Left shoulder: Normal. Right elbow: He exhibits decreased range of motion. Left elbow: He exhibits decreased range of motion. Right wrist: He exhibits decreased range of motion. Left wrist: He exhibits decreased range of motion. Right knee: He exhibits decreased range of motion. Left knee: He exhibits decreased range of motion. Right ankle: He exhibits decreased range of motion. Left ankle: He exhibits decreased range of motion. Right upper arm: Normal. Left upper arm: Normal. Right forearm: Normal. Left forearm: Normal. Right hand: He exhibits decreased range of motion and deformity. Left hand: He exhibits decreased range of motion. Hands: Right upper leg: Normal. Left upper leg: Normal. Right lower leg: Normal. Left lower leg: Normal. Legs: Feet: Skin: General: Skin is warm and dry. Findings: Rash present. Comments: Psoriasis scalp - improved Nicotine staining L hand Neurological: Mental Status: He is alert and oriented to person, place, and time. Cranial Nerves: Cranial nerves are intact. Sensory: Sensory deficit present. Motor: Weakness present. Coordination: Coordination is intact. Gait: Gait is intact. Comments: Positive tinel's B/L wrists . Decreased air purifier servicer strength L hand Psychiatric: Mood and Affect: Mood normal. Behavior: Behavior normal. Thought Content: Thought content normal. Judgment: Judgment normal. Neurologic Exam Mental Status Oriented to person, place, and time. Cranial Nerves CN III, IV, Pupils are equal, round, and reactive to light. Extraocular motions are normal. Gait, Coordination, and Reflexes Gait Gait: normal Assessment and Plan Encounter Diagnoses Name Primary? Psoriatic arthritis Yes Psoriasis Neutrophilia Monocytosis Leukocytosis, unspecified type Left shift Methotrexate, care home, current use Long-term use of high-risk medication care home current use of non-steroidal anti-inflammatories (NSAID) History of psoriatic arthritis Eosinophilic leukocytosis, unspecified type Hypoglycemia Ulnar neuropathy of both upper extremities Scoliosis of lumbar spine, unspecified scoliosis type Osteoarthritis of lumbar spine, unspecified spinal osteoarthritis complication status Osteoarthritis of both hands, unspecified osteoarthritis type Osteoarthritis of cervical spine, unspecified spinal osteoarthritis complication status Lumbar degenerative disc disease DDD (degenerative disc disease), cervical 1. Time was spent with the patient today in education in re: to all their medical conditions. A complete H&P&ROS was obtained and is either in this note or in the EHR. Please do not hesitate to contact me with any questions or concerns re: this patient. Past History Past medical, surgical, family, and social histories have been reviewed and updated with the patient today and are located elsewhere in the medical record. 2. Thank you for allowing me to participate in the care of your patient. With your permission I would like to F/U with your patient. 3. Negative Hep A&B&C serology, Lyme disease, KING, ANCA, Celiac, CCP, RF 4. CRP was elevated at 4.07 and is now negative at < 2.9 5. Patient told to stop smoking 6. Stop OTC Aleve and IBP 7. ESR was normal at 12 and still is at 11 8. Tramadol did not help 9. Enbrel stopped due severe boils 10. Humira stopped due to unknown reason - but is now back on it 11. Glucose was a little elevated at 105 and patient is going to F/U with PCP 12. Rec: derm eval and F/U 13. Patient has Symbicort inhaler 14. Glucose is low at 69 and patient is going to F/U with PCP 15. Calcium is low at 8.3. and patient is going to F/U with PCP - patient was started on calcium byPCP - ionized calcium is normal at 5.1 16. WBC is elevated at 13.4 17. Dosoquin is 1 pill a day 18. If leukocytosis continues rec: Hem/Onc eval 19. ALISE level was normal at 41 20. Call if need Rx's 21. Lab on or about 06/05/2020 and every 2 months thereafter - patient has standing order 22. Rx given for PT - patient declines has been there and is doing HEP and they told him there was nothing more they could do for him - patient declines again 23. Hold Methtorexate week before, week during and, week after any surgery. Hold Methotrexate any time have an infection can restart once off of ATB and/or antiviral and free of infection. Hold Methotrexate week before, week during and, week after any live attenuated vaccine (shingles). Monitor CBC/LFT/Renal func every 2-3 months on Methotrexate. Hold Methotrexate anytime there is an open wound and can restart once wound has healed 24. Hold Humira 2 weeks before and 2 weeks after any surgery or live vaccine (shingles). Hold Humira anytime have an infection can restart once of off ATB and/or antiviral and free of infection. HoldHumira if open wound can restart once wound has healed. 25. TB test was negative 26. F/u with me in 4 months 27. Patient declines prednisone 28. Patient declines referral to OT - patient declines again documented in this encounter Assessments Diagnosis Psoriatic arthritis- Primary Psoriatic arthropathy Methotrexate, 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, current use Encounter for long-term (current) use of other medications Long-term use of high-risk medication 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) Encounter for long-term (current) use of non-steroidal anti-inflammatories History of psoriatic arthritis Personal history of arthritis Fatigue, unspecified type Asthma, unspecified asthma severity, unspecified whether complicated, unspecified whether persistent Paresthesia of both hands Dorsalgia Pain in thoracic spine Cervicalgia Bilateral carpal tunnel syndrome Carpal tunnel syndrome Weakness of both hands Tendonitis of both rotator cuffs Subacromial bursitis Other specified disorders of rotator cuff syndrome of shoulder and allied disorders Right elbow pain Pain in joint, upper arm Hip pain, left Pain in joint, pelvic region and thigh Hip flexor tendonitis, left Disorder of bone and cartilage Disorder of bone and cartilage, unspecified Chronic pain of both shoulders Pain in joint, shoulder region Bilateral wrist pain Bilateral hand pain Pain in limb Bilateral biceps tendonitis Diagnosis Psoriatic arthritis Psoriatic arthropathy Methotrexate, care home, current use Encounter for long-term (current) use of other medications Long-term use of high-risk medication 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) Encounter for long-term (current) use of non-steroidal anti-inflammatories History of psoriatic arthritis Personal history of arthritis Fatigue, unspecified type Asthma, unspecified asthma severity, unspecified whether complicated, unspecified whether persistent Paresthesia of both hands Dorsalgia Pain in thoracic spine Cervicalgia Bilateral carpal tunnel syndrome Carpal tunnel syndrome Weakness of both hands Tendonitis of both rotator cuffs Subacromial bursitis Other specified disorders of rotator cuff syndrome of shoulder and allied disorders Right elbow pain Pain in joint, upper arm Hip pain, left Pain in joint, pelvic region and thigh Hip flexor tendonitis, left Disorder of bone and cartilage Disorder of bone and cartilage, unspecified Chronic pain of both shoulders Pain in joint, shoulder region Bilateral wrist pain Bilateral hand pain Pain in limb Bilateral biceps tendonitis Diagnosis terminal manager current use of immunosuppressive drug- Primary Diagnosis Psoriatic arthritis- Primary Psoriatic arthropathy care home current use of non-steroidal anti-inflammatories (NSAID) Encounter for long-term (current) use of non-steroidal anti-inflammatories History of psoriatic arthritis Personal history of arthritis Long-term use of high-risk medication Methotrexate, care home, current use Encounter for long-term (current) use of other medications Abnormal renal function test Nonspecific abnormal results of kidney function study Ulnar neuropathy of both upper extremities Lesion of ulnar nerve Osteoarthritis of both hands, unspecified osteoarthritis type Scoliosis of lumbar spine, unspecified scoliosis type Osteoarthritis of lumbar spine, unspecified spinal osteoarthritis complication status Lumbar degenerative disc disease Degeneration of lumbar or lumbosacral intervertebral disc DDD (degenerative disc disease), cervical Degeneration of cervical intervertebral disc Osteoarthritis of cervical spine, unspecified spinal osteoarthritis complication status Fatigue, unspecified type Asthma, unspecified asthma severity, unspecified whether complicated, unspecified whether persistent Paresthesia of both hands Dorsalgia Pain in thoracic spine Cervicalgia Bilateral carpal tunnel syndrome Carpal tunnel syndrome Weakness of both hands Tendonitis of both rotator cuffs Subacromial bursitis Other specified disorders of rotator cuff syndrome of shoulder and allied disorders Right elbow pain Pain in joint, upper arm Hip pain, left Pain in joint, pelvic region and thigh Hip flexor tendonitis, left Disorder of bone and cartilage Disorder of bone and cartilage, unspecified Chronic pain of both shoulders Pain in joint, shoulder region Bilateral wrist pain Bilateral hand pain Pain in limb Bilateral biceps tendonitis Diagnosis Methotrexate, 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, current use- Primary Encounter for long-term (current) use of other medications Psoriatic arthritis Psoriatic arthropathy Diagnosis Psoriatic arthritis Psoriatic arthropathy Anemia, unspecified type History of psoriatic arthritis Personal history of arthritis care home current use of non-steroidal anti-inflammatories (NSAID) Encounter for long-term (current) use of non-steroidal anti-inflammatories Long-term use of high-risk medication Methotrexate, care home, current use Encounter for long-term (current) use of other medications Ulnar neuropathy of both upper extremities Lesion of ulnar nerve DDD (degenerative disc disease), cervical Degeneration of cervical intervertebral disc Lumbar degenerative disc disease Degeneration of lumbar or lumbosacral intervertebral disc Osteoarthritis of cervical spine, unspecified spinal osteoarthritis complication status Osteoarthritis of both hands, unspecified osteoarthritis type Osteoarthritis of lumbar spine, unspecified spinal osteoarthritis complication status Scoliosis of lumbar spine, unspecified scoliosis type Psoriasis Other psoriasis Diagnosis Psoriatic arthritis Psoriatic arthropathy CRP elevated Elevated C-reactive protein (CRP) History of psoriatic arthritis Personal history of arthritis care home current use of non-steroidal anti-inflammatories (NSAID) Encounter for long-term (current) use of non-steroidal anti-inflammatories Long-term use of high-risk medication Methotrexate, 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[employer], current use Encounter for long-term (current) use of other medications Ulnar neuropathy of both upper extremities Lesion of ulnar nerve DDD (degenerative disc disease), cervical Degeneration of cervical intervertebral disc Lumbar degenerative disc disease Degeneration of lumbar or lumbosacral intervertebral disc Osteoarthritis of cervical spine, unspecified spinal osteoarthritis complication status Osteoarthritis of both hands, unspecified osteoarthritis type Osteoarthritis of lumbar spine, unspecified spinal osteoarthritis complication status Scoliosis of lumbar spine, unspecified scoliosis type Psoriasis Other psoriasis Diagnosis Psoriatic arthritis- Primary Psoriatic arthropathy Psoriasis Other psoriasis Neutrophilia Other specified disease of white blood cells Monocytosis Monocytosis (symptomatic) Leukocytosis, unspecified type Left shift Bandemia Methotrexate, care home, current use Encounter for long-term (current) use of other medications Long-term use of high-risk medication care home current use of non-steroidal anti-inflammatories (NSAID) Encounter for long-term (current) use of non-steroidal anti-inflammatories History of psoriatic arthritis Personal history of arthritis Eosinophilic leukocytosis, unspecified type Hypoglycemia Hypoglycemia, unspecified Ulnar neuropathy of both upper extremities Lesion of ulnar nerve Scoliosis of lumbar spine, unspecified scoliosis type Osteoarthritis of lumbar spine, unspecified spinal osteoarthritis complication status Osteoarthritis of both hands, unspecified osteoarthritis type Osteoarthritis of cervical spine, unspecified spinal osteoarthritis complication status Lumbar degenerative disc disease Degeneration of lumbar or lumbosacral intervertebral disc DDD (degenerative disc disease), cervical Degeneration of cervical intervertebral disc Diagnosis care home current use of immunosuppressive drug Diagnosis Lesion of ulnar nerve, bilateral- Primary Psoriatic arthritis Psoriatic arthropathy Methotrexate, care home, current use Encounter for long-term (current) use of other medications Long-term use of high-risk medication care home current use of non-steroidal anti-inflammatories (NSAID) Encounter for long-term (current) use of non-steroidal anti-inflammatories History of psoriatic arthritis Personal history of arthritis Fatigue, unspecified type Asthma, unspecified asthma severity, unspecified whether complicated, unspecified whether persistent Paresthesia of both hands Dorsalgia Pain in thoracic spine Cervicalgia Bilateral carpal tunnel syndrome Carpal tunnel syndrome Weakness of both hands Tendonitis of both rotator cuffs Subacromial bursitis Other specified disorders of rotator cuff syndrome of shoulder and allied disorders Right elbow pain Pain in joint, upper arm Hip pain, left Pain in joint, pelvic region and thigh Hip flexor tendonitis, left Disorder of bone and cartilage Disorder of bone and cartilage, unspecified Chronic pain of both shoulders Pain in joint, shoulder region Bilateral wrist pain Bilateral hand pain Pain in limb Bilateral biceps tendonitis Summary Purpose Family History No Family History Records FoundNo Family History Records Found Advance Directives No Advanced Directives Records FoundNo Advanced Directives Records Found Additional Source Comments Reason for Visit (unrecogniz ed section and content) Reason Comments Joint Pain Patient is here toda y for their 2 week EMG F/u. Patient states that he has been okay since his last appointment. Nothing new. Reason Comments Other Reason Comments Insurance Humira Reason Comments Medication Management Reason Comments Joint Pain Patient is here toda y for his 4 Month F/U. Patient states he has been doing okay since his last appointment. Patient states he is having SHYLA leg weakness. Patient states he is having extreme fatigue and no energy everyday. Patient states he notices some approvment with the Humira. Reason Comments Joint Pain Patient is here for a 4Month F/U. Patient states he has back pain rates a 5. Patient states that methotrexate and humira is not as affected this past month. Patient states his psoriasis is coming back. Patient states his pain is coming back. Patient states he just has injections in his back a week ago and only helped a little bit. Reason Comments Joint Pain Patient is here for a 4 Month F/U. Patient states that he is not doing too bad. Patient states that he has had a few flare ups. Patient denies pain today. 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) History of psoriatic arthritis Fatigue, unspecified type Asthma, unspecified asthma severity, unspecified whether complicated, unspecified whether persistent Paresthesia of both hands Dorsalgia Cervicalgia Bilateral carpal tunnel syndrome Weakness of both hands Tendonitis of both rotator cuffs Subacromial bursitis Right elbow pain Hip pain, left Hip flexor tendonitis, left Disorder of bone and cartilage Chronic pain of both shoulders Bilateral wrist pain Bilateral hand pain Bilateral biceps tendonitis Procedures EMG & NERVE CONDUCTION Toro Gonzalez, Pierre Orosco, DO [address] [place] [address] Jesus Duong MD [address] [place] [address] Reason Comments Joint Pain Patient is here for a 4 Month F/U. Patient states that he is having stiffness in his joints. Patient states that the weather causes him to have more stiffness. Patient states that he has good days and bad days. Reason Comments Joint Pain Patient is here toda y for his 4 Month F/U. Patient states he has been doing good since his last appointment. Patient states the Humira is working good and he is not having joint pain, Reason Comments Follow-up Addendum Note - Glenys Bagley LPN - 06/01/2020 7:45 AM EST Miscellaneous Notes (unrecog nized section and content) Addended by: GLENYS BAGLEY on: 06/01/2020 08:44 AM Modules accepted: Orders documented in this encounter Care Teams (unrecognized sec tion and content) Food Services Director Relationship Specialty Start Date End Date Susan Zaldivar MD [address] [place], [place] [id number] PCP - General Family Medicine 01/21/19 Food Services Director Relationship Specialty Start Date End Date Susan Zaldivar MD [address] [place] [address] PCP - General Family Medicine 01/21/19 (unrecognized sect ion and content) No Status Records FoundNo Status Records Found INFORMATION SOURCE (unrecogn ized section and content) DATE CREATED AUTHOR AUTHOR'S DEVON ESCOBAR 02/11/2023 Katheryn bustos FOR RECORDS PERTAINING TO PATIENTS WHO ARE OR HAVE BEEN ENROLLED IN A CHEMICAL DEPENDENCY/SUBSTANCEABUSE PROGRAM, SOME INFORMATION MAY BE OMITTED. This clinical summary was aggregated from multiple sources. Caution should be exercised in using it in the provision of clinical care. This summary normalizes information from multiple sources, and as a consequence, information in this document may materially change the coding, format and clinical context of patient data. In addition, data may be omitted in some cases. CLINICAL DECISIONS SHOULD BE BASED ON THE PRIMARY CLINICAL RECORDS. [employer] provides no warranty or guarantee of the accuracy or completeness of information in this document.
[2023-05-23 15:32] LABS: Absolute Lymphocyte Count 1.58 X10^3/uL (0.83-4.51); Absolute Neutrophil Count 7.3 X10^3/uL (2.0-7.7); Basophil# 0.12 X10^3/uL; Basophil% 1.1 % (0-1); Eosinophil# 0.54 X10^3/uL; Eosinophils% 5.1 % (0-5); Hematocrit 39.3 % (40-54); Lymphocyte # 1.58 X10^3/ul (0.83-4.51); Lymphocyte % 14.9 % (19-41); Mean Corp Hgb Conc 33.1 g/dL (32-36); Mean Corpuscular Hgb 33.1 pg (27.0-32.0); Monocyte# 0.99 X10^3/uL; Monocyte% 9.3 % (0-10); NRBC Flagged by Analyzer 0 % (0-5); Neutrophil # 7.34 X10^3/uL (2.7-7.7); Platelet Count 412 K/mm3 (150-450); RBC Distribution Width CV 12.4 % (11.6-14.6); RBC Distribution Width SD 46.3 fl (35.1-43.9); Red Blood Count 3.93 M/mm3 (4.6-6.2); White Blood Count 10.6 K/mm3 (4.4-11.0)
[2023-05-23 16:07] LABS: Erythrocyte Sedimentation Rate 20 mm/hr (0-20)
[2023-05-23 16:47] LABS: AST(SGOT) 16 U/L (15-37); Alanine Aminotransfer ALT/SGPT 24 U/L (16-61); CRP < 2.90 mg/L (0.0-3.0); Creatinine, Serum 1.17 mg/dL (0.70-1.30); EST Glomerular Filtration Rate 70 mL/min (>60); Est Glom Filt Rate - Afr Amer 85 mL/min (>60)
== END | disposition home or self-care (01) ==
LOC: MTLAB 13:49
PROVIDERS: PCP Family Medicine; Referring Provider Internal Medicine Rheumatology; Visit Provider Internal Medicine Rheumatology
DX: L40.50 Arthropathic psoriasis, unspecified (principal); M41.9 Scoliosis, unspecified; M50.30 Other cervical disc degeneration, unspecified cervical region; M51.36 Other intervertebral disc degeneration, lumbar region; M47.812 Spondylosis without myelopathy or radiculopathy, cervical region; M19.041 Primary osteoarthritis, right hand; M19.042 Primary osteoarthritis, left hand; M47.816 Spondylosis without myelopathy or radiculopathy, lumbar region; D64.9 Anemia, unspecified; E55.9 Vitamin D deficiency, unspecified; Z79.899 Other long term (current) drug therapy; Z79.631 Long term (current) use of antimetabolite agent; Z79.1 Long term (current) use of non-steroidal anti-inflammatories (NSAID)
CPT/HCPCS: 36415; 82565; 84450; 84460; 85025; 85652; 86140

== ENCOUNTER → 2023-08-26 | Outpatient (CLI) | payer MEDICARE, MEDICAID, SELFPAY ==
[2023-08-26 18:42] LABS: Vitamin D,25 Hydroxy 9.1 ng/mL
[2023-08-26 18:50] LABS: Anion Gap 8 (5-15); BUN 19 mg/dL (7-18); BUN/Creat Ratio 16.5 RATIO (10-20); Calcium,Total 8.9 mg/dL (8.5-10.1); Chloride 104 mmol/L (98-107); Creatinine, Serum 1.15 mg/dL (0.70-1.30); EST Glomerular Filtration Rate 72 mL/min (>60); Est Glom Filt Rate - Afr Amer 87 mL/min (>60); Glucose 106 mg/dL (74-106); Potassium 4.3 mmol/L (3.5-5.1); Sodium Level 138 mmol/L (136-145)
[2023-08-26 20:11] LABS: Ionized Calcium 4.88 mg/dL (4.36-5.20)
[2023-08-26 20:59] LABS: Ionized Calcium Order 4.88
[2023-08-28 07:52] LABS: PTHIN 102.5 pg/mL (18.4-80.1)
== END | disposition home or self-care (01) ==
PROVIDERS: PCP Family Medicine; Referring Provider Family Medicine; Visit Provider Family Medicine
DX: E87.6 Hypokalemia (principal); M81.0 Age-related osteoporosis without current pathological fracture; Z12.5 Encounter for screening for malignant neoplasm of prostate
CPT/HCPCS: 36415; 80048; 82306; 82330; 83970; 84153; G0103

== ENCOUNTER → 2023-09-09 | Outpatient (CLI) | payer MEDICARE, SELFPAY ==
[2023-09-09 17:51] LABS: Absolute Lymphocyte Count 2.88 X10^3/uL (0.83-4.51); Absolute Neutrophil Count 4.6 X10^3/uL (2.0-7.7); Basophil% 2.1 % (0-1); Eosinophil# 0.84 X10^3/uL; Eosinophils% 8.6 % (0-5); Hemoglobin 13.2 g/dL (13.0-16.5); Lymphocyte # 2.88 X10^3/ul (0.83-4.51); Lymphocyte % 29.6 % (19-41); Mean Corp Hgb Conc 32.2 g/dL (32-36); Mean Corpuscular Volume 96.2 fL (80-94); Mean Platelet Vol. 10.1 fl (6.2-12.0); Monocyte# 1.19 X10^3/uL; Monocyte% 12.2 % (0-10); NRBC Flagged by Analyzer 0 % (0-5); Neutrophil # 4.58 X10^3/uL (2.7-7.7); Neutrophil % 47.2 % (47-70); Platelet Count 401 K/mm3 (150-450); RBC Distribution Width SD 42.4 fl (35.1-43.9); Red Blood Count 4.26 M/mm3 (4.6-6.2); White Blood Count 9.7 K/mm3 (4.4-11.0)
[2023-09-09 18:21] LABS: Erythrocyte Sedimentation Rate 17 mm/hr (0-20)
[2023-09-09 18:53] LABS: AST(SGOT) 16 U/L (15-37); Alanine Aminotransfer ALT/SGPT 27 U/L (16-61); CRP < 2.90 mg/L (0.0-3.0); Creatinine, Serum 1.32 mg/dL (0.70-1.30); EST Glomerular Filtration Rate 61 mL/min (>60); Est Glom Filt Rate - Afr Amer 74 mL/min (>60)
== END | disposition home or self-care (01) ==
LOC: MTLAB 16:57
PROVIDERS: PCP Family Medicine; Referring Provider Internal Medicine Rheumatology; Visit Provider Internal Medicine Rheumatology
DX: L40.59 Other psoriatic arthropathy (principal); M41.9 Scoliosis, unspecified; G56.23 Lesion of ulnar nerve, bilateral upper limbs; M50.30 Other cervical disc degeneration, unspecified cervical region; M51.36 Other intervertebral disc degeneration, lumbar region; M47.812 Spondylosis without myelopathy or radiculopathy, cervical region; M19.041 Primary osteoarthritis, right hand; M19.042 Primary osteoarthritis, left hand; M47.816 Spondylosis without myelopathy or radiculopathy, lumbar region; D64.9 Anemia, unspecified; E55.9 Vitamin D deficiency, unspecified; Z79.631 Long term (current) use of antimetabolite agent; Z79.899 Other long term (current) drug therapy; Z79.1 Long term (current) use of non-steroidal anti-inflammatories (NSAID); Z79.83 Long term (current) use of bisphosphonates; Z87.2 Personal history of diseases of the skin and subcutaneous tissue
CPT/HCPCS: 36415; 82565; 84450; 84460; 85025; 85652; 86140

== ENCOUNTER → 2023-09-19 | Outpatient (CLI) | payer MEDICARE, SELFPAY ==
--- NOTE | 2023-09-19 14:04 | BD_ITS ---
STUDY: DUAL ENERGY X-RAY ABSORPTIOMETRY / DXA REASON FOR EXAM: Male, 48 years old. 696. TECHNIQUE: Bone Mineral Density (BMD) measurements of lumbar spine and bilateral hips were obtained. COMPARISON: Comparison is made with prior study dated April 14, 2020. FINDINGS: Lumbar Spine (L1-L4): g/cm2 (0.820) / T-score (-2.5) / Z-score (-2.1) Findings are suggestive of osteoporosis with a high fracture risk. Left Femur Total: g/cm2 (0.657) / T-score (-2.5) / Z-score (-2.2) Left Femoral Neck: g/cm2 (0.586) / T-score (-2.5) / Z-score (-1.8) Right Femur Total: g/cm2 (0.614) / T-score (-2.8) / Z-score (-2.5) Right Femoral Neck: g/cm2 (0.591) / T-score (-2.5) / Z-score (-1.8) The T-Scores on the most recent prior examination were: Lumbar Spine (L1-L4): There has been worsening of bone density since the previous examination. Left Femur Total: which represents a worsening of 4.8%. Right Femur Total: which represents a worsening of 9.7%. BD/Dexa Bone Density Study IMPRESSION: The patient is considered osteoporotic as outlined below according to World Gabe Organization (WHO) criteria with a high fracture risk. There has been worsening of bone density since the previous examination. Reference Information: The T-score is the number of standard deviations above or below the standard which is normal for young adults at their peak bone mineral density. The World Health Organization (WHO) interprets the T-scores as follows: Above -1 Normal bone density Between -1 and -2.5 Osteopenia Equal to / or below -2.5 Osteoporosis As a practical clinical guideline, osteopenia may be graded as follows: Mild -1 through -1.5 Moderate -1.6 through -2.0 Severe -2.1 through -2.4 The Z-score is the number of standard deviations above or below age-matched controls. A Z-score of less than -1.5 would be considered abnormal. References: 1. NIH Osteoporosis and Related Bone Diseases www osteo.org 2. International Society for Clinical Densitometry www iscd.org 3. National Osteoporosis Foundation www nof.org Electronically Signed: Sal Cole MD at 9:28 EDT ,
== END | disposition home or self-care (01) ==
LOC: OPBD 13:59
PROVIDERS: PCP Family Medicine; Referring Provider Family Medicine; Visit Provider Family Medicine
DX: M81.0 Age-related osteoporosis without current pathological fracture (principal)
CPT/HCPCS: 77080